=== PATIENT | male | born 1955 | race Caucasian/White ===

== ENCOUNTER 2016-04-28 08:24 | Observation (INO) | payer MEDICARE, OTHER ==
[2016-04-28] VITALS (8 sets, daily range): BP systolic 127–190; BP diastolic 82–108; PULSE 68–128; RESP 17–28; TEMP 96.7–98; O2SAT 91–100
[~2016-04-28] VITALS: Ht 175.3 cm; Wt 75.6 kg
[~2016-04-28 08:24] MED LIST: ALBU1.25 NEB; ALBU8I INH; DILT180C PO; DOXY100T PO; LISI-360 PO; PRED20 PO
[2016-04-28] MEDS ORDERED: SODIUM CHLORIDE 0.9% FLUSH 5 ML FLUSH IVF PRN ×2 (08:45→10:30)
[2016-04-28] MEDS ORDERED: methylPREDNISolone SOD SUCC 125 MG/2 ML VIAL IVP ONE (08:45)
[2016-04-28] MEDS ORDERED: ALBUAER3 INH (08:47)
[2016-04-28] MEDS ORDERED: ALBU1.25 NEB (08:47)
--- NOTE | 2016-04-28 08:57 | RADRPT ---
EXAM DATE/TIME: 04/28/2016 08:48 [facility] COMPARISON: No previous studies available for comparison. INDICATIONS : Very short of breath, smoker MEDICAL HISTORY : Emphysema. Chronic obstructive pulmonary disease. SURGICAL HISTORY : None. ENCOUNTER: Initial ACUITY: 1 day PAIN SCORE: 0/10 LOCATION: Bilateral chest FINDINGS: A single view of the chest demonstrates hyperinflation which can be seen with COPD. No infiltrates a re seen. Heart is normal in size. The mediastinal contours are unremarkable. Osseous structures are intact. CONCLUSION: Hyperinflation which can be seen with COPD. No evidence for an infiltrate. Enoch Edge MD on April 28, 2016 at 8:55 Board Certified Radiologist. This report was verified electronically.
[2016-04-28] MEDS: RESP: ALBUTEROL 2.5 MG/IPRATROPIUM 0.5 MG NEB (SCH) INH ×2 (08:59→09:00)
--- NOTE | 2016-04-28 09:03 | PD ---
HPI Chief Complaint: Respiratory Symptoms Time Seen by Provider: 08:36 Travel History International Travel<30 days: No Contact w/Intl Traveler<30days: No Traveled to known affect area: No History of Present Illness HPI Patient is a pleasant 60-year-old male who presents the emergency department with complaint of shortness of breath. Patient has long-standing history of COPD and ran out of his home albuterol approximately 2-3 days ago. Since, he has had increasing shortness of breath, wheezing. He has a chronic smoker's cough but this is increased in frequency and he is now producing sputum which is atypical for him. Patient denies any fevers, chills, peripheral edema, history of CHF. PFSH Past Medical History Arthritis: No Asthma: Yes Autoimmune Disease: No Blood Disorders: No Anxiety: No Depression: No Heart Rhythm Problems: No Cancer: No Cardiovascular Problems: Yes High Cholesterol: No Chemotherapy: No Chest Pain: No Congestive Heart Failure: No COPD: Yes Cerebrovascular Accident: No Coronary Artery Disease: No Diabetes: No Diminished Hearing: No Endocrine: No Gastrointestinal Disorders: Yes (NUMEROUS GI SERIES, ENDOSCOPY) GERD: Yes Glaucoma: No Genitourinary: No Headaches: No Hepatitis: Yes (HEP A IN HIGH SCHOOL) Hiatal Hernia: No Hypertension: Yes Immune Disorder: No Kidney Stones: No Musculoskeletal: No Neurologic: No Psychiatric: No Reproductive: No Respiratory: Yes Immunizations Current: No Migraines: No Myocardial Infarction: No Pneumonia: Yes Radiation Therapy: No Renal Failure: No Seizures: No Sickle Cell Disease: No Sleep Apnea: No Thyroid Disease: No Ulcer: No Influenza Vaccination: Yes Past Surgical History Abdominal Surgery: Yes ( UPPER GI) AICD: No Appendectomy: No Arteriovenous Shunt: No Cardiac Surgery: No Cholecystectomy: No Ear Surgery: No Endocrine Surgery: No Eye Surgery: No Genitourinary Surgery: No Gynecologic Surgery: No Insulin Pump: No Joint Replacement: No Oral Surgery: No Pacemaker: No Thoracic Surgery: No Social History Alcohol Use: No Tobacco Use: Yes (1PPW) Substance Use: No (DENIES) Allergies-Medications (Allergen,Severity, Reaction): Coded Allergies: Codeine (Verified Adverse Reaction, Mild, HEART SKIPPS BEAT., 07/23/15) Reported Meds & Prescriptions Reported Meds & Active Scripts Active Reported Lisinopril 10 Mg Tab 10 Mg PO DAILY Cartia Xt (Diltiazem ER 24 HR) 180 Mg Caper 180 Mg PO DAILY Albuterol Neb (Albuterol Sulfate) 1.25 Mg/3 Ml Neb 1.25 Mg NEB Q4HR NEB PRN Proair Hfa 8.5 GM Inh (Albuterol Sulfate) 90 Mcg/Act Aer 1 Puff INH Q4H PRN 108 mcg/actuation Review of Systems Except as stated in HPI: all other systems reviewed are Neg Physical Exam Narrative GENERAL: Adult male appearing older than stated age in mild to moderate respiratory distress SKIN: Warm and dry. HEAD: Normocephalic. EYES: No scleral icterus. No injection or drainage. ENT: Mucous membranes pink and moist. NECK: Supple without JVD CARDIOVASCULAR: Tachycardic with heart rate in the 110s, regular rhythm. No murmur appreciated. RESPIRATORY: Mild to moderate respiratory distress with tachypnea, increased work of breathing, prolonged expiratory phase and diffuse wheezing GASTROINTESTINAL: Abdomen soft, non-tender, nondistended. MUSCULOSKELETAL: No edema. NEUROLOGICAL: Awake and alert. Motor grossly within normal limits. Normal speech. PSYCHIATRIC: Appropriate mood and affect; insight and judgment normal. Data Data Last Documented VS Vital Signs Date Time Temp Pulse Resp B/P Pulse Ox O2 Delivery O2 Flow Rate FiO2 04/28/16 09:00 100 21 04/28/16 08:35 122 22 Room Air 04/28/16 08:27 98.0 180/102 Orders Iv Access Insert/Monitor (04/28/16 08:36) Electrocardiogram (04/28/16 08:36) Ecg Monitoring (04/28/16 08:36) Oximetry (04/28/16 08:36) Chest, Single Ap (04/28/16 08:36) Sodium Chloride 0.9% Flush (Ns Flush) (04/28/16 08:45) Methylprednisolone So Succ Inj (Solumedr (04/28/16 08:45) Albuterol-Ipratropium Neb (Duoneb Neb) (04/28/16 08:45) Complete Blood Count With Diff (04/28/16 08:54) Basic Metabolic Panel (Bmp) (04/28/16 08:54) Blood Culture (04/28/16 08:54) Lactic Acid Sepsis Protocol (04/28/16 08:54) Labs Laboratory Tests Test 04/28/16 04/28/16 08:50 08:55 White Blood Count 12.7 TH/MM3 Red Blood Count 4.31 MIL/MM3 Hemoglobin 13.6 GM/DL Hematocrit 40.4 % Mean Corpuscular Volume 93.7 FL Mean Corpuscular Hemoglobin 31.6 PG Mean Corpuscular Hemoglobin 33.7 % Concent Red Cell Distribution Width 14.7 % Platelet Count 262 TH/MM3 Mean Platelet Volume 8.3 FL Neutrophils (%) (Auto) 77.4 % Lymphocytes (%) (Auto) 13.2 % Monocytes (%) (Auto) 8.0 % Eosinophils (%) (Auto) 0.9 % Basophils (%) (Auto) 0.5 % Neutrophils # (Auto) 9.8 TH/MM3 Lymphocytes # (Auto) 1.7 TH/MM3 Monocytes # (Auto) 1.0 TH/MM3 Eosinophils # (Auto) 0.1 TH/MM3 Basophils # (Auto) 0.1 TH/MM3 CBC Comment DIFF FINAL Differential Comment Sodium Level 134 MEQ/L Potassium Level 4.4 MEQ/L Chloride Level 100 MEQ/L Carbon Dioxide Level 22.8 MEQ/L Anion Gap 11 MEQ/L Blood Urea Nitrogen 16 MG/DL Creatinine 1.07 MG/DL Estimat Glomerular Filtration 70 ML/MIN Rate Random Glucose 106 MG/DL Calcium Level 9.2 MG/DL Lactic Acid Level 1.1 mmol/L MDM Medical Decision Making Medical Screen Exam Complete: Yes Emergency Medical Condition: Yes Medical Record Reviewed: Yes Differential Diagnosis 60-year-old male with long-standing history of COPD still smoking here with 2-3 days of increasing shortness of breath, wheezing, cough and sputum production since running out of albuterol. Differential includes COPD exacerbation/ bronchitis, pneumonia, pneumothorax, less likely arrhythmia, ACS, symptomatic anemia or PE. Narrative Course Patient placed on monitor, IV established and blood obtained. A twelve-lead EKG shows sinus tachycardia, rate [address] or T-wave abnormalities and normal intervals. Portable chest x-ray obtained that by my read shows hyperinflation but no evidence of focal pulmonary infiltrate. Patient given DuoNeb 3, 125 mg Solu-Medrol, azithromycin. CBC, BMP, blood cultures, lactic acid obtained and unremarkable. Patient feels improved however remains tachycardic and tachypneic and will be admitted for further optimization of his COPD exacerbation. Sepsis Criteria SIRS Criteria (2 or more): Heart rate over 90, RR > 20 or PaCO2 < 32, WBC > 83510, < 4000 or > 10% bands Criteria Outcome: Meets SIRS criteria Diagnosis Primary Impression: COPD exacerbation Admitting Information Admitting Physician Requests: Observation Lqauita Dumont MD Apr 28, 2016 09:03 Laquita Dumont MD Apr 28, 2016 09:03
[2016-04-28] MEDS ORDERED: LISI10TA3 PO (09:09)
[2016-04-28] MEDS ORDERED: CART180C PO (09:09)
[2016-04-28 09:11] LABS: AUTOMATED NEUTROPHIL # 9.8 TH/MM3 (1.8-7.7); BASOPHIL # 0.1 TH/MM3 (0-0.2); BASOPHIL % 0.5 % (0.0-2.0); EOSINOPHIL # 0.1 TH/MM3 (0-0.4); EOSINOPHIL % 0.9 % (0.0-4.0); HEMATOCRIT 40.4 % (39.0-51.0); HEMO FLAGS DIFF FINAL; LYMPH % 13.2 % (9.0-44.0); LYMPHOCYTE # 1.7 TH/MM3 (1.0-4.8); MEAN CELL VOLUME 93.7 FL (80.0-100.0); MEAN CORPUSCULAR HEMOGLOBIN 31.6 PG (27.0-34.0); MEAN CORPUSCULAR HGB CONC 33.7 % (32.0-36.0); NEUT % 77.4 % (16.0-70.0); PLATELET COUNT 262 TH/MM3 (150-450); RED BLOOD COUNT 4.31 MIL/MM3 (4.50-5.90); RED CELL DISTRIBUTION WIDTH 14.7 % (11.6-17.2); WHITE BLOOD COUNT 12.7 TH/MM3 (4.0-11.0)
[2016-04-28 09:30] LABS: BICARBONATE 22.8 MEQ/L (21.0-32.0); POTASSIUM 4.4 MEQ/L (3.5-5.1)
[2016-04-28] MEDS ORDERED: AZITHROMYCIN 250 MG TAB PO ONE (09:45)
[2016-04-28] MEDS ORDERED: KETOROLAC TROMETHAMINE 30 MG/ML (IVP) VIAL IV PUSH ONE (10:00)
--- NOTE | 2016-04-28 10:27 | HHI.HP ---
[facility] Service [facility] Primary Care Physician No Primary Care Physician Admission Diagnosis COPD exacerbation Diagnoses: (1) COPD exacerbation Chief Complaint: Shortness of breath Travel History International Travel<30 Days: No Contact w/Intl Traveler <30 Da: No Traveled to Known Affected Are: No History of Present Illness 60-year-old male with a history of COPD, nicotine dependence presented to the ED today for evaluation of worsening shortness of breath 3 days duration associated with pleuritic chest pain along with nonproductive cough without any febrile episode. Patient states, he has run out of his albuterol over the past 3-4 days. He denies any hemoptysis or GI bleed. During my exam, patient appears to be stable as he has received breathing treatment along with steroids in the ED. Vitals stable. Chest x-ray with finding of hyperinflated lung. Review of Systems Other 12 systems reviewed and are negative except for the ones mentioned in the history of present illness Past Family Social History Past Medical History COPD CHF Hypertension Past Surgical History No previous surgeries Reported Medications Lisinopril 10 Mg Tab 10 Mg PO DAILY Cartia Xt (Diltiazem ER 24 HR) 180 Mg Caper 180 Mg PO DAILY Albuterol Neb (Albuterol Sulfate) 1.25 Mg/3 Ml Neb 1.25 Mg NEB Q4HR NEB PRN Proair Hfa 8.5 GM Inh (Albuterol Sulfate) 90 Mcg/Act Aer 1 Puff INH Q4H PRN 108 mcg/actuation Allergies: Coded Allergies: Codeine (Verified Adverse Reaction, Mild, HEART SKIPPS BEAT., 07/23/15) Family History Significant for lung disease Social History Patient smokes a pack a surgery date for the last 30 years, he does drink alcohol occasionally. Denies any illicit drugs Physical Exam Vital Signs Vital Signs Date Time Temp Pulse Resp B/P Pulse Ox O2 Delivery O2 Flow Rate FiO2 04/28/16 10:00 99 17 127/82 95 Room Air 04/28/16 09:00 100 21 04/28/16 08:35 122 22 96 Room Air 04/28/16 08:27 98.0 128 28 180/102 91 Room Air Physical Exam GENERAL: This is a well-nourished, well-developed patient, in no apparent distress. SKIN: No rashes, ecchymoses or lesions. Cool and dry. HEAD: Atraumatic. Normocephalic. No temporal or scalp tenderness. EYES: Pupils equal round and reactive. Extraocular motions intact. No scleral icterus. No injection or drainage. ENT: Nose without bleeding, purulent drainage or septal hematoma. Throat without erythema, tonsillar hypertrophy or exudate. Uvula midline. Airway patent. NECK: Trachea midline. No JVD or lymphadenopathy. Supple, nontender, no meningeal signs. CARDIOVASCULAR: Regular rate and rhythm without murmurs, gallops, or rubs. RESPIRATORY: Clear to auscultation. Breath sounds equal bilaterally. Bilateral expiratory wheezes GASTROINTESTINAL: Abdomen soft, non-tender, nondistended. No hepato-splenomegaly , or palpable masses. No guarding. MUSCULOSKELETAL: Extremities without clubbing, cyanosis, or edema. No joint tenderness, effusion, or edema noted. No calf tenderness. Negative Homans sign bilaterally. NEUROLOGICAL: Awake and alert. Cranial nerves II through XII intact. Motor and sensory grossly within normal limits. Five out of 5 muscle strength in all muscle groups. Normal speech. Laboratory Laboratory Tests Test 04/28/16 04/28/16 08:50 08:55 White Blood Count 12.7 Red Blood Count 4.31 Hemoglobin 13.6 Hematocrit 40.4 Mean Corpuscular Volume 93.7 Mean Corpuscular Hemoglobin 31.6 Mean Corpuscular Hemoglobin 33.7 Concent Red Cell Distribution Width 14.7 Platelet Count 262 Mean Platelet Volume 8.3 Neutrophils (%) (Auto) 77.4 Lymphocytes (%) (Auto) 13.2 Monocytes (%) (Auto) 8.0 Eosinophils (%) (Auto) 0.9 Basophils (%) (Auto) 0.5 Neutrophils # (Auto) 9.8 Lymphocytes # (Auto) 1.7 Monocytes # (Auto) 1.0 Eosinophils # (Auto) 0.1 Basophils # (Auto) 0.1 CBC Comment DIFF FINAL Differential Comment Sodium Level 134 Potassium Level 4.4 Chloride Level 100 Carbon Dioxide Level 22.8 Anion Gap 11 Blood Urea Nitrogen 16 Creatinine 1.07 Estimat Glomerular Filtration 70 Rate Random Glucose 106 Calcium Level 9.2 Lactic Acid Level 1.1 Date/Time Procedure Status Source Growth 04/28/16 08:55 Aerobic Blood Culture Received Blood Peripheral Pending 04/28/16 08:55 Anaerobic Blood Culture Received Blood Peripheral Pending Result Diagram: 04/28/16 0850 04/28/16 0850 Imaging Last Impressions Chest X-Ray 04/28/16 0836 Signed Impressions: Service Date/Time: Thursday, April 28, 2016 08:48 - CONCLUSION: Hyperinflation which can be seen with COPD. No evidence for an infiltrate. Enoch Edge MD Assessment and Plan Problem List: (1) COPD exacerbation ICD Code: J44.1 Status: Acute Assessment and Plan 60-year-old man with COPD exacerbation: Chest x-ray noted and reviewed by me with finding of hyperinflation of lungs, status post Solu Medrol 125 mg 1 and azithromycin 500 mg IV 1 in ED; continue Solu-Medrol 40 mg every 8 hour, azithromycin 500 mg by mouth 3 days total, scheduled DuoNeb and when necessary, Symbicort and Spiriva. Check sputum and blood culture. Maintain oxygen saturation above 92% . Advised on tobacco cessation Nicotine dependence: Counseled to quit, starts Nicotine patch History of CHF exacerbation, hypertension. Resume outpatient medications DVT prophylaxis: B-SCDs Code Status Full code Discussed Condition With Patient, ED physician Physician Certification 2 Midnight Certification Type: Admission for Inpatient Services Order for Inpatient Services The services are ordered in accordance with Medicare regulations or non- Medicare payer requirements, as applicable. In the case of services not specified as inpatient-only, they are appropriately provided as inpatient services in accordance with the 2-midnight benchmark. Estimated LOS (days): 2 days is the estimated time the patient will need to remain in the hospital, assuming treatment plan goals are met and no additional complications. Post-Hospital Plan: Not yet determined Enoch Abrams MD Apr 28, 2016 10:27
[2016-04-28] MEDS ORDERED: hydrALAZINE HCL 25 MG TAB PO PRN (10:30)
[2016-04-28] MEDS ORDERED: RESP: ALBUTEROL 2.5 MG/IPRATROPIUM 0.5 MG NEB (PRN) NEB (10:30)
[2016-04-28] MEDS: RESP: ALBUTEROL 2.5 MG/IPRATROPIUM 0.5 MG NEB (SCH) NEB ×2 (13:07→20:53)
[2016-04-28] MEDS ORDERED: ONDANSETRON HCL 4 MG/2 ML VIAL ONE (15:54)
[2016-04-28] MEDS: ONDANSETRON HCL 4 MG/2 ML VIAL IV PUSH PRN ×2 (16:24→20:34)
[2016-04-28] MEDS: methylPREDNISolone SOD SUCC 125 MG/2 ML VIAL IVP SCH (17:48)
[2016-04-28] MEDS: SODIUM CHLORIDE 0.9% FLUSH 5 ML FLUSH IVF SCH (20:34)
[2016-04-28] MEDS: BUDESONIDE-FORMOTEROL 160/4.5 MCG INHALER INH SCH (20:58)
[2016-04-28] MEDS ORDERED: REMOVE OLD NICODERM (NICOTINE) PATCH TD SCH (21:00)
--- NOTE | 2016-04-28 22:40 | EKG ---
Date Performed: 04/28/2016 Time Performed: 08:57:43 PTAGE: 60 years EKG: SINUS TACHYCARDIA ABNORMAL RHYTHM ECG PREVIOUS TRACING : 07/23/2015 06.26 DOCTOR: Alban Peña Interpretating Date/Time 04/28/2016 22:40:05
[2016-04-29 00:23] VITALS: BP 146/95; PULSE 87; RESP 20; TEMP 96.7; O2SAT 93
[2016-04-29] MEDS ORDERED: PROMETHAZINE INJ 25 MG/ML VIAL IM ONE (00:45)
[2016-04-29] MEDS: methylPREDNISolone SOD SUCC 125 MG/2 ML VIAL IVP SCH ×2 (01:20→08:20)
[2016-04-29 05:00] VITALS: BP 120/86; PULSE 88; RESP 20; TEMP 98.6; O2SAT 94
[2016-04-29 07:03] LABS: AUTOMATED NEUTROPHIL # 11.3 TH/MM3 (1.8-7.7); BASOPHIL # 0.1 TH/MM3 (0-0.2); BASOPHIL % 0.7 % (0.0-2.0); EOSINOPHIL % 0.1 % (0.0-4.0); HEMATOCRIT 39.6 % (39.0-51.0); HEMO FLAGS DIFF FINAL; LYMPH % 6.2 % (9.0-44.0); LYMPHOCYTE # 0.8 TH/MM3 (1.0-4.8); MEAN CORPUSCULAR HEMOGLOBIN 31.8 PG (27.0-34.0); MEAN CORPUSCULAR HGB CONC 33.5 % (32.0-36.0); MONO % 1.6 % (0.0-8.0); NEUT % 91.4 % (16.0-70.0); PLATELET COUNT 283 TH/MM3 (150-450); RED BLOOD COUNT 4.17 MIL/MM3 (4.50-5.90); RED CELL DISTRIBUTION WIDTH 14.8 % (11.6-17.2); WHITE BLOOD COUNT 12.4 TH/MM3 (4.0-11.0)
[2016-04-29 07:19] LABS: CHLORIDE 98 MEQ/L (98-107); POTASSIUM 4.3 MEQ/L (3.5-5.1); SODIUM (NA) 136 MEQ/L (136-145)
[2016-04-29 07:23] LABS: ANION GAP 9 MEQ/L (5-15); BICARBONATE 29.2 MEQ/L (21.0-32.0); BLOOD UREA NITROGEN 30 MG/DL (7-18)
[2016-04-29 07:27] LABS: GLOMERULAR FILTRATION RATE 56 ML/MIN (>89)
[2016-04-29 08:00] VITALS: BP 134/82; PULSE 98; RESP 20; TEMP 97; O2SAT 94
[2016-04-29] MEDS: BUDESONIDE-FORMOTEROL 160/4.5 MCG INHALER INH SCH (08:11)
[2016-04-29] MEDS: ONDANSETRON HCL 4 MG/2 ML VIAL IV PUSH PRN (08:13)
[2016-04-29] MEDS: SODIUM CHLORIDE 0.9% FLUSH 5 ML FLUSH IVF SCH (08:16)
[2016-04-29] MEDS: RESP: ALBUTEROL 2.5 MG/IPRATROPIUM 0.5 MG NEB (SCH) NEB (08:32)
[2016-04-29 08:35] VITALS: O2SAT 97
[2016-04-29] MEDS ORDERED: LISINOPRIL 10 MG TAB PO SCH (09:00)
[2016-04-29] MEDS ORDERED: DILTIAZEM-CD 180 MG CAP ER PO SCH (09:00)
[2016-04-29] MEDS ORDERED: AZITHROMYCIN 250 MG TAB PO SCH (09:00)
[2016-04-29] MEDS ORDERED: TIOTROPIUM BROMIDE 18 MCG INH INH SCH (09:00)
[2016-04-29] MEDS ORDERED: NICOTINE 21 MG/24 HR PATCH TD SCH (09:00)
--- NOTE | 2016-04-29 09:28 | HHI.PR ---
Subjective Remarks Patient examined today with Dr. Beckman. Patient states that he is doing much better. He is 100% better than he was yesterday. Patient is very eager to go home. At the present time patient not have a primary medical doctor, however he is in process of obtaining one. She does have welding specialist Dr. Martin which he has not seen in a while. Patient recommended to have close follow-up with Dr. Martin Objective Vitals Vital Signs Date Time Temp Pulse Resp B/P Pulse Ox O2 Delivery O2 Flow Rate FiO2 04/29/16 08:35 97 21 04/29/16 08:00 97.0 98 20 134/82 94 04/29/16 05:00 98.6 88 20 120/86 94 04/29/16 00:23 96.7 87 20 146/95 93 04/28/16 21:23 96.7 90 20 147/94 97 04/28/16 21:00 95 04/28/16 16:50 97.0 93 20 141/108 98 04/28/16 16:15 68 18 190/89 99 Nasal Cannula 2 04/28/16 13:00 86 18 148/87 96 Room Air 04/28/16 11:14 15 04/28/16 10:00 99 17 127/82 95 Room Air I/O 04/28/16 04/28/16 04/28/16 04/29/16 04/29/16 04/29/16 07:00 15:00 23:00 07:00 15:00 23:00 Intake Total 0 ml 0 ml Balance 0 ml 0 ml Intake IV Total 0 ml 0 ml # Voids 3 Result Diagram: 04/29/16 0639 04/29/16 0639 Objective Remarks GENERAL: Well-developed, well-nourished, in no acute distress. alert and orientated HEENT: Head is normocephalic without any lesions or masses noted. Facial features are symmetric. Eyes: Extraocular muscles are intact. Conjunctivae were clear. NECK: Supple without any masses. Trachea midline no deviation. No JVD, CARDIAC: Regular rhythm, regular rate. S1/S2 are heard. No murmurs gallops or rubs. LUNGS: Faint wheeze noted bilaterally. No rhonchi or rales. No use of accessory muscles on inspiration or expiration. ABDOMEN: Soft, nontender. Nondistended. Bowel sounds heard in all 4 quadrants. No organomegaly or masses. Negative rebound, negative guarding EXTREMITIES: No edema, pulses are equal bilaterally. No cyanosis or clubbing NEUROLOGY: Mood and affect appear appropriate. Cranial nerves II through XII grossly intact. Moving all extremities, speech is clear Urinary Catheter: No Vascular Central Line Catheter: No A/P Assessment and Plan Chronic obstructive pulmonary disease with acute exacerbation: Patient continues with chronic tobacco use. Patient counseled on cessation. Continue Solu-Medrol 40 mg every 8 hours, duo nebs, Spiriva, Symbicort, Zithromax. Patient not requiring any oxygen this time. He is 97% on room air. Did walk to patient with respiratory therapy with 93% O2 saturation. Hypertension, congestive heart failure: Home medications have been resumed DVT prophylaxis: Sequential compression devices Written by Ej Gordillo PA-C, acting as scribe for Dr. Beckman on 04/29/16 at 1040. The documentation accurately reflects the work and decisions performed face-to- face by Dr. Beckman on 04/29/16 at 1040. Discharge Planning Discharge home in stable condition Activity: Ad alysha. Diet: Healthy heart diet Medications per medication reconciliation Patient is to obtain primary medical doctor, patient follow-up with his welding specialist Dr. Martin. Ej Gordillo Apr 29, 2016 09:28
[2016-04-29] MEDS ORDERED: ALBUAER3 INH (09:31)
[2016-04-29] MEDS ORDERED: ALBU1.25 NEB (09:31)
[2016-04-29] MEDS ORDERED: PRED5PAK PO (09:31)
[2016-04-29] MEDS ORDERED: SYMB160A INH (09:31)
[2016-04-29] MEDS ORDERED: ZITH250T PO (09:31)
[2016-04-29] MEDS ORDERED: SPIRCAP INH (09:31)
--- NOTE | 2016-04-29 09:31 | HHI.DCPOC ---
Discharge Care Plan Diagnosis: (1) COPD exacerbation Goals to Promote Your Health * To prevent worsening of your condition and complications * To maintain your health at the optimal level Directions to Meet Your Goals Take your medications as prescribed Follow your dietary instruction Follow activity as directed Keep your appointments as scheduled Take your immunizations and boosters as scheduled If your symptoms worsen call your PCP, if no PCP go to Urgent Care Center or Emergency Room Smoking is Dangerous to Your Health. Avoid second hand smoke Call the 24-hour hour crisis hotline for domestic abuse at Ej Gordillo Apr 29, 2016 09:31
[2016-04-29] MEDS ORDERED: NEBUKIT5 (09:33)
[2016-04-29] MEDS ORDERED: NEBULIZER1 MI1 (09:33)
[2016-04-29] MEDS ORDERED: PROMETHAZINE INJ 25 MG/ML VIAL IM PRN (09:45)
[2016-04-29 09:46] LABS: THEOPHYLLINE LESS THAN 2.0 MCG/ML (10.0-20.0)
== END 2016-04-29 10:56 | disposition home or self-care (01) ==
LOC: NEPE 08:24 → NEDA 10:11 → OBSVTOIN 10:24 → INTOOBSV 10:24 → PH3B 16:42 → UNDODISIN 04-29 10:56
PROVIDERS: ADMIT Family Medicine; ATTEND Family Medicine
DX: J44.1 Chronic obstructive pulmonary disease with (acute) exacerbation (principal); R00.0 Tachycardia, unspecified; I11.0 Hypertensive heart disease with heart failure; I50.9 Heart failure, unspecified; F17.210 Nicotine dependence, cigarettes, uncomplicated; K21.9 Gastro-esophageal reflux disease without esophagitis
CPT/HCPCS: 71010; 80048; 80198; 83605; 85025; 87040; 93005; 94620; 94640; 94664; 96374; 99284; G0378; J1885; J2405; J2550; J2930

== ENCOUNTER 2016-06-22 05:16 | Observation (INO) | payer MEDICARE, OTHER ==
[~2016-06-22] VITALS: Ht 172.7 cm; Wt 80.0 kg
[2016-06-22] VITALS (12 sets, daily range): BP systolic 110–148; BP diastolic 65–95; PULSE 85–100; RESP 17–20; TEMP 97.3–98.5; O2SAT 93–100
[~2016-06-22 05:16] MED LIST changes: -ALBU8I INH; +ALBUAER3 INH; +CART180C PO; -DILT180C PO; -DOXY100T PO; -LISI-360 PO; +LISI10TA3 PO; +NEBUKIT5; +NEBULIZER1 MI1; -PRED20 PO; +PRED5PAK PO; +SPIRCAP INH; +SYMB160A INH; +ZITH250T PO
[2016-06-22] MEDS ORDERED: RESP: ALBUTEROL 2.5 MG/IPRATROPIUM 0.5 MG NEB (SCH) ONE (05:29)
[2016-06-22] MEDS ORDERED: SODIUM CHLORIDE 0.9% FLUSH 10 ML FLUSH IVF PRN (05:30)
[2016-06-22] MEDS: RESP: ALBUTEROL 2.5 MG/IPRATROPIUM 0.5 MG NEB (SCH) INH ×2 (05:34→05:35)
--- NOTE | 2016-06-22 06:32 | RADRPT ---
EXAM DATE/TIME: 06/22/2016 05:46 [facility] COMPARISON: CHEST SINGLE AP, April 28, 2016, 8:48. INDICATIONS : Shortness of breath MEDICAL HISTORY : Emphysema. Chronic obstructive pulmonary disease. SURGICAL HISTORY : None. ENCOUNTER: Initial ACUITY: 1 day PAIN SCORE: 0/10 LOCATION: Bilateral chest FINDINGS: A single view of the chest demonstrates the lungs to be symmetrically aerated without evidence of mas s, infiltrate or effusion. The lungs are hyperaerated bilaterally. Stable chronic pleural thickening in both apices. The cardiomediastinal contours are unremarkable. Osseous structures are intact. CONCLUSION: No acute disease. No significant change has occurred. Buck Joyce MD on June 22, 2016 at 6:30 Board Certified Radiologist. This report was verified electronically.
[2016-06-22 06:41] LABS: AUTOMATED NEUTROPHIL # 4.1 TH/MM3 (1.8-7.7); BASOPHIL # 0.1 TH/MM3 (0-0.2); EOSINOPHIL # 0.4 TH/MM3 (0-0.4); EOSINOPHIL % 5.4 % (0.0-4.0); HEMATOCRIT 39.8 % (39.0-51.0); HEMO FLAGS DIFF FINAL; LYMPH % 31.3 % (9.0-44.0); LYMPHOCYTE # 2.5 TH/MM3 (1.0-4.8); MEAN CELL VOLUME 95.9 FL (80.0-100.0); MEAN CORPUSCULAR HEMOGLOBIN 31.9 PG (27.0-34.0); MEAN CORPUSCULAR HGB CONC 33.2 % (32.0-36.0); MONO % 11.1 % (0.0-8.0); NEUT % 51.2 % (16.0-70.0); PLATELET COUNT 287 TH/MM3 (150-450); RED BLOOD COUNT 4.15 MIL/MM3 (4.50-5.90); RED CELL DISTRIBUTION WIDTH 14.6 % (11.6-17.2)
--- NOTE | 2016-06-22 06:44 | PD ---
HPI Chief Complaint: Respiratory Symptoms Time Seen by Provider: 05:28 Travel History International Travel<30 days: No Contact w/Intl Traveler<30days: No Traveled to known affect area: No History of Present Illness HPI 60-year-old male came to the emergency room with history of shortness of breath and COPD exacerbation since yesterday. Patient was brought in by EMS. Patient has history of COPD and still smokes about 2 cigars a day. He says that he ran out of his inhaler and for his friend's inhaler to use but nothing was helping and he called 911. Patient receive 2 albuterol nebs on route and IV Solu- Medrol. He is able to answer questions appropriately and give history. No history of fever or chills. He is coughing a little bit. He says this doesn't hurt but just feels tight. Patient has history of COPD and has been admitted in the hospital in the past. He does not know for sure if he has never been intubated. [facility] Past Medical History Narrative Medical List of his past medical, surgical, social and family history was reviewed from the nursing note. Arthritis: No Asthma: Yes Autoimmune Disease: No Blood Disorders: No Anxiety: No Depression: No Heart Rhythm Problems: Yes (skip beat, pt on Diltiazem) Cancer: No Cardiovascular Problems: Yes High Cholesterol: No Chemotherapy: No Chest Pain: No Congestive Heart Failure: No COPD: Yes Cerebrovascular Accident: No Coronary Artery Disease: Yes Diabetes: No Diminished Hearing: No Endocrine: No Gastrointestinal Disorders: Yes (NUMEROUS GI SERIES, ENDOSCOPY) GERD: Yes Glaucoma: No Genitourinary: No Headaches: No Hepatitis: Yes (HEP A IN HIGH SCHOOL) Hiatal Hernia: No Hypertension: Yes Immune Disorder: No Kidney Stones: No Musculoskeletal: No Neurologic: No Psychiatric: No Reproductive: No Respiratory: Yes Immunizations Current: No Migraines: No Myocardial Infarction: No Pneumonia: Yes Radiation Therapy: No Renal Failure: No Seizures: No Sickle Cell Disease: No Sleep Apnea: No Thyroid Disease: No Ulcer: No Past Surgical History Abdominal Surgery: Yes ( UPPER GI) AICD: No Appendectomy: No Arteriovenous Shunt: No Cardiac Surgery: No Cholecystectomy: No Ear Surgery: No Endocrine Surgery: No Eye Surgery: No Genitourinary Surgery: No Gynecologic Surgery: No Insulin Pump: No Joint Replacement: No Oral Surgery: No Pacemaker: No Thoracic Surgery: No Other Surgery: Yes Social History Alcohol Use: No Tobacco Use: Yes (1PPW) Substance Use: No (DENIES) Allergies-Medications (Allergen,Severity, Reaction): Coded Allergies: Codeine (Verified Adverse Reaction, Mild, HEART SKIPPS BEAT., 06/22/16) Comments List of his allergies reviewed from the nursing note. Reported Meds & Prescriptions Reported Meds & Active Scripts Active Nebulizer Kit/Tubing/Mout (N/A) 1 Kit Kit 1 Kit .ROUTE DIRECTED Nebulizer 1 Mis Mis 1 Ea .ROUTE DIRECTED Spiriva Handihaler (Tiotropium Inh) 18 Mcg Cap 18 Mcg INH DAILY 30 Days Symbicort Inh (Budesonide/Formoterol Fumarate) 160-4.5 Mcg/Act Aero 2 Puff INH Q12HR 30 Days Albuterol Neb (Albuterol Sulfate) 1.25 Mg/3 Ml Neb 1.25 Mg NEB Q4HR NEB PRN Proair Hfa 8.5 GM Inh (Albuterol Sulfate) 90 Mcg/Act Aer 1 Puff INH Q4H PRN 108 mcg/actuation Reported Lisinopril 10 Mg Tab 10 Mg PO DAILY Cartia Xt (Diltiazem ER 24 HR) 180 Mg Caper 180 Mg PO DAILY Narrative Medication List of his home medications reviewed from the nursing note. Review of Systems Except as stated in HPI: all other systems reviewed are Neg Physical Exam Narrative GENERAL: Awake, alert, moderate distress SKIN: Focused skin assessment warm/dry. HEAD: Atraumatic. Normocephalic. EYES: Pupils equal and round. No scleral icterus. No injection or drainage. ENT: No nasal bleeding or discharge. Mucous membranes pink and moist. NECK: Trachea midline. No JVD. CARDIOVASCULAR: Regular rate and rhythm. No murmur appreciated. RESPIRATORY: Decreased air entry bilaterally, end expiratory wheeze GASTROINTESTINAL: Abdomen soft, non-tender, nondistended. Hepatic and splenic margins not palpable. MUSCULOSKELETAL: No obvious deformities. No clubbing. No cyanosis. No edema. NEUROLOGICAL: Awake and alert. No obvious cranial nerve deficits. Motor grossly within normal limits. Normal speech. PSYCHIATRIC: Appropriate mood and affect; insight and judgment normal. Data Data Last Documented VS Vital Signs Date Time Temp Pulse Resp B/P Pulse Ox O2 Delivery O2 Flow Rate FiO2 06/22/16 07:18 87 20 110/72 96 Nasal Cannula 2 06/22/16 05:21 98.5 Orders Complete Blood Count With Diff (06/22/16 05:28) Basic Metabolic Panel (Bmp) (06/22/16 05:28) B-Type Natriuretic Peptide (06/22/16 05:28) Prothrombin Time / Inr (Pt) (06/22/16 05:28) Troponin I (06/22/16 05:28) Iv Access Insert/Monitor (06/22/16 05:28) Ecg Monitoring (06/22/16 05:28) Oximetry (06/22/16 05:28) Oxygen Administration (06/22/16 05:28) Chest, Single Ap (06/22/16 05:28) Sodium Chloride 0.9% Flush (Ns Flush) (06/22/16 05:30) Albuterol-Ipratropium Neb (Duoneb Neb) (06/22/16 05:30) Albuterol-Ipratropium Neb (Duoneb Neb) (06/22/16 05:29) Albuterol Neb (Albuterol Neb) (06/22/16 06:45) Electrocardiogram (06/22/16 06:39) Admit Order (Ed Use Only) (06/22/16 08:12) Labs Laboratory Tests Test 06/22/16 06:15 White Blood Count 8.0 TH/MM3 Red Blood Count 4.15 MIL/MM3 Hemoglobin 13.2 GM/DL Hematocrit 39.8 % Mean Corpuscular Volume 95.9 FL Mean Corpuscular Hemoglobin 31.9 PG Mean Corpuscular Hemoglobin 33.2 % Concent Red Cell Distribution Width 14.6 % Platelet Count 287 TH/MM3 Mean Platelet Volume 8.7 FL Neutrophils (%) (Auto) 51.2 % Lymphocytes (%) (Auto) 31.3 % Monocytes (%) (Auto) 11.1 % Eosinophils (%) (Auto) 5.4 % Basophils (%) (Auto) 1.0 % Neutrophils # (Auto) 4.1 TH/MM3 Lymphocytes # (Auto) 2.5 TH/MM3 Monocytes # (Auto) 0.9 TH/MM3 Eosinophils # (Auto) 0.4 TH/MM3 Basophils # (Auto) 0.1 TH/MM3 CBC Comment DIFF FINAL Differential Comment Prothrombin Time 10.9 SEC Prothromb Time International 1.0 RATIO Ratio Sodium Level 140 MEQ/L Potassium Level 4.4 MEQ/L Chloride Level 106 MEQ/L Carbon Dioxide Level 26.9 MEQ/L Anion Gap 7 MEQ/L Blood Urea Nitrogen 23 MG/DL Creatinine 1.08 MG/DL Estimat Glomerular Filtration 70 ML/MIN Rate Random Glucose 114 MG/DL Calcium Level 8.4 MG/DL Troponin I LESS THAN 0.02 NG/ML B-Type Natriuretic Peptide 14 PG/ML MDM Medical Decision Making Medical Screen Exam Complete: Yes Emergency Medical Condition: Yes Medical Record Reviewed: Yes Interpretation(s) Twelve-lead EKG was reviewed by me. Normal sinus rhythm, normal axis, nonspecific ST-T wave changes. Heart rate of 93 bpm. Differential Diagnosis COPD exacerbation, pneumonia, CHF Narrative Course 6:37 AM patient was given 3 DuoNeb. Awaiting for the blood test results. Chest x-rays within normal limit. Patient continues to be wheezy still. I have ordered 2 more albuterol nebulizers. Patient will have to be signed out to the oncoming ER physician for reassessment and disposition. In my opinion if he continues to wheeze after the 2 nebulizers he will require admission. Procedures EKG Prior to Arrival: No Scripts Albuterol 18 GM Inh (Ventolin Hfa 18 GM Inh)90 Mcg/Act Aer2 Puff INH Q4H PRN ( SHORTNESS OF BREATH) #1 INHALER Ref 1 Prov:Irais Gould MD 06/23/16 Famotidine 20 Mg Tab20 Mg PO BID 4 Days Prov:Irais Gould MD 06/23/16 Prednisone 20 Mg Tab20 Mg PO BID 4 Days Ref 0 Prov:Irais Gould MD 06/23/16 Tiotropium Inh (Spiriva Handihaler)18 Mcg Cap18 Mcg INH DAILY #1 CAP Ref 1 Prov:Irais Gould MD 06/23/16 Budesonide-Formoterol Inh (Symbicort Inh)160-4.5 Mcg/Act Aero2 Puff INH Q12HR # 1 INHALER Ref 1 Prov:Irais Gould MD 06/23/16 Tiffanie Paniagua MD Jun 22, 2016 06:44
[2016-06-22] MEDS: RESP: ALBUTEROL 2.5 MG/3 ML NEB (SCH) INH ×2 (06:48→06:49)
[2016-06-22 06:57] LABS: PROTHROMBIN TIME - PATIENT 10.9 SEC (9.8-11.6)
--- NOTE | 2016-06-22 07:04 | PD ---
Physical Exam Date Seen by Provider: Jun 22, 2016 Time Seen by Provider: 07:01 Narrative The patient is a 60-year-old male who was initially evaluated by the previous physician, Dr. Paniagua. Please refer to the initial history, physical , diagnostic evaluation, treatment modality plan. The patient was signed out at 7 AM with reevaluation of dyspnea after 3 albuterol nebulizers and 2 DuoNeb' s. Data Data Last Documented VS Vital Signs Date Time Temp Pulse Resp B/P Pulse Ox O2 Delivery O2 Flow Rate FiO2 06/22/16 07:18 87 20 110/72 96 Nasal Cannula 2 06/22/16 05:21 98.5 Orders Complete Blood Count With Diff (06/22/16 05:28) Basic Metabolic Panel (Bmp) (06/22/16 05:28) B-Type Natriuretic Peptide (06/22/16 05:28) Prothrombin Time / Inr (Pt) (06/22/16 05:28) Troponin I (06/22/16 05:28) Iv Access Insert/Monitor (06/22/16 05:28) Ecg Monitoring (06/22/16 05:28) Oximetry (06/22/16 05:28) Oxygen Administration (06/22/16 05:28) Chest, Single Ap (06/22/16 05:28) Sodium Chloride 0.9% Flush (Ns Flush) (06/22/16 05:30) Albuterol-Ipratropium Neb (Duoneb Neb) (06/22/16 05:30) Albuterol-Ipratropium Neb (Duoneb Neb) (06/22/16 05:29) Albuterol Neb (Albuterol Neb) (06/22/16 06:45) Electrocardiogram (06/22/16 06:39) Admit Order (Ed Use Only) (06/22/16 08:12) Labs Laboratory Tests Test 06/22/16 06:15 White Blood Count 8.0 TH/MM3 Red Blood Count 4.15 MIL/MM3 Hemoglobin 13.2 GM/DL Hematocrit 39.8 % Mean Corpuscular Volume 95.9 FL Mean Corpuscular Hemoglobin 31.9 PG Mean Corpuscular Hemoglobin 33.2 % Concent Red Cell Distribution Width 14.6 % Platelet Count 287 TH/MM3 Mean Platelet Volume 8.7 FL Neutrophils (%) (Auto) 51.2 % Lymphocytes (%) (Auto) 31.3 % Monocytes (%) (Auto) 11.1 % Eosinophils (%) (Auto) 5.4 % Basophils (%) (Auto) 1.0 % Neutrophils # (Auto) 4.1 TH/MM3 Lymphocytes # (Auto) 2.5 TH/MM3 Monocytes # (Auto) 0.9 TH/MM3 Eosinophils # (Auto) 0.4 TH/MM3 Basophils # (Auto) 0.1 TH/MM3 CBC Comment DIFF FINAL Differential Comment Prothrombin Time 10.9 SEC Prothromb Time International 1.0 RATIO Ratio Sodium Level 140 MEQ/L Potassium Level 4.4 MEQ/L Chloride Level 106 MEQ/L Carbon Dioxide Level 26.9 MEQ/L Anion Gap 7 MEQ/L Blood Urea Nitrogen 23 MG/DL Creatinine 1.08 MG/DL Estimat Glomerular Filtration 70 ML/MIN Rate Random Glucose 114 MG/DL Calcium Level 8.4 MG/DL Troponin I LESS THAN 0.02 NG/ML B-Type Natriuretic Peptide 14 PG/ML [facility] Medical Record Reviewed: Yes Supervised Visit with ROSENDO: No Interpretation(s) Last Impressions Chest X-Ray 06/22/16527 Signed Impressions: Service Date/Time: , June 22, 2016 05:46 - CONCLUSION: No acute disease. No significant change has occurred. Buck Joyce MD Laboratory Tests Test 06/22/16 06:15 White Blood Count 8.0 TH/MM3 Red Blood Count 4.15 MIL/MM3 Hemoglobin 13.2 GM/DL Hematocrit 39.8 % Mean Corpuscular Volume 95.9 FL Mean Corpuscular Hemoglobin 31.9 PG Mean Corpuscular Hemoglobin 33.2 % Concent Red Cell Distribution Width 14.6 % Platelet Count 287 TH/MM3 Mean Platelet Volume 8.7 FL Neutrophils (%) (Auto) 51.2 % Lymphocytes (%) (Auto) 31.3 % Monocytes (%) (Auto) 11.1 % Eosinophils (%) (Auto) 5.4 % Basophils (%) (Auto) 1.0 % Neutrophils # (Auto) 4.1 TH/MM3 Lymphocytes # (Auto) 2.5 TH/MM3 Monocytes # (Auto) 0.9 TH/MM3 Eosinophils # (Auto) 0.4 TH/MM3 Basophils # (Auto) 0.1 TH/MM3 CBC Comment DIFF FINAL Differential Comment Prothrombin Time 10.9 SEC Prothromb Time International 1.0 RATIO Ratio Sodium Level 140 MEQ/L Potassium Level 4.4 MEQ/L Chloride Level 106 MEQ/L Carbon Dioxide Level 26.9 MEQ/L Anion Gap 7 MEQ/L Blood Urea Nitrogen 23 MG/DL Creatinine 1.08 MG/DL Estimat Glomerular Filtration 70 ML/MIN Rate Random Glucose 114 MG/DL Calcium Level 8.4 MG/DL Troponin I LESS THAN 0.02 NG/ML B-Type Natriuretic Peptide 14 PG/ML EKG reveals normal sinus rhythm with a rate in 93. No ischemic changes noted. Differential Diagnosis Differential diagnosis includes COPD exacerbation, pneumonia, bronchitis, pulmonary embolism, acute coronary syndrome, congestive heart failure, pleural effusion. Narrative Course The patient was initially evaluated by the previous physician, Dr. Paniagua. Please refer to the initial history, physical, diagnostic evaluation, treatment modality plan. The patient was signed out at 7 AM with reevaluation of dyspnea and work of breathing after administered Solu-Medrol, DuoNeb's, and albuterol nebulizers. Chest x-ray was negative. Laboratory evaluation is unremarkable. The patient was reevaluated at 7:46 AM, patient continues to have mild dyspnea and diffuse wheezing. The patient states he currently does not have a primary physician, states he lost his physician when he changed from [facility] to Medicare. The patient does not have a nebulizer at home, continues to be symptomatic. After discussion with the patient was agreed he would be a 23 hour observation. Physician Communication Physician Communication The on-call medical service was paged for 23 hour observation. I discussed the patient with Dr. Gould who agrees with 23 hour observation. Diagnosis Primary Impression: COPD exacerbation Admitting Information Admitting Physician Requests: Observation Condition: Stable Grayson Short MD Jun 22, 2016 07:04
[2016-06-22 07:18] LABS: ANION GAP 7 MEQ/L (5-15); BICARBONATE 26.9 MEQ/L (21.0-32.0); BLOOD UREA NITROGEN 23 MG/DL (7-18); CHLORIDE 106 MEQ/L (98-107); GLOMERULAR FILTRATION RATE 70 ML/MIN (>89); POTASSIUM 4.4 MEQ/L (3.5-5.1); SODIUM (NA) 140 MEQ/L (136-145)
[2016-06-22] MEDS: methylPREDNISolone SOD SUCC 125 MG/2 ML VIAL IV PUSH SCH ×3 (10:15→20:46)
[2016-06-22] MEDS: RESP: ALBUTEROL 2.5 MG/IPRATROPIUM 0.5 MG NEB (SCH) NEB ×4 (11:02→23:13)
[2016-06-22] MEDS: NICOTINE 7 MG/24 HR PATCH T-DERMAL SCH (13:36)
--- NOTE | 2016-06-22 14:11 | EKG ---
Date Performed: 06/22/2016 Time Performed: 06:39:41 PTAGE: 60 years EKG: Sinus rhythm NORMAL ECG Compared to prior tracing no significant change PREVIOUS TRACING : 04/28/2016 08.57 DOCTOR: Gui Lauren Interpretating Date/Time 06/22/2016 14:07:10
[2016-06-22] MEDS ORDERED: ONDANSETRON HCL 4 MG/2 ML VIAL IV PUSH PRN ×2 (18:15→18:45)
[2016-06-22] MEDS ORDERED: RESP: ALBUTEROL 1.25 MG/3 ML NEB (PRN) NEB (18:15)
--- NOTE | 2016-06-22 18:24 | HHI.HP ---
[facility] No Primary Care Physician Admission Diagnosis COPD exacerbation Diagnoses: Chief Complaint: Shortness of breath Travel History International Travel<30 Days: No Contact w/Intl Traveler <30 Da: No Traveled to Known Affected Are: No History of Present Illness Patient is a very pleasant 60-year-old male with history of COPD who ran out of her nebulizers yesterday. Came to the ER complaining of shortness of breath. While at the ER received 3 treatments of nebulization with minimal relief with persistent wheezing-. Patient admitted patient for overnight observation and management. Patient states that he is trying to quit smoking. He denies any fever or chest pain denies any recent cough or any recent febrile illness. The patient states also history of hypertension but stopped taking blood pressure pills for the past 4-6 weeks now. Patient denies any recent flulike symptoms however complains of nausea. Patient states his strength to quit in his down to 4 cigarettes per day. Denies fever or sputum production. . Patient now states feeling slightly better but still tachypneic when talking. Patient also complains of nausea Review of Systems Constitutional: DENIES: Diaphoretic episodes, Fatigue, Fever, Weight gain, Weight loss, Chills, Dizziness, Change in appetite, Night Sweats Endocrine: DENIES: Heat/cold intolerance, Polydipsia, Polyuria, Polyphagia Eyes: DENIES: Blurred vision, Diplopia, Eye inflammation, Eye pain, Vision loss , Photosensitivity, Double Vision Ears, nose, mouth, throat: DENIES: Tinnitus, Hearing loss, Vertigo, Nasal discharge, Oral lesions, Throat pain, Hoarseness, Ear Pain, Running Nose, Epistaxis, Sinus Pain, Toothache, Odynophagia Respiratory: COMPLAINS OF: Shortness of breath Cardiovascular: DENIES: Chest pain, Palpitations, Syncope, Dyspnea on Exertion , PND, Lower Extremity Edema, Orthopnea, Claudication Gastrointestinal: DENIES: Abdominal pain, Black stools, Bloody stools, Constipation, Diarrhea, Nausea, Vomiting, Difficulty Swallowing, Anorexia Genitourinary: DENIES: Sexual dysfunction, Urinary frequency, Urinary incontinence, Urgency, Hematuria, Dysuria, Nocturia, Penile Discharge, Testicular Pain, Testicular Swelling Musculoskeletal: DENIES: Joint pain, Muscle aches, Stiffness, Joint Swelling, Back pain, Neck pain Integumentary: DENIES: Abnormal pigmentation, Nail changes, Pruritus, Rash Hematologic/lymphatic: DENIES: Bruising, Lymphadenopathy Immunologic/allergic: DENIES: Eczema, Urticaria Neurologic: DENIES: Abnormal gait, Headache, Localized weakness, Paresthesias, Seizures, Speech Problems, Tremor, Poor Balance Psychiatric: DENIES: Anxiety, Confusion, Mood changes, Depression, Hallucinations, Agitation, Suicidal Ideation, Homicidal Ideation, Delusions Past Family Social History Past Medical History COPD Hypertension Past Surgical History History of right pneumothorax long time ago Reported Medications Symbicort 160/4.5 one puff twice a day Lisinopril 10 mg daily Spiriva one puff twice daily Pro-air and metered-dose inhalers Cartia XT 180 mg daily DuoNeb nebs when necessary Allergies: Coded Allergies: Codeine (Verified Adverse Reaction, Mild, HEART SKIPPS BEAT., 06/22/16) Family History Noncontributory Social History Smoker no trying to quit down to 4 cigarettes a Very occasional alcohol use Denies any substance abuse Physical Exam Vital Signs Vital Signs Date Time Temp Pulse Resp B/P Pulse Ox O2 Delivery O2 Flow Rate FiO2 06/22/16 16:20 97.9 97 18 120/70 95 06/22/16 14:15 97.3 85 18 128/65 95 06/22/16 12:16 90 17 121/79 100 Nasal Cannula 2 06/22/16 10:17 87 17 122/71 100 Nasal Cannula 2 06/22/16 08:21 94 17 128/77 98 Nasal Cannula 2 06/22/16 07:18 87 20 110/72 96 Nasal Cannula 2 06/22/16 05:37 100 Nasal Cannula 06/22/16 05:37 99 Nasal Cannula 2 06/22/16 05:31 100 25 98 Nasal Cannula 2 06/22/16 05:31 100 20 148/95 99 06/22/16 05:28 98 Nasal Cannula 2.00 06/22/16 05:21 98.5 95 20 148/95 99 Physical Exam GENERAL: This is a well-nourished, well-developed patient, SKIN: No rashes, ecchymoses or lesions. Cool and dry. HEAD: Atraumatic. Normocephalic. No temporal or scalp tenderness. EYES: Pupils equal round and reactive. Extraocular motions intact. No scleral icterus. No injection or drainage. ENT: Nose without bleeding, purulent drainage or septal hematoma. Throat without erythema, tonsillar hypertrophy or exudate. Uvula midline. Airway patent. NECK: Trachea midline. No JVD or lymphadenopathy. Supple, nontender, no meningeal signs. CARDIOVASCULAR: Regular rate and rhythm without murmurs, gallops, or rubs. RESPIRATORY: Positive few expiratory wheezes occasional rhonchi GASTROINTESTINAL: Abdomen soft, non-tender, nondistended. No hepato-splenomegaly , or palpable masses. No guarding. MUSCULOSKELETAL: Extremities without clubbing, cyanosis, or edema. No joint tenderness, effusion, or edema noted. No calf tenderness. Negative Homans sign bilaterally. NEUROLOGICAL: Awake and alert. Cranial nerves II through XII intact. Motor and sensory grossly within normal limits. Five out of 5 muscle strength in all muscle groups. Normal speech. Laboratory Laboratory Tests Test 06/22/16 06:15 White Blood Count 8.0 Red Blood Count 4.15 Hemoglobin 13.2 Hematocrit 39.8 Mean Corpuscular Volume 95.9 Mean Corpuscular Hemoglobin 31.9 Mean Corpuscular Hemoglobin 33.2 Concent Red Cell Distribution Width 14.6 Platelet Count 287 Mean Platelet Volume 8.7 Neutrophils (%) (Auto) 51.2 Lymphocytes (%) (Auto) 31.3 Monocytes (%) (Auto) 11.1 Eosinophils (%) (Auto) 5.4 Basophils (%) (Auto) 1.0 Neutrophils # (Auto) 4.1 Lymphocytes # (Auto) 2.5 Monocytes # (Auto) 0.9 Eosinophils # (Auto) 0.4 Basophils # (Auto) 0.1 CBC Comment DIFF FINAL Differential Comment Prothrombin Time 10.9 Prothromb Time International 1.0 Ratio Sodium Level 140 Potassium Level 4.4 Chloride Level 106 Carbon Dioxide Level 26.9 Anion Gap 7 Blood Urea Nitrogen 23 Creatinine 1.08 Estimat Glomerular Filtration 70 Rate Random Glucose 114 Calcium Level 8.4 Troponin I LESS THAN 0.02 B-Type Natriuretic Peptide 14 Result Diagram: 06/22/1615 06/22/1615 Imaging Last Impressions Chest X-Ray 06/22/16 0528 Signed Impressions: Service Date/Time: May 05:46 - CONCLUSION: No acute disease. No significant change has occurred. Buck Joyce MD Assessment and Plan Assessment and Plan 60-year-old male presenting with COPD exacerbation ran out of medications Patient received IV Solu-Medrol. Will give every every 8 Restart him on his nebulizers from here with when necessary nebulization History of hypertension patient now states that he has taken himself off lisinopril and Cartia. Will monitor vital signs Complains of nausea will start patient on Zofran 4 mg IV every 6 when necessary Start Zantac 150 twice a day Patient encouraged up and ambulate around the room as tolerated. We'll evaluate patient for need for home oxygen with a walk test in a.m. prior to discharge Discussed Condition With Patient Irais Gould MD Jun 22, 2016 18:24
[2016-06-22] MEDS ORDERED: methylPREDNISolone SOD SUCC 125 MG/2 ML VIAL IV PUSH SCH (18:45)
[2016-06-22] MEDS: TIOTROPIUM BROMIDE 18 MCG INH INH SCH (20:45)
[2016-06-22] MEDS: BUDESONIDE-FORMOTEROL 160/4.5 MCG INHALER INH SCH (20:46)
[2016-06-22] MEDS: FAMOTIDINE 20 MG TAB PO SCH (20:46)
[2016-06-22] MEDS ORDERED: REMOVE OLD NICODERM (NICOTINE) PATCH T-DERMAL SCH (21:00)
[2016-06-23 00:59] VITALS: BP 121/73; PULSE 88; RESP 18; TEMP 98.2; O2SAT 97
[2016-06-23] MEDS: RESP: ALBUTEROL 2.5 MG/IPRATROPIUM 0.5 MG NEB (SCH) NEB ×4 (02:56→15:45)
[2016-06-23] MEDS: methylPREDNISolone SOD SUCC 125 MG/2 ML VIAL IV PUSH SCH ×2 (05:45→14:12)
[2016-06-23 08:12] VITALS: BP 135/77; PULSE 88; RESP 18; TEMP 97.7; O2SAT 96
[2016-06-23] MEDS ORDERED: LISINOPRIL 10 MG TAB PO SCH (09:00)
[2016-06-23] MEDS: FAMOTIDINE 20 MG TAB PO SCH (09:13)
[2016-06-23] MEDS: NICOTINE 7 MG/24 HR PATCH T-DERMAL SCH (09:17)
[2016-06-23] MEDS: BUDESONIDE-FORMOTEROL 160/4.5 MCG INHALER INH SCH (09:18)
[2016-06-23] MEDS: TIOTROPIUM BROMIDE 18 MCG INH INH SCH (09:18)
[2016-06-23 11:17] VITALS: O2SAT 97
[2016-06-23 12:06] VITALS: BP 125/80; PULSE 99; RESP 18; TEMP 97.9; O2SAT 97
--- NOTE | 2016-06-23 15:37 | HHI.PR ---
Subjective Remarks observed patient ambulating around the floor comfortably no chest pains, denies any shortness of breath with Objective Vitals Vital Signs Date Time Temp Pulse Resp B/P Pulse Ox O2 Delivery O2 Flow Rate FiO2 06/23/16 12:06 97.9 99 18 125/80 97 06/23/16 11:17 97 Nasal Cannula 2.00 06/23/16 08:12 97.7 88 18 135/77 96 06/23/16 00:59 98.2 88 18 121/73 97 06/22/16 21:02 97.8 85 18 122/74 97 06/22/16 19:47 93 Nasal Cannula 2.00 06/22/16 16:20 97.9 97 18 120/70 95 I/O 06/22/16 06/22/16 06/22/16 06/23/16 06/23/16 06/23/16 07:00 15:00 23:00 07:00 15:00 23:00 Intake Total 480 ml 1140 ml Output Total 600 ml Balance -120 ml 1140 ml Intake Oral 480 ml 1140 ml Output Urine Total 600 ml # Voids 2 5 # Bowel Movements 0 Result Diagram: 06/22/1615 06/22/16614 Imaging Last Impressions Chest X-Ray 06/22/16527 Signed Impressions: Service Date/Time: May 05:46 - CONCLUSION: No acute disease. No significant change has occurred. Buck Joyce MD Objective Remarks awake and alert, oriented x 3 anicteric sclerae lungs decreased breath sounds, occasional rhonchi regular rhythm abdomen soft, nontender extremities no edema neuro exam non focal A/P Assessment and Plan 60-year-old male ran out of medications/inhalers COPD exacerbation - improved- 02 sats good at room air -home with MDis - short course po Prednisone History of hypertension patient now states that he has taken himself off lisinopril and Cartia. Will monitor vital signs Complains of nausea on admission- resolved, po 100% Start Zantac 150 twice a day Patient encouraged up and ambulate around the room as tolerated. good sats DC home today ff up with PCP activity as tolerated. no heavy exertion- instruct him to pace himself Meds- Prednisone 20 mg bid x 3 days Spriiva 1 puff daily Symbicort MDI 2puffs bid Proventil MDI 2 puffs q 4-6 prn for shortness of breath FF up with PCP on Sunday Irais Gould MD Jun 23, 2016 15:37
[2016-06-23] MEDS ORDERED: ALBUTEROL SULFATE 90 MCG/ACT HFA 8 GM INHALER INH PRN (15:45)
[2016-06-23] MEDS ORDERED: ALBUTEROL SULFATE 90 MCG/ACT HFA 18 GM INHALER INH PRN ×2 (15:48→19:48)
[2016-06-23] MEDS ORDERED: SYMB160A INH (15:56)
[2016-06-23] MEDS ORDERED: VENTAER INH ×2 (15:56→16:21)
[2016-06-23] MEDS ORDERED: SPIRCAP INH (15:56)
[2016-06-23] MEDS ORDERED: PRED20 PO (15:58)
[2016-06-23] MEDS ORDERED: FAMO20TA2 PO (16:13)
== END 2016-06-23 17:09 | disposition home or self-care (01) ==
LOC: NEPE 05:16 → NEDA 08:14 → NEDH 12:20 → NEPGCP 13:29
PROVIDERS: ADMIT Internal Medicine; ATTEND Internal Medicine
DX: J44.1 Chronic obstructive pulmonary disease with (acute) exacerbation (principal); I10 Essential (primary) hypertension; R11.0 Nausea; F17.210 Nicotine dependence, cigarettes, uncomplicated; I25.10 Atherosclerotic heart disease of native coronary artery without angina pectoris; K75.9 Inflammatory liver disease, unspecified; Z87.01 Personal history of pneumonia (recurrent); Z88.5 Allergy status to narcotic agent; Z79.51 Long term (current) use of inhaled steroids
CPT/HCPCS: 71010; 80048; 83880; 84484; 85025; 85610; 93005; 94640; 94664; 99285; G0378; J2405; J2930; J7613

== ENCOUNTER 2016-07-27 18:06 | Inpatient (IN) | payer MEDICARE, OTHER ==
[2016-07-27] VITALS (8 sets, daily range): BP systolic 126–146; BP diastolic 70–89; PULSE 84–115; RESP 21–22; TEMP 97–98.1; O2SAT 92–96
[~2016-07-27] VITALS: Ht 170.2 cm; Wt 78.9 kg
[~2016-07-27 18:06] MED LIST changes: +FAMO20TA2 PO; +PRED20 PO; -PRED5PAK PO; +VENTAER INH; -ZITH250T PO
[2016-07-27] MEDS ORDERED: SODIUM CHLOR 0.9% 1000 ML INJ 1,000 ML IV SCH (18:17)
--- NOTE | 2016-07-27 18:20 | PD ---
HPI Chief Complaint: Respiratory Symptoms Time Seen by Provider: 18:19 Travel History International Travel<30 days: No Contact w/Intl Traveler<30days: No Traveled to known affect area: No History of Present Illness HPI 60-year-old male with a history of hypertension and COPD is brought to the emergency department by EMS for evaluation of shortness of breath for 1 day. Per EMS report when they arrived on scene the patient was noted to have work of breathing, wheezes and oxygen saturation of 87% on room air. He was administered 2 albuterol nebulizers and Solu-Medrol 125 mg IV. He reports improvement of symptoms however is still experiencing shortness of breath and wheezing. The patient states that this is a typical COPD exacerbation for him. He does have a remote history of pneumothorax on one side with reduced lung volume since then. States that this morning he felt slightly short of breath and it is progressively worsened throughout the day. States that he has financial difficulties and is out of his [employer], has been buying his Ventolin inhalers on the street. He states that he was here about a month ago at our hospital for similar symptoms and was discharged with prescriptions for steroids but was unable to get these filled. He states that he has decreased his tobacco use, still smokes 2 cigarettes per day. He states he has had a dry nonproductive cough, slightly worse over the last several days. Denies any fever, chills, nausea, vomiting, chest pain, lightheadedness, dizziness, abdominal pain, swelling of the extremities. Denies any history of heart disease or PR. Does not have a PCP at this time. No other complaints. PFSH Past Medical History Arthritis: No Asthma: Yes Autoimmune Disease: No Blood Disorders: No Anxiety: No Depression: No Heart Rhythm Problems: Yes (skip beat, pt on Diltiazem) Cancer: No Cardiovascular Problems: Yes High Cholesterol: No Chemotherapy: No Chest Pain: No Congestive Heart Failure: No COPD: Yes Cerebrovascular Accident: No Coronary Artery Disease: Yes Diabetes: No Diminished Hearing: No Endocrine: No Gastrointestinal Disorders: Yes (NUMEROUS GI SERIES, ENDOSCOPY) GERD: Yes Glaucoma: No Genitourinary: No Headaches: No Hepatitis: Yes (HEP A IN HIGH SCHOOL) Hiatal Hernia: No Hypertension: Yes Immune Disorder: No Kidney Stones: No Musculoskeletal: No Neurologic: No Psychiatric: No Reproductive: No Respiratory: Yes Immunizations Current: No Migraines: No Myocardial Infarction: No Pneumonia: Yes Radiation Therapy: No Renal Failure: No Seizures: No Sickle Cell Disease: No Sleep Apnea: No Thyroid Disease: No Ulcer: No Past Surgical History Abdominal Surgery: Yes ( UPPER GI) AICD: No Appendectomy: No Arteriovenous Shunt: No Cardiac Surgery: No Cholecystectomy: No Ear Surgery: No Endocrine Surgery: No Eye Surgery: No Genitourinary Surgery: No Gynecologic Surgery: No Insulin Pump: No Joint Replacement: No Oral Surgery: No Pacemaker: No Thoracic Surgery: No Other Surgery: Yes Social History Alcohol Use: No Tobacco Use: Yes (1PPW) Substance Use: No (DENIES) Allergies-Medications (Allergen,Severity, Reaction): Coded Allergies: Codeine (Verified Adverse Reaction, Mild, HEART SKIPPS BEAT., 06/22/16) Reported Meds & Prescriptions Reported Meds & Active Scripts Active Ventolin Hfa 18 GM Inh (Albuterol Sulfate) 90 Mcg/Act Aer 2 Puff INH Q4H PRN Symbicort Inh (Budesonide/Formoterol Fumarate) 160-4.5 Mcg/Act Aero 2 Puff INH Q12HR 30 Days Review of Systems Except as stated in HPI: all other systems reviewed are Neg Physical Exam Narrative GENERAL: Well-nourished and well-developed pleasant male patient in no acute distress. SKIN: Warm and dry. HEAD: Normocephalic and atraumatic. EYES: No injection, drainage, or hyphema noted. PERRLA. EOMI. ENT: No nasal drainage noted. Oropharynx is clear. NECK: Supple and the trachea is midline. CARDIOVASCULAR: Regular rate and rhythm. RESPIRATORY: Mild work of breathing. Wheezing bilaterally and throughout all lung thomas. No accessory muscle use, rhonchi, or crackles. GASTROINTESTINAL: Abdomen is soft, non-tender, and nondistended. MUSCULOSKELETAL: No obvious deformities, swelling, cyanosis, or ecchymosis is present throughout the upper and lower extremities. Patient has full range of motion without any signs of neurovascular compromise. NEUROLOGICAL: Awake, alert, and oriented. Normal speech and gait. Cranial nerves are grossly intact. Data Data Last Documented VS Vital Signs Date Time Temp Pulse Resp B/P Pulse Ox O2 Delivery O2 Flow Rate FiO2 07/27/16 18:59 115 22 126/70 92 Room Air 07/27/16 18:13 98.1 Orders Complete Blood Count With Diff (07/27/16 18:17) Basic Metabolic Panel (Bmp) (07/27/16 18:17) Influenzae A/B Antigen (07/27/16 18:17) Iv Access Insert/Monitor (07/27/16 18:17) Electrocardiogram (07/27/16 18:17) Ecg Monitoring (07/27/16 18:17) Oximetry (07/27/16 18:17) Oxygen Administration (07/27/16 18:17) Chest, Single Ap (07/27/16 18:17) Sodium Chloride 0.9% Flush (Ns Flush) (07/27/16 18:30) Albuterol-Ipratropium Neb (Duoneb Neb) (07/27/16 18:30) Sodium Chlor 0.9% 1000 Ml Inj (Ns 1000 M (07/27/16 18:17) Ceftriaxone Inj (Rocephin Inj) (07/27/16 19:30) Azithromycin Inj (Zithromax Inj) (07/27/16 19:30) Admit Order (Ed Use Only) (07/27/16 19:19) Labs Laboratory Tests Test 07/27/16 18:25 White Blood Count 7.6 TH/MM3 Red Blood Count 4.03 MIL/MM3 Hemoglobin 12.8 GM/DL Hematocrit 38.9 % Mean Corpuscular Volume 96.4 FL Mean Corpuscular Hemoglobin 31.8 PG Mean Corpuscular Hemoglobin 32.9 % Concent Red Cell Distribution Width 14.3 % Platelet Count 377 TH/MM3 Mean Platelet Volume 7.8 FL Neutrophils (%) (Auto) 51.6 % Lymphocytes (%) (Auto) 32.9 % Monocytes (%) (Auto) 9.5 % Eosinophils (%) (Auto) 5.1 % Basophils (%) (Auto) 0.9 % Neutrophils # (Auto) 3.9 TH/MM3 Lymphocytes # (Auto) 2.5 TH/MM3 Monocytes # (Auto) 0.7 TH/MM3 Eosinophils # (Auto) 0.4 TH/MM3 Basophils # (Auto) 0.1 TH/MM3 CBC Comment DIFF FINAL Differential Comment Sodium Level 136 MEQ/L Potassium Level 4.1 MEQ/L Chloride Level 99 MEQ/L Carbon Dioxide Level 30.7 MEQ/L Anion Gap 6 MEQ/L Blood Urea Nitrogen 10 MG/DL Creatinine 0.97 MG/DL Estimat Glomerular Filtration 79 ML/MIN Rate Random Glucose 114 MG/DL Calcium Level 9.5 MG/DL [facility] Medical Decision Making Medical Screen Exam Complete: Yes Emergency Medical Condition: Yes Differential Diagnosis COPD exacerbation versus bronchitis versus pneumonia versus pleurisy versus pleural effusion Narrative Course 60-year-old male is brought to the emergency department by EMS for evaluation of shortness of breath and wheezing for one day. Patient is afebrile, vital signs are stable. Patient has wheezing throughout on exam, he is not in any acute distress but does have some mild work of breathing. IV access is obtained , labs were drawn and sent. Patient is placed on cardiac telemetry and pulse oximetry monitoring. Chest x-rays and orders pending. EKG shows sinus tachycardia with ventricular rate of 103 bpm, no acute ST elevations or depressions. Patient was given 2 albuterol treatments and Solu-Medrol 125 mg IV by EMS. We'll give the patient 2 more DuoNeb treatments here in the ED with IV fluids. CBC shows mild anemia with hemoglobin of 12.8, hematocrit 38.9, otherwise unremarkable. BMP is unremarkable. Influenza swab is negative. Chest x-ray shows left apical infiltrate with hyperinflation suggesting COPD. Patient is reassessed after receiving more nebulizer treatments and reports he has had some improvement but he is still short of breath. On auscultation his wheezing has improved however he still has wheezes throughout. Patient is administered IV Zithromax and Rocephin and will be admitted to medicine service for COPD exacerbation with pneumonia. Physician Communication Physician Communication I spoke with Dr. Gunter [facility] who agrees to admit the patient to her service. Diagnosis Primary Impression: COPD exacerbation Additional Impression: Pneumonia Qualified Code: J18.1 - Pneumonia of left upper lobe due to infectious organism Admitting Information Admitting Physician Requests: Admit Diya Silvestre Jul 27, 2016 18:19
[2016-07-27] MEDS: RESP: ALBUTEROL 2.5 MG/IPRATROPIUM 0.5 MG NEB (SCH) INH (18:27)
[2016-07-27] MEDS ORDERED: SODIUM CHLORIDE 0.9% FLUSH 10 ML FLUSH IVF PRN (18:30)
[2016-07-27 18:34] LABS: AUTOMATED NEUTROPHIL # 3.9 TH/MM3 (1.8-7.7); BASOPHIL # 0.1 TH/MM3 (0-0.2); BASOPHIL % 0.9 % (0.0-2.0); EOSINOPHIL # 0.4 TH/MM3 (0-0.4); EOSINOPHIL % 5.1 % (0.0-4.0); HEMATOCRIT 38.9 % (39.0-51.0); HEMO FLAGS DIFF FINAL; LYMPH % 32.9 % (9.0-44.0); LYMPHOCYTE # 2.5 TH/MM3 (1.0-4.8); MEAN CELL VOLUME 96.4 FL (80.0-100.0); MEAN CORPUSCULAR HEMOGLOBIN 31.8 PG (27.0-34.0); MEAN CORPUSCULAR HGB CONC 32.9 % (32.0-36.0); MONO % 9.5 % (0.0-8.0); NEUT % 51.6 % (16.0-70.0); PLATELET COUNT 377 TH/MM3 (150-450); RED BLOOD COUNT 4.03 MIL/MM3 (4.50-5.90); RED CELL DISTRIBUTION WIDTH 14.3 % (11.6-17.2); WHITE BLOOD COUNT 7.6 TH/MM3 (4.0-11.0)
--- NOTE | 2016-07-27 18:57 | RADRPT ---
EXAM DATE/TIME: 07/27/2016 18:41 [place] COMPARISON: CHEST SINGLE AP, June 22, 2016, 5:46. INDICATIONS : Shortness of breath. MEDICAL HISTORY : Chronic obstructive pulmonary disease. Hypertension Diabetes mellitus type II. Smoker. Asthma. SURGICAL HISTORY : None. ENCOUNTER: Initial ACUITY: 1 day PAIN SCORE: 3/10 LOCATION: Bilateral chest FINDINGS: A single frontal view the chest shows a patchy parenchymal opacity within the left lung apex. The sunita gs are hyperinflated. No effusions. Heart is normal in size. Bony structures are unremarkable. CONCLUSION: Left apical infiltrate. Hyperinflation suggesting COPD. Matthew Lawler Jr., MD on July 27, 2016 at 18:54 Board Certified Radiologist. This report was verified electronically.
[2016-07-27 19:13] LABS: BICARBONATE 30.7 MEQ/L (21.0-32.0); POTASSIUM 4.1 MEQ/L (3.5-5.1)
[2016-07-27] MEDS ORDERED: cefTRIAXone INJ 1,000 MG in SODIUM CHLORIDE 0.9% INJ 100 ML IV ONE (19:30)
[2016-07-27] MEDS ORDERED: AZITHROMYCIN INJ 500 MG in SODIUM CHLOR 0.9% 250 ML INJ 250 ML IV ONE (19:30)
[2016-07-27] MEDS ORDERED: SODIUM CHLORIDE 0.9% FLUSH 10 ML FLUSH IV FLUSH PRN (19:30)
[2016-07-27] MEDS ORDERED: NALOXONE HCL 0.4 MG/ML AMP IV PRN (19:30)
[2016-07-27] MEDS: SODIUM CHLORIDE 0.9% FLUSH 10 ML FLUSH IV FLUSH SCH (21:00)
[2016-07-27] MEDS: RESP: ALBUTEROL 2.5 MG/IPRATROPIUM 0.5 MG NEB (SCH) NEB (22:28)
--- NOTE | 2016-07-27 23:23 | HHI.HP ---
[facility] Primary Care Physician No Primary Care Physician Admission Diagnosis COPD Exacerbation, Pneumonia Diagnoses: Travel History International Travel<30 Days: No Contact w/Intl Traveler <30 Da: No Traveled to Known Affected Are: No History of Present Illness dry cough sob run out of albuterol worsened today no ansue nomiting headaches no blood no buring Past Family Social History Past Medical History used to be on meds for htn- now no longer copd hepatitis as a kid but went away esophageal strictures and needed dilation Past Surgical History collapsed lung esophageal strictures dilation Allergies: Coded Allergies: Codeine (Verified Adverse Reaction, Mild, HEART SKIPPS BEAT., 06/22/16) Family History dad worked in [employer] plant mom had lung cancer- was never a smoker dad had colon cancer Social History used to smoke very heavily, now 2 cigarrettes a day social drinker no drugs has a roommate no longer driving Physical Exam Vital Signs Vital Signs Date Time Temp Pulse Resp B/P Pulse Ox O2 Delivery O2 Flow Rate FiO2 07/27/16 22:29 94 21 07/27/16 21:30 97.0 91 21 145/89 95 07/27/16 21:15 89 20 146/80 92 07/27/16 20:12 84 22 137/87 92 Room Air 07/27/16 19:48 93 07/27/16 18:59 115 22 126/70 92 Room Air 07/27/16 18:23 94 Room Air 07/27/16 18:23 94 Room Air 07/27/16 18:18 24 94 Room Air 07/27/16 18:13 98.1 91 22 96 Physical Exam GENERAL: This is a well-nourished, well-developed patient, in no apparent distress. SKIN: No rashes, ecchymoses or lesions. Cool and dry. HEAD: Atraumatic. Normocephalic. No temporal or scalp tenderness. EYES: Pupils equal round and reactive. Extraocular motions intact. No scleral icterus. No injection or drainage. ENT: Nose without bleeding, purulent drainage or septal hematoma. Throat without erythema, tonsillar hypertrophy or exudate. Uvula midline. Airway patent. NECK: Trachea midline. No JVD or lymphadenopathy. Supple, nontender, no meningeal signs. CARDIOVASCULAR: Regular rate and rhythm without murmurs, gallops, or rubs. RESPIRATORY: Clear to auscultation. Breath sounds equal bilaterally. No wheezes , rales, or rhonchi. GASTROINTESTINAL: Abdomen soft, non-tender, nondistended. No hepato-splenomegaly , or palpable masses. No guarding. MUSCULOSKELETAL: Extremities without clubbing, cyanosis, or edema. No joint tenderness, effusion, or edema noted. No calf tenderness. Negative Homans sign bilaterally. NEUROLOGICAL: Awake and alert. Cranial nerves II through XII intact. Motor and sensory grossly within normal limits. Five out of 5 muscle strength in all muscle groups. Normal speech. Laboratory Laboratory Tests Test 07/27/16 18:25 White Blood Count 7.6 Red Blood Count 4.03 Hemoglobin 12.8 Hematocrit 38.9 Mean Corpuscular Volume 96.4 Mean Corpuscular Hemoglobin 31.8 Mean Corpuscular Hemoglobin 32.9 Concent Red Cell Distribution Width 14.3 Platelet Count 377 Mean Platelet Volume 7.8 Neutrophils (%) (Auto) 51.6 Lymphocytes (%) (Auto) 32.9 Monocytes (%) (Auto) 9.5 Eosinophils (%) (Auto) 5.1 Basophils (%) (Auto) 0.9 Neutrophils # (Auto) 3.9 Lymphocytes # (Auto) 2.5 Monocytes # (Auto) 0.7 Eosinophils # (Auto) 0.4 Basophils # (Auto) 0.1 CBC Comment DIFF FINAL Differential Comment Sodium Level 136 Potassium Level 4.1 Chloride Level 99 Carbon Dioxide Level 30.7 Anion Gap 6 Blood Urea Nitrogen 10 Creatinine 0.97 Estimat Glomerular Filtration 79 Rate Random Glucose 114 Calcium Level 9.5 Date/Time Procedure Status Source Growth 07/27/16 18:48 Influenza Types A,B Antigen (MATT) - Final Complete Nasal Washing NEGATIVE FOR FLU A AND B ANTIGEN.... Result Diagram: 07/27/16182407/27/161824 Physician Certification Order for Inpatient Services The services are ordered in accordance with Medicare regulations or non- Medicare payer requirements, as applicable. In the case of services not specified as inpatient-only, they are appropriately provided as inpatient services in accordance with the 2-midnight benchmark. days is the estimated time the patient will need to remain in the hospital, assuming treatment plan goals are met and no additional complications. Sha Gunter MD Jul 27, 2016 23:23
[2016-07-27] MEDS: ACETAMINOPHEN 325 MG TAB PO PRN (23:49)
[2016-07-27] MEDS: methylPREDNISolone SOD SUCC 40 MG/1 ML VIAL IV PUSH SCH (23:50)
[2016-07-28] VITALS (13 sets, daily range): BP systolic 126–161; BP diastolic 80–90; PULSE 20–100; RESP 17–24; TEMP 96.1–98.7; O2SAT 93–98
[2016-07-28] MEDS: RESP: ALBUTEROL 2.5 MG/IPRATROPIUM 0.5 MG NEB (PRN) NEB ×2 (00:36→11:49)
[2016-07-28] MEDS: RESP: ALBUTEROL 2.5 MG/IPRATROPIUM 0.5 MG NEB (SCH) NEB ×4 (04:23→22:10)
[2016-07-28] MEDS: methylPREDNISolone SOD SUCC 40 MG/1 ML VIAL IV PUSH SCH ×4 (05:41→23:05)
[2016-07-28] MEDS: PANTOPRAZOLE SOD 40 MG DELAYED RELEASE TAB PO SCH (08:13)
[2016-07-28] MEDS: AZITHROMYCIN 250 MG TAB PO SCH (08:13)
[2016-07-28] MEDS: SODIUM CHLORIDE 0.9% FLUSH 10 ML FLUSH IV FLUSH SCH ×2 (09:00→20:29)
[2016-07-28 09:10] LABS: AUTOMATED NEUTROPHIL # 5.4 TH/MM3 (1.8-7.7); BASOPHIL % 0.2 % (0.0-2.0); HEMATOCRIT 36.6 % (39.0-51.0); HEMO FLAGS DIFF FINAL; LYMPH % 7.3 % (9.0-44.0); LYMPHOCYTE # 0.4 TH/MM3 (1.0-4.8); MEAN CELL VOLUME 95.1 FL (80.0-100.0); MEAN CORPUSCULAR HEMOGLOBIN 32.1 PG (27.0-34.0); MEAN CORPUSCULAR HGB CONC 33.7 % (32.0-36.0); NEUT % 91.5 % (16.0-70.0); PLATELET COUNT 369 TH/MM3 (150-450); RED BLOOD COUNT 3.85 MIL/MM3 (4.50-5.90); RED CELL DISTRIBUTION WIDTH 14.1 % (11.6-17.2); WHITE BLOOD COUNT 5.9 TH/MM3 (4.0-11.0)
[2016-07-28] MEDS: cefTRIAXone INJ 1,000 MG in SODIUM CHLORIDE 0.9% INJ 100 ML IV SCH ×2 (09:25→20:29)
[2016-07-28 09:32] LABS: BICARBONATE 26.8 MEQ/L (21.0-32.0)
[2016-07-28] MEDS: ACETAMINOPHEN 325 MG TAB PO PRN (11:33)
--- NOTE | 2016-07-28 12:18 | EKG ---
Date Performed: 07/27/2016 Time Performed: 18:29:29 PTAGE: 60 years EKG: SINUS TACHYCARDIA ABNORMAL RHYTHM ECG Compared to prior tracing no significant change PREVIOUS TRACING : 06/22/2016 06.39 DOCTOR: Aron Wen Interpretating Date/Time 07/28/2016 12:17:14
--- NOTE | 2016-07-28 14:29 | HHI.PR ---
Subjective Remarks Pt being followed for community acquired pneumonia and COPD exacerbation. No acute issues reported over night. Pt requested sleeping agent. Discussed at length why such medication might not be prudent given oxygenation issues. Pt agreed with assessment. Pt endorsed shortness of breath when returning from bathroom. Pt also endorsed cough (non-productive). He denied fever, nausea, vomiting, diarrhea, chest pain, bloody urine or stool. RN at bedside reported no new issues. Objective Vitals Vital Signs Date Time Temp Pulse Resp B/P Pulse Ox O2 Delivery O2 Flow Rate FiO2 07/28/16 12:00 97.0 100 20 156/90 97 07/28/16 08:25 98 21 07/28/16 08:00 96.7 83 20 126/84 98 07/28/16 04:25 93 21 07/28/16 04:00 97.9 20 18 156/80 07/28/16 02:55 69 07/28/16 00:37 94 21 07/28/16 00:00 98.7 85 24 161/80 95 07/27/16 22:29 94 21 07/27/16 21:30 97.0 91 21 145/89 95 07/27/16 21:15 89 20 146/80 92 07/27/16 20:12 84 22 137/87 92 Room Air 07/27/16 19:48 93 07/27/16 18:59 115 22 126/70 92 Room Air 07/27/16 18:23 94 Room Air 07/27/16 18:23 94 Room Air 07/27/16 18:18 24 94 Room Air 07/27/16 18:13 98.1 91 22 96 Result Diagram: 07/28/16 0750 07/28/16 0750 Imaging Last Impressions Chest X-Ray 07/27/161816 Signed Impressions: Service Date/Time: July 18:41 - CONCLUSION: Left apical infiltrate. Hyperinflation suggesting COPD. Matthew aLwler Jr., MD Objective Remarks GENERAL: Pt encountered sitting upright on his bed, in NAD. No nasal cannula worn. SKIN: Warm and dry. HEAD: Normocephalic. EYES: No scleral icterus. No injection or drainage. NECK: Supple, trachea midline. No lymphadenopathy. CARDIOVASCULAR: Regular rate and rhythm without murmurs, gallops, or rubs. RESPIRATORY: Bilaterally, expiratory wheezing noted, left greater than right. No accessory muscle use. GASTROINTESTINAL: Abdomen soft, non-tender, nondistended. MUSCULOSKELETAL: No cyanosis, or edema. PSYCHIATRIC: Pt A&Ox3, pleasant and cooperative. No overt signs of anxiety and/ or depression. Medications and IVs Current Medications Medications (Trade) Dose Ordered Sig/Adam Route Start Time Stop Time Status Last Admin (NS Flush) 2 ml UNSCH PRN IV FLUSH 07/27/16 19:30 (NS Flush) 2 ml BID IV FLUSH 07/27/16 21:00 07/28/16 09:00 (Narcan Inj) 0.4 mg UNSCH PRN IV 07/27/16 19:30 (SoluMEDROL INJ) 40 mg Q6HR IV PUSH 07/28/16 00:00 07/28/16 11:32 Pantoprazole Sodium 40 mg 40 mg DAILY PO 07/28/16 09:00 07/28/16 08:13 (Rocephin Inj/NS Inj) 100 ml @ 200 mls/hr Q12H IV 07/28/16 08:00 07/28/16 09:25 (Zithromax) 500 mg DAILY PO 07/28/16 09:00 07/28/16 08:13 (Tylenol) 650 mg Q4H PRN PO 07/27/16 23:15 07/28/16 11:33 Urinary Catheter: No Vascular Central Line Catheter: No A/P Problem List: (1) Pneumonia ICD Code: J18.9 Status: Acute (2) COPD exacerbation ICD Code: J44.1 Status: Acute (3) Hyperglycemia ICD Code: R73.9 Status: Acute Assessment and Plan Mr. Flood is 60 yo, with history of COPD, currently smoking two cigars a day. Community acquired Pneumonia COPD exacerbation -Ceftriaxone 2 G IV daily and Azithromycin 500 mg PO daily. -Duonebs scheduled q 4H and available PRN for wheezing q 2 H. -Continue Solumedrol 40 mg q 6H -Telemetry -Incentive spirometry -Physical therapy consult prevent deconditioning. -Wean from supplemental oxygen. Hyperglycemia -Pt does not have history of diabetes. Suspect elevations are due to steroids. If elevation continues may consider insulin. -Monitor labs Diet Healthy heart Discussed case with Pt, RN, and Dr. Carrion. Discharge Planning Ongoing. Problem Qualifiers (1) Pneumonia: Qualified Code: J18.1 - Pneumonia of left upper lobe due to infectious organism Diony Echevarria Jr. Jul 28, 2016 14:29
[2016-07-28] MEDS ORDERED: REMOVE OLD PATCH T-DERMAL SCH ×2 (15:30→21:00)
[2016-07-28] MEDS: NICOTINE 7 MG/24 HR PATCH T-DERMAL SCH (15:59)
[2016-07-29 00:39] VITALS: BP 130/76; PULSE 92; RESP 17; TEMP 97.2; O2SAT 96
[2016-07-29] MEDS: RESP: ALBUTEROL 2.5 MG/IPRATROPIUM 0.5 MG NEB (SCH) NEB ×2 (04:09→09:29)
[2016-07-29 04:11] VITALS: O2SAT 95
[2016-07-29 05:19] VITALS: BP 138/82; PULSE 90; RESP 17; TEMP 97.4; O2SAT 97
[2016-07-29] MEDS: methylPREDNISolone SOD SUCC 40 MG/1 ML VIAL IV PUSH SCH ×2 (05:19→12:04)
[2016-07-29 08:00] VITALS: BP 134/91; PULSE 86; RESP 20; TEMP 96; O2SAT 95
[2016-07-29 08:50] LABS: AUTOMATED NEUTROPHIL # 16.4 TH/MM3 (1.8-7.7); BASOPHIL # 0.1 TH/MM3 (0-0.2); BASOPHIL % 0.4 % (0.0-2.0); HEMO FLAGS DIFF FINAL; LYMPH % 4.5 % (9.0-44.0); LYMPHOCYTE # 0.8 TH/MM3 (1.0-4.8); MEAN CELL VOLUME 96.9 FL (80.0-100.0); MEAN CORPUSCULAR HEMOGLOBIN 31.3 PG (27.0-34.0); MEAN CORPUSCULAR HGB CONC 32.3 % (32.0-36.0); MONO % 2.2 % (0.0-8.0); NEUT % 92.9 % (16.0-70.0); PLATELET COUNT 371 TH/MM3 (150-450); RED BLOOD COUNT 4.03 MIL/MM3 (4.50-5.90); RED CELL DISTRIBUTION WIDTH 14.4 % (11.6-17.2); WHITE BLOOD COUNT 17.7 TH/MM3 (4.0-11.0)
[2016-07-29] MEDS: cefTRIAXone INJ 1,000 MG in SODIUM CHLORIDE 0.9% INJ 100 ML IV SCH (08:59)
[2016-07-29] MEDS: AZITHROMYCIN 250 MG TAB PO SCH (09:00)
[2016-07-29] MEDS: SODIUM CHLORIDE 0.9% FLUSH 10 ML FLUSH IV FLUSH SCH (09:00)
[2016-07-29] MEDS: PANTOPRAZOLE SOD 40 MG DELAYED RELEASE TAB PO SCH (09:00)
[2016-07-29] MEDS: NICOTINE 7 MG/24 HR PATCH T-DERMAL SCH (09:00)
[2016-07-29 09:07] LABS: POTASSIUM 4.1 MEQ/L (3.5-5.1)
[2016-07-29 09:40] VITALS: PULSE 80
[2016-07-29] MEDS ORDERED: VENTAER INH (11:34)
[2016-07-29] MEDS ORDERED: SYMB160A INH (11:34)
[2016-07-29] MEDS ORDERED: CEPH500C PO (11:34)
[2016-07-29] MEDS ORDERED: AZIT250T3 PO (11:34)
[2016-07-29] MEDS ORDERED: levaquin PO (11:35)
[2016-07-29 12:00] VITALS: BP 151/86; PULSE 82; RESP 20; TEMP 97; O2SAT 96
--- NOTE | 2016-07-29 13:11 | HHI.PR ---
Subjective Remarks Follow-up for shortness of breath Shortness of breath a lot better, on room air, still with mild wheezing Objective Vitals Vital Signs Date Time Temp Pulse Resp B/P Pulse Ox O2 Delivery O2 Flow Rate FiO2 07/29/16 12:00 97.0 82 20 151/86 96 07/29/16 08:00 96.0 86 20 134/91 95 07/29/16 05:19 97.4 90 17 138/82 97 07/29/16 04:11 95 21 07/29/16 00:39 97.2 92 17 130/76 96 07/28/16 22:10 95 21 07/28/16 21:15 96.9 80 17 151/81 96 07/28/16 20:00 96 07/28/16 17:59 73 07/28/16 16:15 96.1 84 20 161/82 97 I/O 07/28/16 07/28/16 07/28/16 07/29/16 07/29/16 07/29/16 07:00 15:00 23:00 07:00 15:00 23:00 Intake Total 240 ml 120 ml Balance 240 ml 120 ml Intake Oral 240 ml 120 ml # Voids 3 2 2 # Bowel Movements 1 Result Diagram: 07/29/16 0750 07/29/16 0750 Procedures GENERAL: Pt encountered sitting upright on his bed, in NAD. No nasal cannula worn. SKIN: Warm and dry. HEAD: Normocephalic. EYES: No scleral icterus. No injection or drainage. NECK: Supple, trachea midline. No lymphadenopathy. CARDIOVASCULAR: Regular rate and rhythm without murmurs, gallops, or rubs. RESPIRATORY: Occasional wheezing, no crackles. GASTROINTESTINAL: Abdomen soft, non-tender, nondistended. MUSCULOSKELETAL: No cyanosis, or edema. PSYCHIATRIC: Pt A&Ox3, pleasant and cooperative. No overt signs of anxiety and/ or depression. A/P Problem List: (1) Pneumonia ICD Code: J18.9 Status: Acute (2) COPD exacerbation ICD Code: J44.1 Status: Acute (3) Hyperglycemia ICD Code: R73.9 Status: Acute Assessment and Plan Mr. Flood is 60 yo, with history of COPD, currently smoking two cigars a day. Community acquired Pneumonia COPD exacerbation - Improved, on room air, continue bronchodilators, discharge on prednisone quick taper and Levaquin to finish 1 week of treatment. Continue Symbicort as outpatient. Hyperglycemia -Pt does not have history of diabetes. Diet Healthy heart Problem Qualifiers (1) Pneumonia: Qualified Code: J18.1 - Pneumonia of left upper lobe due to infectious organism Felisha Carrion MD Jul 29, 2016 13:11
[2016-07-29] MEDS ORDERED: PRED20 PO (13:13)
--- NOTE | 2016-07-29 13:17 | HHI.DS ---
Discharge Summary Admission Date Jul 27, 2016 at 19:21 Discharge Date: Jul 29, 2016 Admitting Diagnosis COPD Exacerbation, Pneumonia (1) Pneumonia ICD Code: J18.9 Diagnosis: Principal (2) COPD exacerbation ICD Code: J44.1 Diagnosis: Principal (3) Hyperglycemia ICD Code: R73.9 Procedures none Brief History - From Admission dry cough sob run out of albuterol worsened today no ansue nomiting headaches no blood no buring CBC/BMP: 07/29/16 0750 07/29/16 0750 Significant Findings Laboratory Tests Test 07/27/16 07/28/16 07/29/16 18:25 07:50 07:50 Red Blood Count 4.03 MIL/MM3 3.85 MIL/MM3 4.03 MIL/MM3 (4.50-5.90) (4.50-5.90) (4.50-5.90) Hemoglobin 12.8 GM/DL 12.3 GM/DL 12.6 GM/DL (13.0-17.0) (13.0-17.0) (13.0-17.0) Hematocrit 38.9 % 36.6 % (39.0-51.0) (39.0-51.0) Monocytes (%) (Auto) 9.5 % (0.0-8.0) Eosinophils (%) (Auto) 5.1 % (0.0-4.0) Estimat Glomerular Filtration 79 ML/MIN (>89) 65 ML/MIN (>89) 77 ML/MIN (>89) Rate Random Glucose 114 MG/DL 178 MG/DL 149 MG/DL (74-106) (74-106) (74-106) Neutrophils (%) (Auto) 91.5 % 92.9 % (16.0-70.0) (16.0-70.0) Lymphocytes (%) (Auto) 7.3 % 4.5 % (9.0-44.0) (9.0-44.0) Lymphocytes # (Auto) 0.4 TH/MM3 0.8 TH/MM3 (1.0-4.8) (1.0-4.8) White Blood Count 17.7 TH/MM3 (4.0-11.0) Neutrophils # (Auto) 16.4 TH/MM3 (1.8-7.7) Imaging Last Impressions Chest X-Ray 07/27/16 1266 Signed Impressions: Service Date/Time: , July 27, 2016 18:41 - CONCLUSION: Left apical infiltrate. Hyperinflation suggesting COPD. Matthew Lawler Jr., MD PE at Discharge Not in distress, well-nourished, looks stated age PERRL, pink conjunctiva without injection, anicteric Nose without bleeding, airway patent, oropharynx clear Supple neck, no masses or thyromegaly, trachea midline Normal rate and regular rhythm, no murmurs gallops or rubs appreciated. Occasional wheezing, no use of accessory muscles Normal bowel sounds, soft, non-tender, nondistended, no guarding. Extremities without clubbing, cyanosis, or edema. No rash of generalized distribution. Skin is warm and dry. AAO x3, no cranial nerve deficits, moves all 4 extremities, no focal neurologic deficits Normal mood, appropriate affect Hospital Course Mr. Flood is 60 yo, with history of COPD, currently smoking two cigars a day presented with shortness of breath. Upon admission, chest x-ray showed left upper lobe infiltrate, patient was started azithromycin and ceftriaxone. Patient also was found to have COPD exacerbation, started on bronchodilators, oxygen support and steroids. After 2 days, patient improved significantly. Patient will be discharged with Levaquin, quick taper of prednisone, Symbicort and bronchodilators. Pt Condition on Discharge: Good Discharge Disposition: Discharge Home Discharge Time: > 30 minutes Discharge Instructions DIET: Follow Instructions for: Heart Healthy Diet Activities you can perform: Regular-No Restrictions Follow up Referrals: PCP Follow-up - 1 Week New Medications: Prednisone (Prednisone) 20 Mg Tab 20 MG PO BID Take 3 tablets daily x 3 days, then 2 tablets x 3 days then 1 tab x 3 days then stop. COPD #20 Ref 0 TAB ([levaquin]) 750 MG PO DAILY pna #6 Continued Medications: Albuterol 18 GM Inh (Ventolin Hfa 18 GM Inh) 90 Mcg/Act Aer 2 PUFF INH Q4H PRN SHORTNESS OF BREATH #1 Ref 1 INHALER (This prescription has been renewed) Budesonide-Formoterol Inh (Symbicort Inh) 160-4.5 Mcg/Act Aero 2 PUFF INH Q12HR COPD Days 30 INHALER (This prescription has been renewed) Felisha Carrion MD Jul 29, 2016 13:17
== END 2016-07-29 13:08 | disposition home or self-care (01) | DRG 190 ==
LOC: NEPE 18:06 → NEDA 19:21 → N05B 21:26
PROVIDERS: ADMIT Hospitalist; ATTEND Hospitalist
DX: J44.0 Chronic obstructive pulmonary disease with (acute) lower respiratory infection (principal); J18.9 Pneumonia, unspecified organism; J44.1 Chronic obstructive pulmonary disease with (acute) exacerbation; D64.9 Anemia, unspecified; I10 Essential (primary) hypertension; I25.10 Atherosclerotic heart disease of native coronary artery without angina pectoris; J45.909 Unspecified asthma, uncomplicated; K21.9 Gastro-esophageal reflux disease without esophagitis; F17.210 Nicotine dependence, cigarettes, uncomplicated; R73.9 Hyperglycemia, unspecified
CPT/HCPCS: 71010; 80048; 85025; 87804; 93005; 94150; 94640; 94664; 99285; J0456; J0696; J2920; J7030; J7050

== ENCOUNTER 2016-08-28 08:17 | Inpatient (IN) | payer MEDICARE ==
[~2016-08-28] VITALS: Ht 170.2 cm; Wt 77.7 kg
[2016-08-28] VITALS (13 sets, daily range): BP systolic 120–200; BP diastolic 67–122; PULSE 82–124; RESP 18–29; TEMP 97.5–98.3; O2SAT 91–99
[~2016-08-28 08:17] MED LIST changes: -ALBU1.25 NEB; -ALBUAER3 INH; -CART180C PO; -FAMO20TA2 PO; -LISI10TA3 PO; -NEBUKIT5; -NEBULIZER1 MI1; -SPIRCAP INH; +levaquin PO
[2016-08-28] MEDS ORDERED: RESP: ALBUTEROL 2.5 MG/IPRATROPIUM 0.5 MG NEB (SCH) ONE (08:24)
--- NOTE | 2016-08-28 08:25 | PD ---
HPI Chief Complaint: Respiratory Symptoms Time Seen by Provider: 08:25 Travel History International Travel<30 days: No Contact w/Intl Traveler<30days: No Traveled to known affect area: No History of Present Illness HPI 60-year-old male came to the emergency room with history of dyspnea. He was brought in emergently. Oxygen saturation was 91%. Patient seemed to be in moderate to significant distress. He says he has history of COPD and feels chest tightness but no pain per se. His symptoms started 2 days ago and has progressively been worsening. Patient is a smoker. He has history of hypertension but has stopped taking his blood pressure medications. His blood pressure was 189 systolic upon arrival. No history of fever or chills. He does not require oxygen at home. [facility] Past Medical History Narrative Medical List of his past medical, surgical, social and family history is reviewed from the nursing note. Arthritis: No Asthma: Yes Autoimmune Disease: No Blood Disorders: No Anxiety: No Depression: No Heart Rhythm Problems: Yes (skip beat, pt on Diltiazem) Cancer: No Cardiovascular Problems: Yes High Cholesterol: No Chemotherapy: No Chest Pain: No Congestive Heart Failure: No COPD: Yes Cerebrovascular Accident: No Coronary Artery Disease: Yes Diabetes: No Diminished Hearing: No Endocrine: No Gastrointestinal Disorders: Yes (NUMEROUS GI SERIES, ENDOSCOPY) GERD: Yes Glaucoma: No Genitourinary: No Headaches: No Hepatitis: Yes (HEP A IN HIGH SCHOOL) Hiatal Hernia: No Hypertension: Yes Immune Disorder: No Kidney Stones: No Musculoskeletal: No Neurologic: No Psychiatric: No Reproductive: No Respiratory: Yes Immunizations Current: No Migraines: No Myocardial Infarction: No Pneumonia: Yes Radiation Therapy: No Renal Failure: No Seizures: No Sickle Cell Disease: No Sleep Apnea: No Thyroid Disease: No Ulcer: No Past Surgical History Abdominal Surgery: Yes ( UPPER GI) AICD: No Appendectomy: No Arteriovenous Shunt: No Cardiac Surgery: No Cholecystectomy: No Ear Surgery: No Endocrine Surgery: No Eye Surgery: No Genitourinary Surgery: No Gynecologic Surgery: No Insulin Pump: No Joint Replacement: No Oral Surgery: No Pacemaker: No Thoracic Surgery: No (CHEST TUBE RIGHT SIDE/ COLLAPSED LUNG 2012) Other Surgery: Yes Social History Alcohol Use: No Tobacco Use: Yes (2 CIGS/DAY) Substance Use: No (DENIES) Allergies-Medications (Allergen,Severity, Reaction): Coded Allergies: Codeine (Verified Adverse Reaction, Mild, HEART SKIPPS BEAT., 08/28/16) Comments List of his allergies reviewed from the nursing note. Reported Meds & Prescriptions Reported Meds & Active Scripts Active Narrative Medication List of his home medications reviewed from the nursing note. Review of Systems Except as stated in HPI: all other systems reviewed are Neg Physical Exam Narrative GENERAL: Awake, alert, anxious, moderate to significant distress SKIN: Ashen and diaphoretic HEAD: Atraumatic. Normocephalic. EYES: Pupils equal and round. No scleral icterus. No injection or drainage. ENT: No nasal bleeding or discharge. Mucous membranes pink and moist. NECK: Trachea midline. No JVD. CARDIOVASCULAR: Regular rate and rhythm. No murmur appreciated. RESPIRATORY: Decreased breath sounds bilaterally with end expiratory wheeze, accessory muscles use for respiration. GASTROINTESTINAL: Abdomen soft, non-tender, nondistended. Hepatic and splenic margins not palpable. MUSCULOSKELETAL: No obvious deformities. No clubbing. No cyanosis. No edema. NEUROLOGICAL: Awake and alert. No obvious cranial nerve deficits. Motor grossly within normal limits. Normal speech. PSYCHIATRIC: Appropriate mood and affect; insight and judgment normal. Data Data Last Documented VS Vital Signs Date Time Temp Pulse Resp B/P Pulse Ox O2 Delivery O2 Flow Rate FiO2 08/28/16 09:21 50 08/28/16 09:20 85 24 152/71 99 BiPAP 08/28/16 08:39 3 08/28/16 08:25 98.3 Orders Albuterol-Ipratropium Neb (Duoneb Neb) (08/28/16 08:24) Complete Blood Count With Diff (08/28/16 08:25) Basic Metabolic Panel (Bmp) (08/28/16 08:25) B-Type Natriuretic Peptide (08/28/16 08:25) Prothrombin Time / Inr (Pt) (08/28/16 08:25) Magnesium (Mg) (08/28/16 08:25) Troponin I (08/28/16 08:25) Iv Access Insert/Monitor (08/28/16 08:25) Electrocardiogram (08/28/16 08:25) Ecg Monitoring (08/28/16 08:25) Oximetry (08/28/16 08:25) Oxygen Administration (08/28/16 08:25) Chest, Single Ap (08/28/16 08:25) Sodium Chloride 0.9% Flush (Ns Flush) (08/28/16 08:30) Methylprednisolone So Succ Inj (Solumedr (08/28/16 08:30) Albuterol-Ipratropium Neb (Duoneb Neb) (08/28/16 08:30) Labetalol Inj (Trandate Inj) (08/28/16 08:30) Succinylcholine Inj (Quelicin Inj) (08/28/16 08:42) Arterial Blood Gas (Abg) (08/28/16 08:45) Furosemide Inj (Lasix Inj) (08/28/16 08:45) Resp Bipap / Cpap Non Invas Vt (08/28/16 08:45) Ondansetron Inj (Zofran Inj) (08/28/16 09:30) Admit Order (Ed Use Only) (08/28/16 09:58) Labs Laboratory Tests Test 08/28/16 08/28/16 08:35 09:16 White Blood Count 8.5 TH/MM3 Red Blood Count 4.75 MIL/MM3 Hemoglobin 15.2 GM/DL Hematocrit 45.0 % Mean Corpuscular Volume 94.8 FL Mean Corpuscular Hemoglobin 32.0 PG Mean Corpuscular Hemoglobin 33.8 % Concent Red Cell Distribution Width 15.0 % Platelet Count 331 TH/MM3 Mean Platelet Volume 8.8 FL Neutrophils (%) (Auto) 57.5 % Lymphocytes (%) (Auto) 19.9 % Monocytes (%) (Auto) 11.1 % Eosinophils (%) (Auto) 10.7 % Basophils (%) (Auto) 0.8 % Neutrophils # (Auto) 4.9 TH/MM3 Lymphocytes # (Auto) 1.7 TH/MM3 Monocytes # (Auto) 0.9 TH/MM3 Eosinophils # (Auto) 0.9 TH/MM3 Basophils # (Auto) 0.1 TH/MM3 CBC Comment DIFF FINAL Differential Comment Prothrombin Time 10.4 SEC Prothromb Time International 0.9 RATIO Ratio Sodium Level 133 MEQ/L Potassium Level 5.4 MEQ/L Chloride Level 101 MEQ/L Carbon Dioxide Level 24.4 MEQ/L Anion Gap 8 MEQ/L Blood Urea Nitrogen 15 MG/DL Creatinine 0.97 MG/DL Estimat Glomerular Filtration 79 ML/MIN Rate Random Glucose 91 MG/DL Calcium Level 9.5 MG/DL Magnesium Level 1.8 MG/DL Troponin I LESS THAN 0.02 NG/ML B-Type Natriuretic Peptide 6 PG/ML Blood Gas Puncture Site RT RADIAL Blood Gas Patient Temperature 98.6 Blood Gas HCO3 24 mmol/L Blood Gas Base Excess -0.4 mmol/L Blood Gas Oxygen Saturation 98 % Arterial Blood pH 7.36 Arterial Blood Partial 45 mmHg Pressure CO2 Arterial Blood Partial 234 mmHG Pressure O2 Arterial Blood Oxygen Content 21.1 Vol % Arterial Blood 1.1 % Carboxyhemoglobin Arterial Blood Methemoglobin 0.7 % Blood Gas Hemoglobin 15.0 G/DL Oxygen Delivery Device BIPAP Blood Gas Ventilator Setting 16/+8 Blood Gas Inspired Oxygen 50 % [facility] Medical Decision Making Medical Screen Exam Complete: Yes Emergency Medical Condition: Yes Medical Record Reviewed: Yes Interpretation(s) Twelve-lead EKG was reviewed by me. Normal sinus rhythm, normal axis, peaked T waves. Heart rate of 83 bpm. Differential Diagnosis Acute COPD exacerbation, flash pulmonary edema, pneumonia, pleural effusion Narrative Course 9:33 AM patient was started on DuoNeb's 3 and IV Solu-Medrol soon after the assessment. I had also ordered 20 mg of IV labetalol for his hypertension. However after the DuoNeb finished patient condition worsened and he was tripoding and almost air hunger. He was put on BiPAP and IV Lasix was given. I was waiting for the chest x-ray to be loaded up to review the films. The BiPAP currently seems to have helped tremendously. Blood pressure has come down and his blood gas looks very good. Awaiting for the residents to call back for admission. Critical Care Narrative Aggregate critical care time was 45 minutes. Time to perform other separately billable procedures was not included in the critical care time. My time did not include minutes spent treating any other patients simultaneously or on activities that did not directly contribute to the patient's treatment. The services I provided to this patient were to treat and/or prevent clinically significant deterioration that could result in: Respiratory distress, acute COPD exacerbation, malignant hypertension, BiPAP management I provided critical care services requiring my management, as noted below: Chart data review, documentation time, medication orders and management, vital sign assessments/reviewing monitor data, ordering and reviewing lab tests, ordering and interpreting/reviewing x-rays and diagnostic studies, care of the patient and discussion of the patient with the admitting physicians. Procedures EKG Prior to Arrival: No Diagnosis Primary Impression: Respiratory distress Additional Impressions: Acute exacerbation of chronic obstructive pulmonary disease (COPD) Malignant hypertension Poor compliance with medication Admitting Information Admitting Physician Requests: Admit Scripts Doxycycline Hyclate 100 Mg [id number] Mg PO BID #10 CAP Ref 0 Prov:Nurys Lauren MD R1 08/30/16 Pantoprazole 40 Mg Tab40 Mg PO DAILY #30 TAB Prov:Nurys Lauren MD R1 08/30/16 Albuterol 18 GM Inh (Ventolin Hfa 18 GM Inh)90 Mcg/Act Aer2 Puff INH Q4-6H PRN ( SHORTNESS OF BREATH) #1 INHALER Ref 1 Two puffs every 4-6 hrs as needed for shortness of breath or wheezing. If you need to use more often, call your doctor. Prov:Nurys Lauren MD R1 08/30/16 Prednisone (21) 10 mg tab Dose Pack 10 Mg Pack10 Mg PO DIRECTED #1 DSPK Ref 0 Take 2 pills twice daily for 3 days, then 1 pill twice daily for 3 days, then 1 pill once daily for 3 days, then stop. Prov:Nurys Lauren MD R1 08/30/16 Budesonide-Formoterol Inh (Symbicort Inh)160-4.5 Mcg/Act Aero2 Puff INH Q12HR # 1 INHALER Prov:Nurys Lauren MD R1 08/30/16 Tiffanie Paniagua MD Aug 28, 2016 08:25
[2016-08-28] MEDS ORDERED: SODIUM CHLORIDE 0.9% FLUSH 10 ML FLUSH IVF PRN (08:30)
[2016-08-28] MEDS ORDERED: methylPREDNISolone SOD SUCC 125 MG/2 ML VIAL IVP ONE (08:30)
[2016-08-28] MEDS ORDERED: LABETALOL HCL 100 MG/20 ML VIAL IV PUSH ONE (08:30)
[2016-08-28] MEDS: RESP: ALBUTEROL 2.5 MG/IPRATROPIUM 0.5 MG NEB (SCH) INH ×6 (08:30→23:47)
[2016-08-28] MEDS ORDERED: SUCCINYLCHOLINE CHLORIDE 200 MG/10 ML VIAL ONE (08:42)
[2016-08-28] MEDS ORDERED: FUROSEMIDE 40 MG/4 ML VIAL IVP ONE (08:45)
--- NOTE | 2016-08-28 08:54 | RADRPT ---
EXAM DATE/TIME: 08/28/2016 08:25 [facility] COMPARISON: CHEST SINGLE AP, June 22, 2016, 5:46. CHEST SINGLE AP, July 27, 2016, 18:41. INDICATIONS : Short of breath. MEDICAL HISTORY : Chronic obstructive pulmonary disease. Hypertension Diabetes mellitus type II. Asthma SURGICAL HISTORY : None. ENCOUNTER: Initial ACUITY: 1 day PAIN SCORE: 3/10 LOCATION: Bilateral chest FINDINGS: Lungs are well-expanded with diffuse interstitial prominence. There are biapical parenchymal scarring , more prominently on the left. Appearance is unchanged from prior exams. The cardiomediastinal conto urs are within normal limits. Bony thorax is intact. CONCLUSION: 1. Changes suggestive of obstructive pulmonary disease. 2. No acute abnormality or significant interval change. Tom White MD on August 28, 2016 at 8:49 Board Certified Radiologist. This report was verified electronically.
[2016-08-28 08:55] LABS: AUTOMATED NEUTROPHIL # 4.9 TH/MM3 (1.8-7.7); BASOPHIL # 0.1 TH/MM3 (0-0.2); BASOPHIL % 0.8 % (0.0-2.0); EOSINOPHIL # 0.9 TH/MM3 (0-0.4); EOSINOPHIL % 10.7 % (0.0-4.0); HEMO FLAGS DIFF FINAL; LYMPH % 19.9 % (9.0-44.0); LYMPHOCYTE # 1.7 TH/MM3 (1.0-4.8); MEAN CELL VOLUME 94.8 FL (80.0-100.0); MEAN CORPUSCULAR HGB CONC 33.8 % (32.0-36.0); MONO % 11.1 % (0.0-8.0); NEUT % 57.5 % (16.0-70.0); PLATELET COUNT 331 TH/MM3 (150-450); RED BLOOD COUNT 4.75 MIL/MM3 (4.50-5.90); WHITE BLOOD COUNT 8.5 TH/MM3 (4.0-11.0)
[2016-08-28 09:05] LABS: INTERNATIONAL NORMALIZED RATIO 0.9 RATIO; PROTHROMBIN TIME - PATIENT 10.4 SEC (9.8-11.6)
[2016-08-28 09:21] LABS: ANION GAP 8 MEQ/L (5-15); BICARBONATE 24.4 MEQ/L (21.0-32.0); BLOOD UREA NITROGEN 15 MG/DL (7-18); CHLORIDE 101 MEQ/L (98-107); GLOMERULAR FILTRATION RATE 79 ML/MIN (>89); MAGNESIUM 1.8 MG/DL (1.5-2.5); POTASSIUM 5.4 MEQ/L (3.5-5.1); SODIUM (NA) 133 MEQ/L (136-145)
[2016-08-28 09:29] LABS: BLOOD GAS BASE EXCESS -0.4 mmol/L (-2-2); BLOOD GAS CARBOXYHEMOGLOBIN 1.1 % (0-4); BLOOD GAS HCO3 24 mmol/L (22-26); BLOOD GAS METHEMOGLOBIN 0.7 % (0-2); BLOOD GAS O2 HGB SATURATION 98 % (90-100); BLOOD GAS OXYGEN CONTENT 21.1 Vol % (12.0-20.0); BLOOD GAS PCO2 45 mmHg (38-42); BLOOD GAS PO2 234 mmHG (61-120); CRITICAL VALUE NO; OXYGEN DEVICE BIPAP; TEMP CORR TO 98.6
[2016-08-28 09:30] LABS: DRAW SITE RT RADIAL; FIO2 50 %; VENT SETTINGS 16/+8
[2016-08-28] MEDS ORDERED: ONDANSETRON HCL 4 MG/2 ML VIAL IV PUSH ONE (09:30)
[2016-08-28 09:31] LABS: NUMBER OF ARTERIAL PUNCTURES 1; STAT YES; ULNAR PULSE PRESENT
--- NOTE | 2016-08-28 10:09 | HHI.HP ---
[facility] Service Family Medicine Primary Care Physician No Primary Care Physician Admission Diagnosis Respiratory distress Acute COPD exacerbation Malignant hypertension Diagnoses: (1) Acute exacerbation of chronic obstructive pulmonary disease (COPD) Diagnosis: Principal (2) Poor compliance with medication Diagnosis: Secondary (3) Acute hyperkalemia Diagnosis: Secondary (4) Malignant hypertension Diagnosis: Secondary International Travel<30 Days: No Contact w/Intl Traveler<30days: No Known Affected Area: No History of Present Illness Patient is a 60 y/o male smoker with a hx of COPD who presents to the ED complaining of shortness of breath since yesterday afternoon. He states that he could hardly move and experienced shortness of breath with little walking around the house. He did not sleep. Patient admits to urinating on himself this morning; he attributes the event to anxiety. He admits to a dry, non-mucous, non -bloody cough. He admits to fatigue but denies fever or chills. He denies recent sick contacts. Patient was recently (07/27) admitted for an acute exacerbation of chronic COPD. Patient was discharged on Levaquin, Symbicort and Albuterol, which were filled, as well as a quick taper of prednisone, which was not filled by the patient. He did not follow-up with a PCP as he "is in-between doctors." He ran out of Albuterol yesterday; patient was using Albuterol x6/day for the past month. At baseline, patient is able to walk approximately 2 blocks. He does not require oxygen at home. He has never been intubated. At time of ED arrival, patient's systolic BP was 189, which was treated and, consequently, normalized. On admission, CXR shows no acute abnormality or significant interval change. EKG shows peaked t waves; potassium is elevated at 5.4 with repeat at 5.9. (Dayana Land MD R1) Review of Systems ROS Limitations: Clinical Condition (Patient on Bi-PAP, difficult to understand ) Constitutional: COMPLAINS OF: Fatigue, Dizziness, DENIES: Fever, Weight loss, Chills, Night Sweats Endocrine: DENIES: Heat/cold intolerance Eyes: COMPLAINS OF: Blurred vision, DENIES: Diplopia Ears, nose, mouth, throat: DENIES: Nasal discharge, Throat pain, Running Nose Respiratory: COMPLAINS OF: Cough (chronic, dry, non-mucous, non-bloody), Wheezing, Shortness of breath Cardiovascular: DENIES: Chest pain, Palpitations Gastrointestinal: COMPLAINS OF: Diarrhea (loose stool since yesterday), Nausea , DENIES: Abdominal pain, Black stools, Bloody stools, Constipation, Vomiting Genitourinary: COMPLAINS OF: Urinary frequency, Nocturia, DENIES: Hematuria, Dysuria Musculoskeletal: COMPLAINS OF: Back pain (chronic), DENIES: Joint pain, Muscle aches Integumentary: DENIES: Abnormal pigmentation, Nail changes Hematologic/lymphatic: COMPLAINS OF: Bruising Immunologic/allergic: DENIES: Eczema, Urticaria Neurologic: COMPLAINS OF: Headache Psychiatric: COMPLAINS OF: Anxiety (Dayana Land MD R1) Past Family Social History Past Medical History Hepatitis: * "As a kid," "went away" HTN: * Used to be on medication but has not been for the past 10 years Asthma Bronchitis COPD - emphysema Esophageal strictures * Needed dilation about 15 years ago Past Surgical History * Esophageal strictures dilation 15 years ago * Collapsed lung 10 years ago Reported Medications Reported Meds & Active Scripts Active Prednisone 20 Mg Tab 20 Mg PO BID Take 3 tablets daily x 3 days, then 2 tablets x 3 days then 1 tab x 3 days then stop. Symbicort Inh (Budesonide/Formoterol Fumarate) 160-4.5 Mcg/Act Aero 2 Puff INH Q12HR 30 Days (Dayana Land MD R1) Allergies: Coded Allergies: Codeine (Verified Adverse Reaction, Mild, HEART SKIPPS BEAT., 08/28/16) Active Ordered Medications Current Medications Medications (Trade) Dose Ordered Sig/Adam Route Start Time Stop Time Status Last Admin (NS Flush) 2 ml BID IV FLUSH 08/28/16 21:00 (NS Flush) 2 ml UNSCH PRN IV FLUSH 08/28/16 10:45 (Levaquin) 750 mg Q24H PO 08/28/16 12:00 08/28/16 11:35 (Habitrol 21 Mg Patch.24 Hr) 1 patch DAILY TD 08/29/16 09:00 (Lovenox Inj) 40 mg Q24H SQ 08/28/16 12:00 08/28/16 11:35 (Zofran Inj) 4 mg Q6H PRN IVP 08/28/16 11:15 (Tylenol) 650 mg Q6H PRN PO 08/28/16 11:15 08/28/16 11:35 (Alyson-Colace) 1 tab BID PO 08/28/16 21:00 (Milk Of Magnesia Liq) 30 ml Q12H PRN PO 08/28/16 11:15 (Senokot) 17.2 mg Q12H PRN PO 08/28/16 11:15 (Dulcolax Supp) 10 mg DAILY PRN RECTAL 08/28/16 11:15 (Lactulose Liq) 30 ml DAILY PRN PO 08/28/16 11:15 Miscellaneous Information 1 HS T-DERMAL 08/28/16 21:00 (Deltasone) 40 mg DAILY PO 08/29/16 09:00 (Protonix) 40 mg DAILY PO 08/29/16 09:00 Budesonide/ Formoterol Fumarate 2 puff 2 puff Q12HR INH 08/28/16 21:00 Sodium Chloride 1,000 ml @ 75 mls/hr [id number] IV 08/28/16 17:00 (Calcium Gluconate Inj/NS Inj) 110 ml @ 110 mls/hr ONCE ONCE IV 08/28/16 17:00 08/28/16 17:59 Family History Dad: * Worked in nuclear plant * Colon cancer Mom * Had lung cancer- was never a smoker Social History Alcohol: social drinker; 3-4 beers/week Tobacco: used to smoke very heavily (3 packs/day), now 1/2 pack of cigarettes a day; smoker for 40 years Recreation drugs: none Lives with roommate No longer drives, gets around by train (Dayana Land MD R1) Physical Exam Vital Signs Vital Signs Date Time Temp Pulse Resp B/P Pulse Ox O2 Delivery O2 Flow Rate FiO2 08/28/16 09:21 50 08/28/16 09:20 85 24 152/71 99 BiPAP 50 08/28/16 08:45 99 50 08/28/16 08:39 97 Nasal Cannula 3 08/28/16 08:25 98.3 117 29 184/108 91 08/28/16 08:20 99 Non-Rebreather 15.00 100 08/28/16 08:18 97.7 124 28 200/122 91 Physical Exam GENERAL: This is a well-nourished, well-developed patient, in respiratory distress. SKIN: Small diffuse papular lesions with evidence of excoriation on upper extremity and left dorsal foot. No rashes, ecchymoses. Cool and dry. HEAD: Atraumatic. Normocephalic. No temporal or scalp tenderness. EYES: Pupils equal round and reactive. Extraocular motions intact. No scleral icterus. No injection or drainage. ENT: Nose without bleeding, purulent drainage or septal hematoma. Throat not assessed - patient on Bi-PAP during exam. Airway patent. NECK: Trachea midline. No JVD or lymphadenopathy. Supple, nontender, no meningeal signs. CARDIOVASCULAR: Heart sounds could not be assessed due to loud lung sounds. RESPIRATORY: Diffuse wheezing throughout all lung thomas. GASTROINTESTINAL: Abdomen soft, non-tender, nondistended. No hepato-splenomegaly , or palpable masses. No guarding. Bowel sounds minimal. MUSCULOSKELETAL: Extremities without clubbing, cyanosis, or edema. No joint tenderness, effusion, or edema noted. No calf tenderness. Negative Homans sign bilaterally. NEUROLOGICAL: Awake and alert. Cranial nerves II through XII intact. Motor and sensory grossly within normal limits. Normal speech. Laboratory Laboratory Tests Test 08/28/16 08/28/16 08:35 09:16 White Blood Count 8.5 Red Blood Count 4.75 Hemoglobin 15.2 Hematocrit 45.0 Mean Corpuscular Volume 94.8 Mean Corpuscular Hemoglobin 32.0 Mean Corpuscular Hemoglobin 33.8 Concent Red Cell Distribution Width 15.0 Platelet Count 331 Mean Platelet Volume 8.8 Neutrophils (%) (Auto) 57.5 Lymphocytes (%) (Auto) 19.9 Monocytes (%) (Auto) 11.1 Eosinophils (%) (Auto) 10.7 Basophils (%) (Auto) 0.8 Neutrophils # (Auto) 4.9 Lymphocytes # (Auto) 1.7 Monocytes # (Auto) 0.9 Eosinophils # (Auto) 0.9 Basophils # (Auto) 0.1 CBC Comment DIFF FINAL Differential Comment Prothrombin Time 10.4 Prothromb Time International 0.9 Ratio Sodium Level 133 Potassium Level 5.4 Chloride Level 101 Carbon Dioxide Level 24.4 Anion Gap 8 Blood Urea Nitrogen 15 Creatinine 0.97 Estimat Glomerular Filtration 79 Rate Random Glucose 91 Calcium Level 9.5 Magnesium Level 1.8 Troponin I LESS THAN 0.02 B-Type Natriuretic Peptide 6 Blood Gas Puncture Site RT RADIAL Blood Gas Patient Temperature 98.6 Blood Gas HCO3 24 Blood Gas Base Excess -0.4 Blood Gas Oxygen Saturation 98 Arterial Blood pH 7.36 Arterial Blood Partial 45 Pressure CO2 Arterial Blood Partial 234 Pressure O2 Arterial Blood Oxygen Content 21.1 Arterial Blood 1.1 Carboxyhemoglobin Arterial Blood Methemoglobin 0.7 Blood Gas Hemoglobin 15.0 Oxygen Delivery Device BIPAP Blood Gas Ventilator Setting 16/+8 Blood Gas Inspired Oxygen 50 (Dayana Land MD R1) Result Diagram: 08/28/1683408/28/16834 Imaging Last Impressions Chest X-Ray 08/28/16824 Signed Impressions: Service Date/Time: Sunday, August 28, 2016 08:25 - CONCLUSION: 1. Changes suggestive of obstructive pulmonary disease. 2. No acute abnormality or significant interval change. Tom White MD (Dayana Land MD R1) Septic Shock Reassessment Heart: Regular rate and rhythm Lungs: Other (Wheezing ) Skin: Cold, Dry (Dayana Land MD R1) Assessment and Plan Assessment and Plan Patient is a 60 y/o male smoker with a hx of COPD who presents to the ED complaining of shortness of breath since yesterday afternoon. He was recently (07/27) admitted for an acute exacerbation of chronic COPD. He did not follow-up with a PCP upon discharge and ran out of albuterol, which he was using x6/day for the past month, yesterday. Patient's condition improved in the ED with breathing treatment. CXR showed no evidence of infection. At time of ED arrival, systolic BP was 189, which was treated and has since stabilized. EKG showed peaked t waves and potassium was recorded at 5.4. Treatment ongoing. Code Status Full Code Discussed Condition With Dr. Leonidas Maguire (Dayana Land MD R1) Attending Attestation The patient has been seen and examined. The chart and all resident notes have been reviewed. I agree that inpatient care is appropriate and that a two midnight stay is expected for the reasons documented in the resident history and physical. I have discussed this with the resident and certify the resident s order for inpatient admission. Patient seen and examined. Case reviewed and discussed Please refer to resident H&P for further details regarding HPI, ROS, PMH, SurgHx , FH and SocHx In summary, patient is a 60yoM with a history of COPD, continued tobacco dependence, presenting for worsening shortness of breath He was seen in the ED with these complaints, but failed outpatient attempts to treat this and came back today with complaints of severe ROLDAN He was hypoxic on arrival to ED, requiring bipap. He denies chest pain to me. GENERAL: wdwn male, appears older than stated age. short of breath with sentences. Smells of smoke SKIN: Warm and dry. Scattered scabbing over feet and hands and upper extremities HEAD: Normocephalic. AT EYES: No scleral icterus. No injection or drainage. ENT: On ventimask NECK: Supple, trachea midline. No JVD or lymphadenopathy. CARDIOVASCULAR: Tachycardic rate and reg rhythm without murmurs, gallops, or rubs. RESPIRATORY: Breath sounds with extensive exp wheezing across all lung thomas, prolonged expiratory phase, no crackles. GASTROINTESTINAL: Abdomen soft, non-tender, nondistended. Normal active BS MUSCULOSKELETAL: No cyanosis, or edema. Skin as above. Feet are very dirty and hygiene is poor. BACK: Nontender without obvious deformity. No CVA tenderness. NEURO: Awake and alert. Broken speech due to ventimask and dyspnea. MAEW A/P: 60yoM admitted with: Acute exacerbation of COPD Hypoxia Failed outpatient therapy Hyperkalemia Tobacco dependence Uncontrolled HTN Supplemental oxygen Rocephin, Ronaldoithro Fabiánoneangle BP control Check UA Serial BMP Sputum culture Counseled on smoking cessation Lovenox Patient seen and examined. Case reviewed and discussed Agree with plan of care as discussed with me and documented in the resident note. (Liliya Maguire MD) Problem List: (1) Acute exacerbation of chronic obstructive pulmonary disease (COPD) Status: Acute Plan: 08/28: * Patient was started on Duoneb Neb q4hr, Symbicort 2 puffs q12hr, Prednisone 40 mg PO daily and Levaquin 750 mg PO q24hr. * Patient transitioned from Bi-PAP to venti-mask. Plan to wean off oxygen. * Strict I + Os ordered. * Incentive Spirometer ordered. * Beside PFTs ordered. (2) Acute hyperkalemia Status: Acute Plan: 08/28: * Asymptomatic. * At admission, EKG showed peaked t waves and potassium at 5.4. * Repeat potassium at 5.9. * Treated with Kayexalate 15 mg PO once, calcium gluconate 110ml at 110mls/hr IV once and NS 1,000ml at 75 mls/hr IV. * Repeat EKG. * Repeat BMP ordered for 20:00. (3) Poor compliance with medication Status: Acute Plan: Patient has not followed-up with PCP following last hospital admission. Case management consulted. (4) Malignant hypertension Status: Resolved Plan: At admission, systolic BP was recorded at 189. Patient was treated with labetalol 20 mg IV Push once. BP normalized. (5) Fluid, Electrolyte, Nutrition, Prophylaxis Status: Acute Plan: Fluids: * Tolerating PO * NS 1000 ml at 75 mls/hr Electrolytes * see Hyperkalemia * Monitor and replete as needed Nutrition: * Heart-healthy diet DVT Prophylaxis: * Early ambulation. * Bilateral SCDs * Lovenox 40mg subQ q24hr GI Prophylaxis: * Protonix 40mg daily PO (6) Smoking Status: Acute Plan: 40 year hx. Used to be heavy smoker, now 1/2 pack/day. * Nicotine patch * Smoking cessation counseling (Dayana Land MD R1) Physician Certification 2 Midnight Certification Type: Admission for Inpatient Services Order for Inpatient Services The services are ordered in accordance with Medicare regulations or non- Medicare payer requirements, as applicable. In the case of services not specified as inpatient-only, they are appropriately provided as inpatient services in accordance with the 2-midnight benchmark. Estimated LOS (days): 3 days is the estimated time the patient will need to remain in the hospital, assuming treatment plan goals are met and no additional complications. Post-Hospital Plan: Home (Dayana Land MD R1) Dayana Land MD R1 Aug 28, 2016 10:09 Liliya Maguire MD Aug 28, 2016 21:56
[2016-08-28] MEDS ORDERED: SODIUM CHLORIDE 0.9% FLUSH 10 ML FLUSH IV FLUSH PRN (10:45)
[2016-08-28] MEDS ORDERED: RESP: ALBUTEROL 2.5 MG/3 ML NEB (PRN) INH (10:45)
[2016-08-28] MEDS ORDERED: ONDANSETRON HCL 4 MG/2 ML VIAL IVP PRN (11:15)
[2016-08-28] MEDS ORDERED: MAGNESIUM HYDROXIDE SUSP 30 ML CUP PO PRN (11:15)
[2016-08-28] MEDS ORDERED: BISACODYL 10 MG SUPP RECTAL PRN (11:15)
[2016-08-28] MEDS ORDERED: LACTULOSE SYRUP 20 GM/30 ML CUP PO PRN (11:15)
[2016-08-28] MEDS ORDERED: SENNOSIDES 8.6 MG TAB PO PRN (11:15)
[2016-08-28] MEDS ORDERED: ACETAMINOPHEN 325 MG TAB PO PRN (11:15)
[2016-08-28] MEDS: ENOXAPARIN SODIUM 40 MG/0.4 ML SYRINGE SQ SCH (11:35)
[2016-08-28] MEDS ORDERED: LEVOFLOXACIN 750 MG TAB PO SCH (12:00)
--- NOTE | 2016-08-28 14:29 | EKG ---
Date Performed: 08/28/2016 Time Performed: 09:12:55 PTAGE: 60 years EKG: Sinus rhythm POSSIBLE RIGHT ATRIAL ENLARGEMENT Since previous tracing, no significant change noted BORDERLINE ECG PREVIOUS TRACING : 07/27/2016 18.29.29 DOCTOR: Cash Olguin Interpretating Date/Time 08/28/2016 14:28:06
[2016-08-28 15:39] LABS: ANION GAP 10 MEQ/L (5-15); BICARBONATE 26.4 MEQ/L (21.0-32.0); BLOOD UREA NITROGEN 24 MG/DL (7-18); CHLORIDE 98 MEQ/L (98-107); GLOMERULAR FILTRATION RATE 58 ML/MIN (>89); POTASSIUM 5.9 MEQ/L (3.5-5.1); SODIUM (NA) 134 MEQ/L (136-145)
[2016-08-28 15:43] LABS: CREATINE KINASE 227 U/L (39-308)
[2016-08-28 15:55] LABS: CKMB 5.7 NG/ML (0.5-3.6)
[2016-08-28] MEDS ORDERED: CALCIUM GLUCONATE 10% 1 GM/10 ML VIAL IV ONE (16:45)
[2016-08-28] MEDS ORDERED: SODIUM POLYSTYRENE SULFONATE SUSP 15 GM/60 ML CUP PO ONE (16:45)
[2016-08-28] MEDS ORDERED: CALCIUM GLUCONATE INJ 1 GM in SODIUM CHLORIDE 0.9% INJ 100 ML IV ONE (17:00)
[2016-08-28] MEDS: SODIUM CHLOR 0.9% 1000 ML INJ 1,000 ML IV SCH (17:50)
[2016-08-28] MEDS: REMOVE OLD NICODERM (NICOTINE) PATCH T-DERMAL SCH (21:00)
[2016-08-28] MEDS: DOCUSATE SODIUM 50 MG/SENNA 8.6 MG TAB PO SCH (21:00)
[2016-08-28] MEDS: SODIUM CHLORIDE 0.9% FLUSH 10 ML FLUSH IV FLUSH SCH (21:00)
[2016-08-28] MEDS: BUDESONIDE-FORMOTEROL 160/4.5 MCG INHALER INH SCH (21:44)
[2016-08-28] MEDS ORDERED: AZITHROMYCIN 250 MG TAB PO ONE (22:00)
[2016-08-28] MEDS: cefTRIAXone INJ 1,000 MG in SODIUM CHLORIDE 0.9% INJ 100 ML IV SCH (22:20)
[2016-08-29] VITALS (13 sets, daily range): BP systolic 120–144; BP diastolic 62–88; PULSE 72–104; RESP 18–20; TEMP 97.2–98.1; O2SAT 88–99
[2016-08-29 01:41] LABS: BICARBONATE 24.5 MEQ/L (21.0-32.0); POTASSIUM 4.7 MEQ/L (3.5-5.1)
[2016-08-29 02:48] LABS: BLOOD, URINE NEG (NEG); COMMENT (UR) CULT NOT INDICATED; CULTURE IF INDICATED CULT NOT INDICATED; GLUCOSE,URINE 300 mg/dL (NEG); HYALINE CAST, URINE 1 /lpf (RARE); KETONE, URINE NEG (NEG); MUCUS URINE FEW /lpf (OCC); NITRITE,URINE NEG (NEG); PH, URINE 5.5 (5.0-8.5); URINE COLOR YELLOW (YELLW/STRAW)
[2016-08-29] MEDS: RESP: ALBUTEROL 2.5 MG/IPRATROPIUM 0.5 MG NEB (SCH) INH ×6 (03:25→23:26)
[2016-08-29] MEDS: SODIUM CHLOR 0.9% 1000 ML INJ 1,000 ML IV SCH (06:15)
[2016-08-29 06:59] LABS: AUTOMATED NEUTROPHIL # 8.1 TH/MM3 (1.8-7.7); BASOPHIL % 0.1 % (0.0-2.0); HEMATOCRIT 39.1 % (39.0-51.0); HEMO FLAGS DIFF FINAL; LYMPH % 7.2 % (9.0-44.0); LYMPHOCYTE # 0.7 TH/MM3 (1.0-4.8); MEAN CELL VOLUME 95.4 FL (80.0-100.0); MEAN CORPUSCULAR HGB CONC 33.6 % (32.0-36.0); MONO % 9.4 % (0.0-8.0); NEUT % 83.3 % (16.0-70.0); PLATELET COUNT 293 TH/MM3 (150-450); WHITE BLOOD COUNT 9.7 TH/MM3 (4.0-11.0)
[2016-08-29 07:31] LABS: ALKALINE PHOSPHATASE 88 U/L (45-117); ALT (GPT) 32 U/L (12-78); ANION GAP 9 MEQ/L (5-15); AST (GOT) 23 U/L (15-37); BICARBONATE 26.7 MEQ/L (21.0-32.0); BLOOD UREA NITROGEN 29 MG/DL (7-18); CHLORIDE 100 MEQ/L (98-107); GLOMERULAR FILTRATION RATE 64 ML/MIN (>89); POTASSIUM 4.4 MEQ/L (3.5-5.1); SODIUM (NA) 136 MEQ/L (136-145); TOTAL BILIRUBIN ADULT 0.4 MG/DL (0.2-1.0)
[2016-08-29] MEDS: NICOTINE 21 MG/24 HR PATCH TD SCH (08:46)
[2016-08-29] MEDS: PANTOPRAZOLE SOD 40 MG DELAYED RELEASE TAB PO SCH (08:47)
[2016-08-29] MEDS: BUDESONIDE-FORMOTEROL 160/4.5 MCG INHALER INH SCH ×2 (08:50→20:51)
[2016-08-29] MEDS: DOCUSATE SODIUM 50 MG/SENNA 8.6 MG TAB PO SCH (08:50)
[2016-08-29] MEDS: SODIUM CHLORIDE 0.9% FLUSH 10 ML FLUSH IV FLUSH SCH ×2 (08:50→20:52)
[2016-08-29] MEDS ORDERED: predniSONE 20 MG TAB PO SCH (09:00)
--- NOTE | 2016-08-29 10:14 | HHI.FPPN ---
Subjective Remarks No acute events overnight. VS unremarkable. Has continues to decrease O2 requirements. This morning he reports that he is better but continues to have wheezing. Has improved by 70%. Still gets SOB when ambulating to and from the bathroom. Improves with rest. Continues to have soft stools but this has not worsened. (Patti Hernandez MD R2) Objective Vitals Vital Signs Date Time Temp Pulse Resp B/P Pulse Ox O2 Delivery O2 Flow Rate FiO2 08/29/16 09:29 99 Nasal Cannula 2.00 08/29/16 09:00 Nasal Cannula 2.00 08/29/16 08:00 97.4 83 20 123/75 98 08/29/16 08:00 Nasal Cannula 3.00 08/29/16 04:00 97.2 84 18 120/62 99 08/29/16 04:00 Nasal Cannula 2.00 08/29/16 03:31 99 Nasal Cannula 2.00 08/29/16 00:00 Nasal Cannula 2.00 08/29/16 00:00 98.1 90 18 130/72 98 08/28/16 23:49 98 Nasal Cannula 2.00 08/28/16 20:18 98 3.00 08/28/16 20:00 98 08/28/16 20:00 Room Air 3.00 08/28/16 20:00 97.7 102 18 134/76 96 08/28/16 16:00 97.9 97 22 120/67 98 08/28/16 14:27 98 Nasal Cannula 3.00 08/28/16 12:40 97.5 86 20 121/77 97 08/28/16 11:36 82 20 149/90 97 Nasal Cannula 3 08/28/16 11:08 83 24 131/101 95 Nasal Cannula 3 I/O 08/28/16 08/28/16 08/28/16 08/29/16 08/29/16 08/29/16 07:00 15:00 23:00 07:00 15:00 23:00 Intake Total 1043 ml 828 ml Output Total 150 ml Balance 1043 ml 678 ml Intake Oral 360 ml 120 ml IV Total 683 ml 708 ml Output Urine Total 150 ml # Bowel Movements 1 1 (Patti Hernandez MD R2) Result Diagram: 08/29/16 0549 08/29/16 0549 Objective Remarks Vitals: O2: 98% on room air GENERAL: This is a well-nourished, well-developed patient, in no respiratory distress. Speaking in full sentences CARDIOVASCULAR: Very distant heart sounds without obvious murmur gallops or rubs. RESPIRATORY: Diffuse wheezing throughout all lung thomas. GASTROINTESTINAL: Abdomen nondistended. MUSCULOSKELETAL: Extremities without clubbing, cyanosis, or edema. No calf tenderness. NEUROLOGICAL: Awake and alert. Motor and sensory grossly within normal limits. Normal speech. (Patti Hernandez MD R2) A/P Assessment and Plan Patient is a 60 y/o male smoker with a hx of COPD who was admitted for COPD exacerbation. Discharge Planning Tomorrow pending improvement in respiratory status * DC on steroid taper and doxy x5days due to prior Levaquin use sdw Dr. Maguire, Dr. Jose Lauren, and Dr. Richard (Patti Hernandez MD R2) Attending Attestation Patient seen and examined with the resident team this am Case reviewed and discussed. Agree with plan of care as discussed with me and documented in the resident note. (Liliya Maguire MD) Problem List: (1) Acute exacerbation of chronic obstructive pulmonary disease (COPD) Status: Acute Plan: Extensive smoking history and multiple prior admissions for similar symptoms. No history of intubation. Episode likely due to poor PCP follow up and medication compliance. Initially required Bipap in the ED but has been weaned to room air. CXR suggestive of obstructive pulmonary disease. -goal O2 >88%, wean off of oxygen -Bedside PFTs ordered -Incentive spirometry and acapella -ACS evaluation negative -PT recommended cardiopulmonary rehab as outpatient * was able to participate in PT without oxygen and maintain sats at 90 or above -Provided smoking cessation counseling Medications: * albuterol and duonebs * Symbicort * discontinued Prednisone * Solumedrol 40mg IV q8hr * Rocephin (08/28- * Azithromycin 500mg x1 then 250mg (08/28- * Levaquin discontinued (08/28) (2) Acute hyperkalemia Status: Resolved Plan: Incidentally found to have hyperkalemia to a high of 5.9. Treated with IV fluids and Kayexalate. Etiology unclear. EKG began to have elevated T waves but unremarkable otherwise. -Continue cardiac telemetry, discontinue 08/30/16 if hyperkalemia remains WNL (3) TRINITY (acute kidney injury) Status: Resolved Plan: Developed an TRINITY that had a creatinine bump from a low of 0.97 to high of 1.78. This has now resolved with IV fluids. May have been related to Lasix dose in the ED. (4) Hypertensive urgency Status: Resolved Plan: Had hypertensive urgency on admission which was treated with labetalol 20mg IV x1. BP has since normalized. Pt remains asymptomatic. (5) Poor compliance with medication Status: Acute Plan: Patient has not followed-up with PCP following last hospital admission. Case management consulted. (6) Smoking Status: Acute Plan: 40 year hx. Used to be heavy smoker, now 1/2 pack/day. * Nicotine patch * Smoking cessation counseling (7) Fluid, Electrolyte, Nutrition, Prophylaxis Status: Acute Plan: Fluids: none Electrolytes: see Hyperkalemia, see above Nutrition: Heart-healthy diet DVT Prophylaxis: Lovenox 40mg subQ q24hr GI Prophylaxis: Protonix 40mg daily PO (Patti Hernandez MD R2) Patti Hernandez MD R2 Aug 29, 2016 10:13 Liliya Maguire MD Aug 31, 2016 15:39
[2016-08-29] MEDS: methylPREDNISolone SOD SUCC 40 MG/1 ML VIAL IV PUSH SCH ×2 (12:08→18:33)
[2016-08-29] MEDS: ENOXAPARIN SODIUM 40 MG/0.4 ML SYRINGE SQ SCH (12:09)
[2016-08-29] MEDS ORDERED: AZITHROMYCIN 250 MG TAB PO SCH (20:00)
[2016-08-29] MEDS: cefTRIAXone INJ 1,000 MG in SODIUM CHLORIDE 0.9% INJ 100 ML IV SCH (20:52)
[2016-08-29] MEDS: REMOVE OLD NICODERM (NICOTINE) PATCH T-DERMAL SCH (20:54)
[2016-08-30] VITALS: BP_SYST 140; BP_DIAS 93; BP_DIAS 95; PULSE 92; RESP 17; TEMP 97.1; O2SAT 95
[2016-08-30 04:00] VITALS: BP 136/88; PULSE 89; RESP 17; TEMP 97; O2SAT 94
[2016-08-30] MEDS: RESP: ALBUTEROL 2.5 MG/IPRATROPIUM 0.5 MG NEB (SCH) INH ×3 (04:01→12:00)
[2016-08-30 04:04] VITALS: O2SAT 94
[2016-08-30] MEDS: methylPREDNISolone SOD SUCC 40 MG/1 ML VIAL IV PUSH SCH (05:33)
[2016-08-30 07:47] VITALS: PULSE 87
[2016-08-30 08:00] VITALS: BP 155/97; PULSE 86; RESP 20; TEMP 97.3; O2SAT 95
[2016-08-30] MEDS: SODIUM CHLORIDE 0.9% FLUSH 10 ML FLUSH IV FLUSH SCH (08:45)
[2016-08-30] MEDS: NICOTINE 21 MG/24 HR PATCH TD SCH (08:46)
[2016-08-30] MEDS: PANTOPRAZOLE SOD 40 MG DELAYED RELEASE TAB PO SCH (08:46)
[2016-08-30] MEDS: BUDESONIDE-FORMOTEROL 160/4.5 MCG INHALER INH SCH (08:56)
[2016-08-30 09:35] LABS: BICARBONATE 27.6 MEQ/L (21.0-32.0); POTASSIUM 3.8 MEQ/L (3.5-5.1)
[2016-08-30] MEDS ORDERED: PANT40TA3 PO (10:31)
[2016-08-30] MEDS ORDERED: VENTAER INH (10:31)
[2016-08-30] MEDS ORDERED: PRED10PA PO (10:31)
[2016-08-30] MEDS ORDERED: SYMB160A INH (10:31)
[2016-08-30] MEDS ORDERED: DOXY100C PO (10:34)
--- NOTE | 2016-08-30 10:34 | HHI.FPPN ---
Subjective Remarks Patient was seen and examined this morning. He is feeling much better in regard to his breathing. He has been on room air since yesterday evening. He has been walking to the bathroom without shortness of breath. He states he is no longer wheezing. He is eating and drinking without difficulty. He has had a bowel movement in last 48 hours. His urine output per his report is normal. (Nurys Lauren MD R1) Objective Vitals Vital Signs Date Time Temp Pulse Resp B/P Pulse Ox O2 Delivery O2 Flow Rate FiO2 08/30/16 08:52 Room Air 08/30/16 08:00 97.3 86 20 155/97 95 08/30/16 04:04 94 21 08/30/16 04:00 97.0 89 17 136/88 94 08/30/16 00:00 97.1 92 17 140/95 95 08/29/16 23:28 95 21 08/29/16 23:03 72 08/29/16 23:01 Nasal Cannula 2.00 08/29/16 20:00 97.8 98 18 144/88 92 08/29/16 19:47 97 21 08/29/16 16:00 97.5 88 20 144/83 88 08/29/16 12:00 97.4 83 18 123/75 98 08/29/16 12:00 97.5 104 20 136/82 94 08/29/16 11:20 96 08/29/16 10:31 96 Room Air I/O 08/29/16 08/29/16 08/29/16 08/30/16 08/30/16 08/30/16 07:00 15:00 23:00 07:00 15:00 23:00 Intake Total 828 ml 1112 ml 200 ml 200 ml Output Total 150 ml 6 ml Balance 678 ml 1106 ml 200 ml 200 ml Intake Oral 120 ml 600 ml 200 ml 200 ml IV Total 708 ml 512 ml Output Urine Total 150 ml 6 ml # Voids 2 # Bowel Movements 1 1 (Nurys Lauren MD R1) Result Diagram: 08/29/16 0549 08/30/16 0645 Imaging Last Impressions Chest X-Ray 08/28/16 0825 Signed Impressions: Service Date/Time: Sunday, August 28, 2016 08:25 - CONCLUSION: 1. Changes suggestive of obstructive pulmonary disease. 2. No acute abnormality or significant interval change. Tom White MD Objective Remarks Vitals: O2: 94-95% on room air, afebrile the last 24 hours. BP [id number]/80s to 90s over last 24 hours GENERAL: This is a well-nourished, well-developed patient, in no respiratory distress. Speaking in full and sentences. On room air. CARDIOVASCULAR: Regular rate and rhythm without murmurs, gallops, or rubs. RESPIRATORY: Diffuse wheezing throughout all lung thomas, improved from yesterday. There are no crackles. GASTROINTESTINAL: Abdomen nondistended. Bowel sounds are normal. No tenderness to palpation. MUSCULOSKELETAL: Extremities without clubbing, cyanosis, or edema. No calf tenderness. INTEGUMENTARY: Scattered excoriations and papules again noted on the upper and lower extremities. NEUROLOGICAL: Awake and alert. Motor and sensory grossly within normal limits. Normal speech. Medications and IVs Inpatient Medications Acetaminophen (Tylenol) 650 mg Q6H PRN PO PAIN 1-10 AND/OR FEVER >101F Last administered on 08/28/16 11:35; Start 08/28/16 at 11:15 Albuterol Sulfate (Albuterol Neb) 2.5 mg Q2HR NEB PRN INH SHORTNESS OF BREATH; Start 08/28/16 at 10:45 Albuterol/ Ipratropium (Duoneb Neb) 1 ampule Q4HR NEB INH Last administered on 08/30/16 08:08; Start 08/28/16 at 12:00 Azithromycin (Zithromax) 250 mg DAILY@20 PO Last administered on 08/29/16 20:52 ; Start 08/29/16 at 20:00 Bisacodyl (Dulcolax Supp) 10 mg DAILY PRN RECTAL SEVERE CONSITIPATION; Start at 11:15 Budesonide/ Formoterol Fumarate (Symbicort 160-4.5 Inh) 2 puff Q12HR INH Last administered on 08/30/16 08:56; Start 08/28/16 at 21:00 Calcium Gluconate 1 gm/Sodium Chloride 110 ml @ 110 mls/hr ONCE ONCE IV Last administered on 08/28/16 17:46; Start 08/28/16 at 17:00; Stop 08/28/16 at 17:59; Status DC Ceftriaxone Sodium/Sodium Chloride (Rocephin Inj/NS Inj) 100 ml @ 200 mls/hr Q24H IV Last administered on 08/29/16 20:52; Start 08/28/16 at 22:00 Enoxaparin Sodium (Lovenox Inj) 40 mg Q24H SQ Last administered on 08/29/16 12: 09; Start 08/28/16 at 12:00 Furosemide (Lasix Inj) 40 mg ONCE ONCE IVP Last administered on 08/28/16 08:54 ; Start 08/28/16 at 08:45; Stop 08/28/16 at 08:47; Status DC Labetalol HCl (Trandate Inj) 20 mg ONCE ONCE IV PUSH Last administered on 08:34; Start 08/28/16 at 08:30; Stop 08/28/16 at 08:31; Status DC Lactulose (Lactulose Liq) 30 ml DAILY PRN PO SEVERE CONSITIPATION; Start at 11:15 Levofloxacin (Levaquin) 750 mg Q24H PO Last administered on 08/28/16 11:35; Start 08/28/16 at 12:00; Stop 08/29/16 at 06:21; Status DC Magnesium Hydroxide (Milk Of Magnesia Liq) 30 ml Q12H PRN PO MILD - MODERATE CONSTIPATION; Start 08/28/16 at 11:15 Methylprednisolone Sodium Succinate (SoluMEDROL INJ) 40 mg Q8H IV PUSH Last administered on 08/30/16 05:33; Start 08/29/16 at 11:00 Miscellaneous Information 1 HS T-DERMAL ; Start 08/28/16 at 21:00 Nicotine (Habitrol 21 Mg Patch.24 Hr) 1 patch DAILY TD Last administered on 08/30 08:46; Start 08/29/16 at 09:00 Ondansetron HCl (Zofran Inj) 4 mg Q6H PRN IVP NAUSEA OR VOMITING Last administered on 08/30/16 08:46; Start 08/28/16 at 11:15 Pantoprazole Sodium (Protonix) 40 mg DAILY PO Last administered on 08/30/16 08: 46; Start 08/29/16 at 09:00 Prednisone (Deltasone) 40 mg DAILY PO Last administered on 08/29/16 08:47; Start 08/29/16 at 09:00; Status Hold Senna/Docusate Sodium (Alyson-Colace) 1 tab BID PO ; Start 08/28/16 at 21:00; Status Hold Sennosides (Senokot) 17.2 mg Q12H PRN PO MODERATE - SEVERE CONSTIPATION; Start 08/28/16 at 11:15 Sodium Polystyrene Sulfonate 15 gm 15 gm ONCE ONCE PO Last administered on 08/28 17:50; Start 08/28/16 at 16:45; Stop 08/28/16 at 16:54; Status DC Sodium Chloride 1,000 ml @ 110 mls/hr Q9H6M IV Last administered on 08/29/16 06:15; Start 08/28/16 at 17:00; Stop 08/29/16 at 10:21; Status DC Sodium Chloride (NS Flush) 2 ml UNSCH PRN IV FLUSH FLUSH AFTER USING IV ACCESS ; Start 08/28/16 at 10:45 (Nurys Lauren MD R1) Urinary Catheter: No (Nurys Lauren MD R1) Vascular Central Line Catheter: No (Nurys Lauren MD R1) A/P Assessment and Plan Patient is a 60 y/o male smoker with a hx of COPD who was admitted for COPD exacerbation. Discharge Planning Patient to be discharged today to home. He will follow up closely with Dr. Garner (his target aircraft technician) as well as the PCP within one week. * DC on steroid taper and doxy x5days due to prior Levaquin use sdw Dr. Maguire and Dr. Richard (Nurys Lauren MD R1) Attending Attestation Patient seen and examined with the resident team this am Case reviewed and discussed. Agree with plan of care as discussed with me and documented in the resident note. (Liliya Maguire MD) Problem List: (1) Acute exacerbation of chronic obstructive pulmonary disease (COPD) Status: Acute Plan: Symptoms have significantly improved since admission. On room air at discharge, without shortness of breath with ambulation. Discharge home as above Hospital course: Extensive smoking history and multiple prior admissions for similar symptoms. No history of intubation. Episode likely due to poor PCP follow up and medication compliance. Initially required Bipap in the ED but has been weaned to room air. CXR suggestive of obstructive pulmonary disease. -goal O2 >88%, weaned off of oxygen -Bedside PFTs ordered, not completed. He may complete these as outpatient -Incentive spirometry and acapella -ACS evaluation negative -PT recommended cardiopulmonary rehab as outpatient * was able to participate in PT without oxygen and maintain sats above 90% -Provided smoking cessation counseling resources including number for smoking cessation hotline Medications: * albuterol and duonebs every 4 hours * Symbicort q12hr inhaler * Solu-Medrol 125 mg IV 1 in ED on 08/28 * Started on prednisone 40 mg by mouth daily on 08/29, increased to Solumedrol 40mg IV q8hr on 08/29 due to continued shortness of breath * Will be discharged with prednisone taper 7 days as well as prophylactic PPI * Rocephin (08/28-08/29) * Azithromycin 500mg x1 then 250mg (08/28-08/29) * Levaquin discontinued (08/28) (2) Acute hyperkalemia Status: Resolved Plan: Incidentally found to have hyperkalemia to a high of 5.9. Treated with IV fluids and Kayexalate. Etiology unclear. EKG began to have elevated T waves but unremarkable otherwise. -Continue cardiac telemetry, discontinued 08/30/16 since hyperkalemia resolved (3) TRINITY (acute kidney injury) Status: Resolved Plan: Developed an TRINITY with a creatinine bump from a low of 0.97 to high of 1.78. Resolved next day after IV fluids. May have been related to Lasix dose in the ED. (4) Hypertensive urgency Status: Resolved Plan: Had hypertensive urgency on admission which was treated with labetalol 20mg IV x1. BP has since normalized. Pt remains asymptomatic. Patient was anxious at admission which may have been contributing to blood pressure. (5) Poor compliance with medication Status: Acute Plan: Patient has not followed-up with PCP following last hospital admission. Case management consulted, appreciate recommendations -He is to have close outpatient follow-up with pulmonology and PCP -His home medications were refilled (albuterol and Symbicort) -He is discharged on prednisone taper as well as antibiotics as above (6) Smoking Status: Acute Plan: 40+ pack year hx. Used to be heavy smoker, now 1/2 pack/day. * Nicotine patch, counseled to try to obtain free patches through Quit [place] program, given information directly while inpatient * Smoking cessation counseling (7) Fluid, Electrolyte, Nutrition, Prophylaxis Status: Acute Plan: Fluids: none Electrolytes: see Hyperkalemia, see above Nutrition: Heart-healthy diet DVT Prophylaxis: Lovenox 40mg subQ q24hr as inpatient. Ambulated throughout hospital stay GI Prophylaxis: Protonix 40mg daily PO (Nurys Lauren MD R1) Nurys Lauren MD R1 Aug 30, 2016 10:34 Liliya Maguire MD Aug 31, 2016 15:39
--- NOTE | 2016-08-30 10:36 | HHI.DCPOC ---
Discharge Care Plan Diagnosis: (1) HTN (hypertension) (2) COPD exacerbation (3) Hypertensive urgency (4) Smoking Goals to Promote Your Health * To prevent worsening of your condition and complications * To maintain your health at the optimal level Directions to Meet Your Goals Take your medications as prescribed. This includes doxycycline taken twice daily for 5 days, steroid taper (read directions carefully), as well as your Symbicort inhaler. Continue to use your albuterol inhaler as needed. If you need to use this more often than every 4 hours, call your tyre retreader or primary care physician. Follow your dietary instruction - we recommend a heart healthy diet. Follow activity as directed - continue to walk and exercise regularly. Keep your appointments as scheduled Take your immunizations and boosters as scheduled If your symptoms worsen call your PCP, if no PCP go to Urgent Care Center or Emergency Room Smoking is Dangerous to Your Health. Avoid second hand smoke Call the 24-hour hour crisis hotline for domestic abuse at Nurys Lauren MD R1 Aug 30, 2016 10:36 Liliya Maguire MD Aug 31, 2016 15:38
--- NOTE | 2016-08-30 11:27 | HHI.DS ---
Nurys Lauren MD R1 08/30/16 1127: Discharge Summary Admission Date Aug 28, 2016 at 09:59 Discharge Date: Aug 30, 2016 Admitting Diagnosis Respiratory distress Acute COPD exacerbation Malignant hypertension (1) Acute exacerbation of chronic obstructive pulmonary disease (COPD) Diagnosis: Principal Plan: Symptoms have significantly improved since admission. On room air at discharge, without shortness of breath with ambulation. Discharge home as above Hospital course: Extensive smoking history and multiple prior admissions for similar symptoms. No history of intubation. Episode likely due to poor PCP follow up and medication compliance. Initially required Bipap in the ED but has been weaned to room air. CXR suggestive of obstructive pulmonary disease. -goal O2 >88%, weaned off of oxygen -Bedside PFTs ordered, not completed. He may complete these as outpatient -Incentive spirometry and acapella -ACS evaluation negative -PT recommended cardiopulmonary rehab as outpatient * was able to participate in PT without oxygen and maintain sats above 90% -Provided smoking cessation counseling resources including number for smoking cessation hotline Medications: * albuterol and duonebs every 4 hours * Symbicort q12hr inhaler * Solu-Medrol 125 mg IV 1 in ED on 08/28 * Started on prednisone 40 mg by mouth daily on 08/29, increased to Solumedrol 40mg IV q8hr on 08/29 due to continued shortness of breath * Will be discharged with prednisone taper 7 days as well as prophylactic PPI * Rocephin (08/28-08/29) * Azithromycin 500mg x1 then 250mg (08/28-08/29) * Levaquin discontinued (08/28) (2) Acute hyperkalemia Diagnosis: Secondary Plan: Incidentally found to have hyperkalemia to a high of 5.9. Treated with IV fluids and Kayexalate. Etiology unclear. EKG began to have elevated T waves but unremarkable otherwise. -Continue cardiac telemetry, discontinued 08/30/16 since hyperkalemia resolved (3) TRINITY (acute kidney injury) Diagnosis: Secondary Plan: Developed an TRINITY with a creatinine bump from a low of 0.97 to high of 1.78. Resolved next day after IV fluids. May have been related to Lasix dose in the ED. (4) Hypertensive urgency Diagnosis: Secondary Plan: Had hypertensive urgency on admission which was treated with labetalol 20mg IV x1. BP has since normalized. Pt remains asymptomatic. Patient was anxious at admission which may have been contributing to blood pressure. (5) Poor compliance with medication Diagnosis: Principal Plan: Patient has not followed-up with PCP following last hospital admission. Case management consulted, appreciate recommendations -He is to have close outpatient follow-up with pulmonology and PCP -His home medications were refilled (albuterol and Symbicort) -He is discharged on prednisone taper as well as antibiotics as above (6) Smoking Diagnosis: Secondary Plan: 40+ pack year hx. Used to be heavy smoker, now 1/2 pack/day. * Nicotine patch, counseled to try to obtain free patches through [employer] retargeting program, given information directly while inpatient * Smoking cessation counseling (7) Fluid, Electrolyte, Nutrition, Prophylaxis Diagnosis: Principal Plan: Fluids: none Electrolytes: see Hyperkalemia, see above Nutrition: Heart-healthy diet DVT Prophylaxis: Lovenox 40mg subQ q24hr as inpatient. Ambulated throughout hospital stay GI Prophylaxis: Protonix 40mg daily PO Consultants None Brief History Patient is a 60 y/o male smoker with a hx of COPD who presents to the ED complaining of shortness of breath since yesterday afternoon. He states that he could hardly move and experienced shortness of breath with little walking around the house. He did not sleep. Patient admits to urinating on himself this morning; he attributes the event to anxiety. He admits to a dry, non-mucous, non -bloody cough. He admits to fatigue but denies fever or chills. He denies recent sick contacts. Patient was recently (07/27) admitted for an acute exacerbation of chronic COPD. Patient was discharged on Levaquin, Symbicort and Albuterol, which were filled, as well as a quick taper of prednisone, which was not filled by the patient. He did not follow-up with a PCP as he "is in-between doctors." He ran out of Albuterol yesterday; patient was using Albuterol x6/day for the past month. At baseline, patient is able to walk approximately 2 blocks. He does not require oxygen at home. He has never been intubated. At time of ED arrival, patient's systolic BP was 189, which was treated and, consequently, normalized. On admission, CXR shows no acute abnormality or significant interval change. EKG shows peaked t waves; potassium is elevated at 5.4 with repeat at 5.9. CBC/BMP: 08/29/16 0549 08/30/16 0645 Significant Findings Laboratory Tests Test 08/28/16 08/28/16 08/28/16 08/28/16 08:35 09:16 14:14 22:42 Monocytes (%) (Auto) 11.1 % (0.0-8.0) Eosinophils (%) (Auto) 10.7 % (0.0-4.0) Eosinophils # (Auto) 0.9 TH/MM3 (0-0.4) Sodium Level 133 MEQ/L 134 MEQ/L 132 MEQ/L (136-145) (136-145) (136-145) Potassium Level 5.4 MEQ/L 5.9 MEQ/L (3.5-5.1) (3.5-5.1) Estimat Glomerular Filtration 79 ML/MIN (>89) 58 ML/MIN (>89) 39 ML/MIN (>89) Rate Troponin I LESS THAN 0.02 LESS THAN 0.02 NG/ML NG/ML (0.02-0.05) (0.02-0.05) Arterial Blood pH 7.36 (7.380-7.420) Arterial Blood Partial 45 mmHg (38-42) Pressure CO2 Arterial Blood Partial 234 mmHG Pressure O2 (61-120) Arterial Blood Oxygen Content 21.1 Vol % (12.0-20.0) Blood Urea Nitrogen 24 MG/DL (7-18) 34 MG/DL (7-18) Random Glucose 128 MG/DL 334 MG/DL (74-106) (74-106) Creatine Kinase MB 5.7 NG/ML (0.5-3.6) Chloride Level 97 MEQ/L (98-107) Creatinine 1.78 MG/DL (0.60-1.30) Test 08/29/16 08/29/16 08/30/16 02:27 05:49 06:45 Urine Glucose (UA) 300 mg/dL (NEG) Urine Mucus FEW /lpf (OCC) Red Blood Count 4.10 MIL/MM3 (4.50-5.90) Neutrophils (%) (Auto) 83.3 % (16.0-70.0) Lymphocytes (%) (Auto) 7.2 % (9.0-44.0) Monocytes (%) (Auto) 9.4 % (0.0-8.0) Neutrophils # (Auto) 8.1 TH/MM3 (1.8-7.7) Lymphocytes # (Auto) 0.7 TH/MM3 (1.0-4.8) Blood Urea Nitrogen 29 MG/DL (7-18) 21 MG/DL (7-18) Estimat Glomerular Filtration 64 ML/MIN (>89) Rate Random Glucose 138 MG/DL 108 MG/DL (74-106) (74-106) Imaging Last Impressions Chest X-Ray 08/28/16 0815 Signed Impressions: Service Date/Time: Sunday, August 28, 2016 08:25 - CONCLUSION: 1. Changes suggestive of obstructive pulmonary disease. 2. No acute abnormality or significant interval change. Tom White MD PE at Discharge Vitals: O2: 94-95% on room air, afebrile the last 24 hours. BP [id number]/80s to 90s over last 24 hours GENERAL: This is a well-nourished, well-developed patient, in no respiratory distress. Speaking in full and sentences. On room air. CARDIOVASCULAR: Regular rate and rhythm without murmurs, gallops, or rubs. RESPIRATORY: Diffuse wheezing throughout all lung thomas, improved from yesterday. There are no crackles. GASTROINTESTINAL: Abdomen nondistended. Bowel sounds are normal. No tenderness to palpation. MUSCULOSKELETAL: Extremities without clubbing, cyanosis, or edema. No calf tenderness. INTEGUMENTARY: Scattered excoriations and papules again noted on the upper and lower extremities. NEUROLOGICAL: Awake and alert. Motor and sensory grossly within normal limits. Normal speech. Hospital Course Patient is a 60-year-old male with a history significant for COPD who presented an acute COPD exacerbation, characterized by shortness of breath, cough, and anxiety. He is noted to be poorly adherent to medical management and was last seen as an inpatient within the last month. There was a low suspicion for other diagnoses including PE and ACS given clinical exam and history. Initial interventions included oxygen by nasal cannula, escalated to BiPAP for short period of time. He was placed on Ventimask prior to being transferred to a [facility] floor for inpatient management of his COPD exacerbation. In the ED he also received routine lab workup including BNP which was unremarkable, chest x- ray which was notable for significant air trapping but no infection, and EKG which was unremarkable. He did not have a leukocytosis. He received Solu-Medrol 125 mg 1 in the ED. Antibiotics, specifically Levaquin was initiated in the ED and patient was eventually transitioned to Rocephin and azithromycin for CAP coverage given he was recently started on Levaquin as outpatient with no significant clinical improvement. He was continued on IV steroids for 24 hours significant clinical improvement including weaning off of nasal cannula to room air on 08/29/16. He noted symptomatic improvement and was able to walk without shortness of breath for at least 12 hours prior to discharge. ACS rule out with EKGs and cardiac enzymes 2 were negative. BNP was 6. Of note, patient had notable hyperkalemia on admission which increased on a timed repeat. EKG was noted to have peaked T waves and patient was thus placed on telemetry for close monitoring. He was given Kayexalate and calcium gluconate 1 on 08/28 with repeat BMPs showing resolution of hyperkalemia over the subsequent 48 hours. He was counseled extensively on smoking cessation given the number to the tobacco quit hotline for [place]. He was given instruction to follow up closely with his electronic heat seal operator as well as PCP within the next 1-2 weeks. He was given scripts for his home medications (Symbicort, albuterol) as well as doxycycline to continue a 5 day course. He was also given a steroid taper by mouth. He was discharged in stable condition. Pt Condition on Discharge: Stable Discharge Disposition: Discharge Home Discharge Instructions DIET: Follow Instructions for: Heart Healthy Diet Activities you can perform: Regular-No Restrictions Follow up Referrals: PCP Follow-up - 2 Weeks Pulmonology - 1 Week with Chalino Martin MD New Orders: Pulmonary Rehab - 1 Month New Medications: Albuterol 18 GM Inh (Ventolin Hfa 18 GM Inh) 90 Mcg/Act Aer 2 PUFF INH Q4-6H Two puffs every 4-6 hrs as needed for shortness of breath or wheezing. If you need to use more often, call your doctor. PRN SHORTNESS OF BREATH #1 Ref 1 INHALER Doxycycline Hyclate (Doxycycline Hyclate) 100 Mg Cap 100 MG PO BID Infection #10 Ref 0 CAP Prednisone (21) 10 mg tab Dose Pack (Prednisone (21) 10 mg tab Dose Pack) 10 Mg Pack 10 MG PO DIRECTED Take 2 pills twice daily for 3 days, then 1 pill twice daily for 3 days, then 1 pill once daily for 3 days, then stop. Inflammation #1 Ref 0 DSPK Pantoprazole (Pantoprazole) 40 Mg Tab 40 MG PO DAILY #30 TAB Continued Medications: Budesonide-Formoterol Inh (Symbicort Inh) 160-4.5 Mcg/Act Aero 2 PUFF INH Q12HR COPD #1 INHALER (This prescription has been renewed) Discontinued Medications: Prednisone (Prednisone) 20 Mg Tab 20 MG PO BID Take 3 tablets daily x 3 days, then 2 tablets x 3 days then 1 tab x 3 days then stop. COPD #20 Ref 0 TAB Liliya Maguire MD 08/31/16 1538: Discharge Summary CBC/BMP: 08/29/16 0549 08/30/16 0645 Discharge Instructions Follow up Referrals: PCP Follow-up - 2 Weeks Pulmonology - 1 Week with Chalino Martin MD New Orders: Pulmonary Rehab - 1 Month New Medications: Albuterol 18 GM Inh (Ventolin Hfa 18 GM Inh) 90 Mcg/Act Aer 2 PUFF INH Q4-6H Two puffs every 4-6 hrs as needed for shortness of breath or wheezing. If you need to use more often, call your doctor. PRN SHORTNESS OF BREATH #1 Ref 1 INHALER Doxycycline Hyclate (Doxycycline Hyclate) 100 Mg Cap 100 MG PO BID Infection #10 Ref 0 CAP Prednisone (21) 10 mg tab Dose Pack (Prednisone (21) 10 mg tab Dose Pack) 10 Mg Pack 10 MG PO DIRECTED Take 2 pills twice daily for 3 days, then 1 pill twice daily for 3 days, then 1 pill once daily for 3 days, then stop. Inflammation #1 Ref 0 DSPK Pantoprazole (Pantoprazole) 40 Mg Tab 40 MG PO DAILY #30 TAB Continued Medications: Budesonide-Formoterol Inh (Symbicort Inh) 160-4.5 Mcg/Act Aero 2 PUFF INH Q12HR COPD #1 INHALER (This prescription has been renewed) Discontinued Medications: Prednisone (Prednisone) 20 Mg Tab 20 MG PO BID Take 3 tablets daily x 3 days, then 2 tablets x 3 days then 1 tab x 3 days then stop. COPD #20 Ref 0 TAB Nurys Lauren MD R1 Aug 30, 2016 11:27 Liliya Maguire MD Aug 31, 2016 15:38
[2016-08-30] MEDS: ENOXAPARIN SODIUM 40 MG/0.4 ML SYRINGE SQ SCH (11:43)
[2016-08-30 12:00] VITALS: BP 172/94; PULSE 91; RESP 20; TEMP 97.4; O2SAT 92
== END 2016-08-30 13:50 | disposition home or self-care (01) | DRG 191 ==
LOC: NEPC 08:17 → NEDH 09:59 → N04B 12:31
PROVIDERS: ADMIT Family Medicine; ATTEND Family Medicine
PROC: 5A09357 Assistance with Respiratory Ventilation, Less than 24 Consecutive Hours, Continuous Positive Airway Pressure (ICD-10-PCS; principal; 2016-08-28)
DX: J44.1 Chronic obstructive pulmonary disease with (acute) exacerbation (principal); N17.9 Acute kidney failure, unspecified; E87.5 Hyperkalemia; I16.0 Hypertensive urgency; I10 Essential (primary) hypertension; Z91.14 Patient's other noncompliance with medication regimen; F17.210 Nicotine dependence, cigarettes, uncomplicated
CPT/HCPCS: 36600; 71010; 80048; 80053; 81001; 82550; 82552; 82805; 83735; 83880; 84484; 85025; 85610; 87449; 93005; 94002; 94060; 94150; 94640; 94664; 94667; 94668; 96374; 96375; J0330; J0610; J0696; J1650; J1940; J2405; J2920; J2930; J7030; J7512

== ENCOUNTER 2016-10-23 06:32 | Emergency (ER) | payer MEDICARE ==
[~2016-10-23 06:32] MED LIST changes: +DOXY100C PO; +PANT40TA3 PO; +PRED10PA PO; -PRED20 PO; -levaquin PO
[2016-10-23 06:36] VITALS: BP 135/87; PULSE 116; RESP 36; TEMP 98.3; O2SAT 96
[2016-10-23] MEDS ORDERED: RESP: ALBUTEROL 2.5 MG/IPRATROPIUM 0.5 MG NEB (SCH) INH ONE (07:00)
[2016-10-23] MEDS ORDERED: methylPREDNISolone SOD SUCC 125 MG/2 ML VIAL IVP ONE (07:00)
[2016-10-23] MEDS ORDERED: SODIUM CHLORIDE 0.9% FLUSH 10 ML FLUSH IVF PRN (07:00)
--- NOTE | 2016-10-23 07:02 | PD ---
HPI Chief Complaint: Respiratory Distress Time Seen by Provider: 06:58 Travel History International Travel<30 days: No Contact w/Intl Traveler<30days: No Traveled to known affect area: No History of Present Illness HPI This is a 60-year-old male with a history of COPD, who presents today with complaint of cough with yellow-green phlegm and shortness of breath. The patient states that it started yesterday. He states the day before he felt great. He reports yesterday he started having this cough with productive yellow -green phlegm. He denies any fevers, chills. He does report dyspnea on exertion. He denies any chest pain, chest pressure. There are no other complaints time my examination. The patient does report that he ran out of his Ventolin metered-dose inhaler. PFSH Past Medical History Arthritis: No Asthma: Yes Autoimmune Disease: No Blood Disorders: No Anxiety: Yes Depression: No Heart Rhythm Problems: Yes (skip beat, pt on Diltiazem) Cancer: No Cardiovascular Problems: Yes High Cholesterol: No Chemotherapy: No Chest Pain: No Congestive Heart Failure: No COPD: Yes Cerebrovascular Accident: No Coronary Artery Disease: Yes Diabetes: No Diminished Hearing: No Endocrine: No Gastrointestinal Disorders: Yes (NUMEROUS GI SERIES, ENDOSCOPY) GERD: Yes Glaucoma: No Genitourinary: No Headaches: No Hepatitis: Yes (HEP A IN HIGH SCHOOL) Hiatal Hernia: No Hypertension: Yes Immune Disorder: No Kidney Stones: No Musculoskeletal: No Neurologic: No Psychiatric: No Reproductive: No Respiratory: Yes Immunizations Current: No Migraines: No Myocardial Infarction: No Pneumonia: Yes Radiation Therapy: No Renal Failure: No Seizures: No Sickle Cell Disease: No Sleep Apnea: No Thyroid Disease: No Ulcer: No Past Surgical History Abdominal Surgery: Yes ( UPPER GI) AICD: No Appendectomy: No Arteriovenous Shunt: No Cardiac Surgery: No Cholecystectomy: No Ear Surgery: No Endocrine Surgery: No Eye Surgery: No Genitourinary Surgery: No Gynecologic Surgery: No Insulin Pump: No Joint Replacement: No Oral Surgery: No Pacemaker: No Thoracic Surgery: Yes (CHEST TUBE RIGHT SIDE/ COLLAPSED LUNG 2012) Other Surgery: Yes Social History Alcohol Use: Yes (RARELY) Tobacco Use: Yes (1/2 PPD) Substance Use: No Allergies-Medications (Allergen,Severity, Reaction): Coded Allergies: codeine (Unverified Adverse Reaction, Mild, HEART SKIPPS BEAT., 10/23/16) Reported Meds & Prescriptions Reported Meds & Active Scripts Active Ventolin Hfa 18 GM Inh (Albuterol Sulfate) 90 Mcg/Act Aer 2 Puff INH Q4-6H PRN Two puffs every 4-6 hrs as needed for shortness of breath or wheezing. If you need to use more often, call your doctor. Symbicort Inh (Budesonide/Formoterol Fumarate) 160-4.5 Mcg/Act Aero 2 Puff INH Q12HR Review of Systems Except as stated in HPI: all other systems reviewed are Neg General / Constitutional: No: Fever, Chills HENT: No: Headaches, Neck Pain Cardiovascular: No: Chest Pain or Discomfort, Palpitations Respiratory: Positive: Cough, Shortness of Breath, Wheezing Gastrointestinal: No: Nausea, Vomiting, Abdominal Pain Musculoskeletal: No: Myalgias, Weakness Neurologic: No: Weakness, Headache Physical Exam Narrative GENERAL: Well-developed well-nourished gentleman in mild respiratory discomfort. SKIN: Focused skin assessment warm/dry. HEAD: Atraumatic. Normocephalic. EYES: No scleral icterus. No injection or drainage. ENT: No nasal bleeding or discharge. Mucous membranes pink and moist. NECK: Trachea midline. Supple. CARDIOVASCULAR: Tachycardic with a rate of 110. Normal rhythm. No murmur appreciated. RESPIRATORY: No accessory muscle use. Bilateral axillary wheezes in all 4 lung thomas. No Rales appreciated. GASTROINTESTINAL: Abdomen soft, non-tender, nondistended. Hepatic and splenic margins not palpable. MUSCULOSKELETAL: No obvious deformities. No clubbing. No cyanosis. No edema. NEUROLOGICAL: Awake and alert. No obvious cranial nerve deficits. Motor grossly within normal limits. Normal speech. PSYCHIATRIC: Appropriate mood and affect; insight and judgment normal. Data Data Last Documented VS Vital Signs Date Time Temp Pulse Resp B/P (MAP) Pulse Ox O2 Delivery O2 Flow Rate FiO2 10/23/16 09:31 102 16 129/85 (100) 95 Nasal Cannula 2.00 10/23/16 06:36 98.3 Orders Orders Complete Blood Count With Diff (10/23/16 06:58) Comprehensive Metabolic Panel (10/23/16 06:58) Arterial Blood Gas (Abg) (10/23/16 06:58) Iv Access Insert/Monitor (10/23/16 06:58) Ecg Monitoring (10/23/16 06:58) Oximetry (10/23/16 06:58) Oxygen Administration (10/23/16 06:58) Chest, Pa & Lat (10/23/16 06:58) Sodium Chloride 0.9% Flush (Ns Flush) (10/23/16 07:00) Methylprednisolone So Succ Inj (Solumedr (10/23/16 07:00) Albuterol-Ipratropium Neb (Duoneb Neb) (10/23/16 07:00) Albuterol Neb (Albuterol Neb) (10/23/16 07:00) Doxycycline (Vibramycin) (10/23/16 09:30) Labs Laboratory Tests Test 10/23/16 07:05 10/23/16 07:15 White Blood Count 9.4 TH/MM3 Red Blood Count 4.18 MIL/MM3 Hemoglobin 13.7 GM/DL Hematocrit 40.8 % Mean Corpuscular Volume 97.6 FL Mean Corpuscular Hemoglobin 32.8 PG Mean Corpuscular Hemoglobin Concent 33.6 % Red Cell Distribution Width 15.7 % Platelet Count 296 TH/MM3 Mean Platelet Volume 8.3 FL Neutrophils (%) (Auto) 59.9 % Lymphocytes (%) (Auto) 19.4 % Monocytes (%) (Auto) 15.8 % Eosinophils (%) (Auto) 4.0 % Basophils (%) (Auto) 0.9 % Neutrophils # (Auto) 5.6 TH/MM3 Lymphocytes # (Auto) 1.8 TH/MM3 Monocytes # (Auto) 1.5 TH/MM3 Eosinophils # (Auto) 0.4 TH/MM3 Basophils # (Auto) 0.1 TH/MM3 CBC Comment DIFF FINAL Differential Comment Blood Urea Nitrogen 9 MG/DL Creatinine 1.01 MG/DL Random Glucose 131 MG/DL Total Protein 7.9 GM/DL Albumin 3.7 GM/DL Calcium Level 8.9 MG/DL Alkaline Phosphatase 90 U/L Aspartate Amino Transf (AST/SGOT) 47 U/L Alanine Aminotransferase (ALT/SGPT) 55 U/L Total Bilirubin 0.2 MG/DL Sodium Level 139 MEQ/L Potassium Level 3.8 MEQ/L Chloride Level 106 MEQ/L Carbon Dioxide Level 26.6 MEQ/L Anion Gap 6 MEQ/L Estimat Glomerular Filtration Rate 75 ML/MIN Blood Gas Puncture Site RT RADIAL Blood Gas Patient Temperature 21 Blood Gas HCO3 26 mmol/L Blood Gas Base Excess 1.7 mmol/L Blood Gas Oxygen Saturation 92 % Arterial Blood pH 7.41 Arterial Blood Partial Pressure CO2 42 mmHg Arterial Blood Partial Pressure O2 69 mmHG Arterial Blood Oxygen Content 17.5 Vol % Arterial Blood Carboxyhemoglobin 1.5 % Arterial Blood Methemoglobin 0.6 % Blood Gas Hemoglobin 13.5 G/DL MDM Medical Decision Making Medical Screen Exam Complete: Yes Emergency Medical Condition: Yes Differential Diagnosis COPD exacerbation versus bronchitis versus pneumonia versus Narrative Course 60-year-old male with history of COPD, tobacco use, presents today with complaints of shortness of breath, wheezing and productive cough. The patient is satting above 94%. He is in no acute distress. Chest x-ray shows no acute infiltrate. White count is normal. He'll be discharged with a prescription for doxycycline twice a day 10 days. He'll also be given refills for His Symbicourt, Ventolin. He'll be started on a Medrol Dosepak. He is instructed to follow up with his tourist camp attendant and primary care physician. He is also instructed to stop smoking. Diagnosis Primary Impression: Bronchitis Additional Impression: Tobacco abuse Additional Instructions: Stop smoking cigarettes. Follow up with her tourist camp attendant and primary care physician. Return if feeling worse. Med/Other Pt SpecificInfo: Prescription(s) given Scripts Methylprednisolone Dosepak (Medrol Dosepak) 4 Mg Dspk 4 MG PO DIRECTED, #1 DSPK 0 Refills Per Pharmacist direction Prov: Ki Morales MD 10/23/16 Doxycycline Hyclate (Doxycycline Hyclate) 100 Mg Cap 100 MG PO BID for Infection, #20 CAP 0 Refills Prov: Ki Morales MD 10/23/16 Albuterol 18 GM Inh (Ventolin Hfa 18 GM Inh) 90 Mcg/Act Aer 2 PUFF INH Q4-6H Y for SHORTNESS OF BREATH, #1 INHALER 1 Refill Two puffs every 4-6 hrs as needed for shortness of breath or wheezing. If you need to use more often, call your doctor. Prov: Ki Morales MD 10/23/16 Budesonide-Formoterol Inh (Symbicort Inh) 160-4.5 Mcg/Act Aero 2 PUFF INH Q12HR for COPD, #1 INHALER Prov: Ki Morales MD 10/23/16 Disposition: 01 DISCHARGE HOME Condition: Stable Ki Morales MD Oct 23, 2016 07:02
[2016-10-23 07:04] VITALS: BP 105/78; PULSE 109; RESP 24; O2SAT 96
[2016-10-23] MEDS: RESP: ALBUTEROL 2.5 MG/3 ML NEB (SCH) INH (07:12)
[2016-10-23 07:15] VITALS: O2SAT 94
[2016-10-23 07:20] LABS: AUTOMATED NEUTROPHIL # 5.6 TH/MM3 (1.8-7.7); BASOPHIL # 0.1 TH/MM3 (0-0.2); BASOPHIL % 0.9 % (0.0-2.0); EOSINOPHIL # 0.4 TH/MM3 (0-0.4); HEMATOCRIT 40.8 % (39.0-51.0); HEMO FLAGS DIFF FINAL; LYMPH % 19.4 % (9.0-44.0); LYMPHOCYTE # 1.8 TH/MM3 (1.0-4.8); MEAN CELL VOLUME 97.6 FL (80.0-100.0); MEAN CORPUSCULAR HEMOGLOBIN 32.8 PG (27.0-34.0); MEAN CORPUSCULAR HGB CONC 33.6 % (32.0-36.0); MONO % 15.8 % (0.0-8.0); NEUT % 59.9 % (16.0-70.0); PLATELET COUNT 296 TH/MM3 (150-450); RED BLOOD COUNT 4.18 MIL/MM3 (4.50-5.90); RED CELL DISTRIBUTION WIDTH 15.7 % (11.6-17.2); WHITE BLOOD COUNT 9.4 TH/MM3 (4.0-11.0)
[2016-10-23 07:28] LABS: BLOOD GAS BASE EXCESS 1.7 mmol/L (-2-2); BLOOD GAS CARBOXYHEMOGLOBIN 1.5 % (0-4); BLOOD GAS HCO3 26 mmol/L (22-26); BLOOD GAS METHEMOGLOBIN 0.6 % (0-2); BLOOD GAS O2 HGB SATURATION 92 % (90-100); BLOOD GAS OXYGEN CONTENT 17.5 Vol % (12.0-20.0); BLOOD GAS PCO2 42 mmHg (38-42); BLOOD GAS PO2 69 mmHG (61-120); BLOOD GAS TOTAL HGB 13.5 G/DL (12.0-16.0); CRITICAL VALUE NO; DRAW SITE RT RADIAL; NUMBER OF ARTERIAL PUNCTURES 1; STAT YES; TEMP CORR TO 21; ULNAR PULSE PRESENT
[2016-10-23 07:37] LABS: ALT (GPT) 55 U/L (12-78); ANION GAP 6 MEQ/L (5-15); AST (GOT) 47 U/L (15-37); BICARBONATE 26.6 MEQ/L (21.0-32.0); BLOOD UREA NITROGEN 9 MG/DL (7-18); CHLORIDE 106 MEQ/L (98-107); GLOMERULAR FILTRATION RATE 75 ML/MIN (>89); POTASSIUM 3.8 MEQ/L (3.5-5.1); SODIUM (NA) 139 MEQ/L (136-145)
[2016-10-23 07:40] LABS: ALKALINE PHOSPHATASE 90 U/L (45-117); TOTAL BILIRUBIN ADULT 0.2 MG/DL (0.2-1.0)
--- NOTE | 2016-10-23 08:30 | RADRPT ---
EXAM DATE/TIME: 10/23/2016 08:15 [facility] COMPARISON: CHEST PA & LAT, February 09, 2015, 7:55. INDICATIONS : Patient complains of shortness of breath with history of COPD . MEDICAL HISTORY : Chronic obstructive pulmonary disease. Hypertension Diabetes mellitus type SURGICAL HISTORY : None. Right pnx 5 years ago ENCOUNTER: Initial ACUITY: 1 day PAIN SCORE: 4/10 LOCATION: Bilateral upper chest FINDINGS: PA and lateral views of the chest show the lungs to be hyperaerated. Bilateral apical pleural thicken ing more pronounced on the left. No acute infiltrate or effusion. The heart is normal in size. Bony s tructures are unremarkable. CONCLUSION: Hyperinflation suggesting COPD. No acute infiltrate or effusion. Matthew Lawler Jr., MD on October 23, 2016 at 8:28 Board Certified Radiologist. This report was verified electronically.
[2016-10-23 08:43] VITALS: BP 129/85; PULSE 101; RESP 16; O2SAT 96
[2016-10-23] MEDS ORDERED: SYMB160A INH (09:29)
[2016-10-23] MEDS ORDERED: VENTAER INH (09:29)
[2016-10-23] MEDS ORDERED: DOXYCYCLINE HYCLATE 100 MG CAP PO ONE (09:30)
[2016-10-23] MEDS ORDERED: AZITHROMYCIN 250 MG TAB PO ONE (09:30)
[2016-10-23 09:31] VITALS: BP 129/85; PULSE 102; RESP 16; O2SAT 95
[2016-10-23] MEDS ORDERED: DOXY100C PO (09:32)
[2016-10-23] MEDS ORDERED: MEDR4PAK PO (09:32)
== END 2016-10-23 10:49 | disposition home or self-care (01) ==
LOC: NEPE 06:32
DX: J40 Bronchitis, not specified as acute or chronic (principal); I10 Essential (primary) hypertension; F17.200 Nicotine dependence, unspecified, uncomplicated; Z87.09 Personal history of other diseases of the respiratory system; Z86.79 Personal history of other diseases of the circulatory system; Z87.19 Personal history of other diseases of the digestive system
CPT/HCPCS: 36600; 71020; 80053; 82805; 85025; 94664; 96374; 99285; J2930; J7613

== ENCOUNTER 2016-12-27 09:12 | Emergency (ER) | payer MEDICARE ==
[~2016-12-27] VITALS: Ht 175.3 cm; Wt 70.0 kg
[~2016-12-27 09:12] MED LIST changes: +MEDR4PAK PO; -PANT40TA3 PO; -PRED10PA PO
[2016-12-27 09:22] VITALS: BP 147/86; PULSE 49; PULSE 86; RESP 18; TEMP 98.2; O2SAT 98
[2016-12-27] MEDS ORDERED: SODIUM CHLORIDE 0.9% FLUSH 10 ML FLUSH IVF PRN (10:30)
[2016-12-27] MEDS ORDERED: methylPREDNISolone SOD SUCC 125 MG/2 ML VIAL IV PUSH ONE (10:30)
[2016-12-27] MEDS ORDERED: AZITHROMYCIN 250 MG TAB PO ONE (10:30)
[2016-12-27] MEDS: RESP: ALBUTEROL 2.5 MG/IPRATROPIUM 0.5 MG NEB (SCH) INH (10:40)
--- NOTE | 2016-12-27 10:45 | RADRPT ---
EXAM DATE/TIME: 12/27/2016 10:31 [facility] COMPARISON: CHEST PA & LAT, October 23, 2016, 8:15. INDICATIONS : Shortness of breath with cough. MEDICAL HISTORY : Chronic obstructive pulmonary disease. SURGICAL HISTORY : None. ENCOUNTER: Initial ACUITY: 2 days PAIN SCORE: 0/10 LOCATION: Bilateral chest FINDINGS: Moderate hyperinflation without infiltrate, pneumothorax or failure. Minimal increase in parenchymal changes apex left lung nonspecific. The heart and pulmonary vascularity are normal. CONCLUSION: Hyperinflation, minimal increase parenchymal changes left apex, negative for active i nfiltrate. Edenilson English MD FACR on December 27, 2016 at 10:42 Board Certified Radiologist. This report was verified electronically.
[2016-12-27 10:58] LABS: AUTOMATED NEUTROPHIL # 3.1 TH/MM3 (1.8-7.7); BASOPHIL # 0.1 TH/MM3 (0-0.2); BASOPHIL % 0.8 % (0.0-2.0); EOSINOPHIL # 0.6 TH/MM3 (0-0.4); EOSINOPHIL % 8.9 % (0.0-4.0); HEMO FLAGS DIFF FINAL; LYMPH % 30.2 % (9.0-44.0); LYMPHOCYTE # 1.9 TH/MM3 (1.0-4.8); MEAN CELL VOLUME 97.8 FL (80.0-100.0); MEAN CORPUSCULAR HEMOGLOBIN 34.2 PG (27.0-34.0); MEAN CORPUSCULAR HGB CONC 34.9 % (32.0-36.0); MONO % 11.9 % (0.0-8.0); NEUT % 48.2 % (16.0-70.0); PLATELET COUNT 208 TH/MM3 (150-450); RED BLOOD COUNT 3.99 MIL/MM3 (4.50-5.90); RED CELL DISTRIBUTION WIDTH 15.4 % (11.6-17.2); WHITE BLOOD COUNT 6.4 TH/MM3 (4.0-11.0)
[2016-12-27 11:19] LABS: ALKALINE PHOSPHATASE 75 U/L (45-117); TOTAL BILIRUBIN ADULT 0.4 MG/DL (0.2-1.0)
[2016-12-27 11:26] LABS: ALT (GPT) 49 U/L (12-78); ANION GAP 9 MEQ/L (5-15); AST (GOT) 63 U/L (15-37); BICARBONATE 25.2 MEQ/L (21.0-32.0); BLOOD UREA NITROGEN 9 MG/DL (7-18); CHLORIDE 100 MEQ/L (98-107); GLOMERULAR FILTRATION RATE 94 ML/MIN (>89); POTASSIUM 4.7 MEQ/L (3.5-5.1); SODIUM (NA) 134 MEQ/L (136-145)
[2016-12-27] MEDS ORDERED: AZIT250T3 PO (12:09)
[2016-12-27] MEDS ORDERED: VENTAER INH (12:09)
[2016-12-27] MEDS ORDERED: PRED-503 PO (12:09)
--- NOTE | 2016-12-27 12:11 | PD ---
HPI Chief Complaint: Respiratory Distress Time Seen by Provider: 10:16 Travel History International Travel<30 days: No Contact w/Intl Traveler<30days: No Traveled to known affect area: No History of Present Illness HPI This 61-year-old man who presents emergency room complaining of shortness of breath and congestion is been ongoing for the past 3 days or so. Symptoms been gradually worsening. No fevers. He otherwise has been feeling generally well. His a history of COPD/asthma. States she's been out of his inhalers. History Past Medical History Narrative Medical COPD/asthma Hypertension Social History Alcohol Use: Yes (RARELY) Tobacco Use: Yes (I CIG DAY ) Allergies-Medications (Allergen,Severity, Reaction): Coded Allergies: codeine (Unverified Adverse Reaction, Mild, HEART SKIPPS BEAT., 10/23/16) Reported Meds & Prescriptions Reported Meds & Active Scripts Active Ventolin Hfa 18 GM Inh (Albuterol Sulfate) 90 Mcg/Act Aer 2 Puff INH Q4-6H PRN Two puffs every 4-6 hrs as needed for shortness of breath or wheezing. If you need to use more often, call your doctor. Symbicort Inh (Budesonide/Formoterol Fumarate) 160-4.5 Mcg/Act Aero 2 Puff INH Q12HR Review of Systems Except as stated in HPI: all other systems reviewed are Neg Physical Exam Narrative GENERAL: Well-appearing 61-year-old man, no acute distress. SKIN: Focused skin assessment warm/dry. HEAD: Atraumatic. Normocephalic. EYES: Pupils equal and round. No scleral icterus. No injection or drainage. ENT: No nasal bleeding or discharge. Mucous membranes pink and moist. NECK: Trachea midline. No JVD. CARDIOVASCULAR: Regular rate and rhythm. No murmur appreciated. RESPIRATORY: Coarse breath sounds at posterior lung thomas. Normal rate and effort. Moderate diffuse wheezing. GASTROINTESTINAL: Abdomen soft, non-tender, nondistended. Hepatic and splenic margins not palpable. MUSCULOSKELETAL: No obvious deformities. No edema. NEUROLOGICAL: Awake and alert. No obvious cranial nerve deficits. Motor grossly within normal limits. Normal speech. PSYCHIATRIC: Appropriate mood and affect; insight and judgment normal. Data Data Last Documented VS Vital Signs Date Time Temp Pulse Resp B/P (MAP) Pulse Ox O2 Delivery O2 Flow Rate FiO2 12/27/16 09:32 89 24 99 12/27/16 09:30 Room Air 12/27/16 09:22 98.2 147/86 (106) Orders Orders Electrocardiogram (12/27/16 ) Complete Blood Count With Diff (12/27/16 10:21) Comprehensive Metabolic Panel (12/27/16 10:21) Influenzae A/B Antigen (12/27/16 10:21) Iv Access Insert/Monitor (12/27/16 10:21) Electrocardiogram (12/27/16 10:21) Ecg Monitoring (12/27/16 10:21) Oximetry (12/27/16 10:21) Oxygen Administration (12/27/16 10:21) Chest, Pa & Lat (12/27/16 10:21) Sodium Chloride 0.9% Flush (Ns Flush) (12/27/16 10:30) Albuterol-Ipratropium Neb (Duoneb Neb) (12/27/16 10:30) Azithromycin (Zithromax) (12/27/16 10:30) Methylprednisolone So Succ Inj (Solumedr (12/27/16 10:30) Labs Laboratory Tests Test 12/27/16 10:27 White Blood Count 6.4 TH/MM3 Red Blood Count 3.99 MIL/MM3 Hemoglobin 13.6 GM/DL Hematocrit 39.0 % Mean Corpuscular Volume 97.8 FL Mean Corpuscular Hemoglobin 34.2 PG Mean Corpuscular Hemoglobin Concent 34.9 % Red Cell Distribution Width 15.4 % Platelet Count 208 TH/MM3 Mean Platelet Volume 8.9 FL Neutrophils (%) (Auto) 48.2 % Lymphocytes (%) (Auto) 30.2 % Monocytes (%) (Auto) 11.9 % Eosinophils (%) (Auto) 8.9 % Basophils (%) (Auto) 0.8 % Neutrophils # (Auto) 3.1 TH/MM3 Lymphocytes # (Auto) 1.9 TH/MM3 Monocytes # (Auto) 0.8 TH/MM3 Eosinophils # (Auto) 0.6 TH/MM3 Basophils # (Auto) 0.1 TH/MM3 CBC Comment DIFF FINAL Differential Comment Blood Urea Nitrogen 9 MG/DL Creatinine 0.83 MG/DL Random Glucose 88 MG/DL Total Protein 7.7 GM/DL Albumin 3.6 GM/DL Calcium Level 8.7 MG/DL Alkaline Phosphatase 75 U/L Aspartate Amino Transf (AST/SGOT) 63 U/L Alanine Aminotransferase (ALT/SGPT) 49 U/L Total Bilirubin 0.4 MG/DL Sodium Level 134 MEQ/L Potassium Level 4.7 MEQ/L Chloride Level 100 MEQ/L Carbon Dioxide Level 25.2 MEQ/L Anion Gap 9 MEQ/L Estimat Glomerular Filtration Rate 94 ML/MIN MDM Medical Decision Making Medical Screen Exam Complete: Yes Emergency Medical Condition: Yes Interpretation(s) My review of EKG: Sinus rhythm at a rate of 90, normal axis, normal intervals, no acute ischemia. Chest x-ray: Hyperinflation with minimal increased remarkable changes in the left apex, negative for active infiltrate. LABS: CBC is unremarkable. CMP is unremarkable. Differential Diagnosis COPD exacerbation, pneumonia, bronchitis, ACS, heart failure, other Narrative Course Medical decision-making 61-year-old man who presents to the emergency department complaining of worsening cough congestion shortness of breath. X-rays unremarkable. Labs unremarkable. Likely COPD exacerbation. Diagnosis Primary Impression: Acute exacerbation of chronic obstructive pulmonary disease (COPD) Additional Instructions: Use albuterol inhaler every 4-6 hours as needed. Take steroids as prescribed. Take antibiotics as prescribed. Follow-up with your primary doctor in the next 2-4 days. Med/Other Pt SpecificInfo: Prescription(s) given Scripts Albuterol 18 GM Inh (Ventolin Hfa 18 GM Inh) 90 Mcg/Act Aer 2 PUFF INH Q4-6H Y for SHORTNESS OF BREATH, #1 INHALER 0 Refills Prov: Davis Saldivar MD 12/27/16 Prednisone (Deltasone) 20 Mg Tab 20 MG PO BID for 10 Days, #20 TAB 0 Refills Prov: Davis Saldivar MD 12/27/16 Azithromycin (Azithromycin) 250 Mg Tab 250 MG PO DAILY for Infection, #4 TAB 0 Refills Prov: Davis Saldivar MD 12/27/16 Disposition: 01 DISCHARGE HOME Condition: Stable Davis Saldivar MD Dec 27, 2016 12:11
--- NOTE | 2016-12-27 15:12 | EKG ---
Date Performed: 12/27/2016 Time Performed: 09:49:29 PTAGE: 61 years EKG: Sinus rhythm NORMAL ECG PREVIOUS TRACING : 08/28/2016 09.12 Compared to prior tracing no significant change DOCTOR: Nba Ospina Interpretating Date/Time 12/27/2016 15:11:27
== END 2016-12-27 12:26 | disposition home or self-care (01) ==
LOC: NEPC 09:12
DX: J44.1 Chronic obstructive pulmonary disease with (acute) exacerbation (principal); I10 Essential (primary) hypertension; Z72.0 Tobacco use
CPT/HCPCS: 71020; 80053; 85025; 87804; 93005; 94640; 94664; 96374; 99285; J2930

== ENCOUNTER 2017-03-03 14:22 | Inpatient (IN) | payer MEDICARE ==
[2017-03-03] VITALS (7 sets, daily range): BP systolic 140–164; BP diastolic 79–92; PULSE 109–119; RESP 22–32; TEMP 97.9–98.3; O2SAT 94–100
[~2017-03-03] VITALS: Ht 172.7 cm; Wt 77.4 kg
[~2017-03-03 14:22] MED LIST changes: +AZIT250T3 PO; -DOXY100C PO; -MEDR4PAK PO; +PRED-503 PO
[2017-03-03] MEDS ORDERED: RESP: ALBUTEROL 2.5 MG/IPRATROPIUM 0.5 MG NEB (SCH) INH ONE (14:45)
--- NOTE | 2017-03-03 14:52 | PD ---
HPI Chief Complaint: Respiratory Distress Time Seen by Provider: 14:34 Travel History International Travel<30 days: No Contact w/Intl Traveler<30days: No Traveled to known affect area: No History of Present Illness HPI 61-year-old male with history of COPD who presents via EMS for evaluation of dyspnea. He reports that he has had a cough with clear and yellow sputum production over the past several days. Today he woke up feeling very short of breath. He tried using his albuterol inhaler minimal relief. On route he received 125 mg of Solu-Medrol and 3 doses of albuterol nebulizer. He had some improvement of symptoms initially. Currently he is feeling short of breath and anxious, obviously tachypneic. Denies chest pain, abdominal pain, checked if fevers, sore throat. No sick contacts. No recent travel. No leg swelling. No other complaints. PFSH Past Medical History Arthritis: No Asthma: Yes Autoimmune Disease: No Blood Disorders: No Anxiety: Yes Depression: No Heart Rhythm Problems: Yes (skip beat, pt on Diltiazem) Cancer: No Cardiovascular Problems: Yes High Cholesterol: No Chemotherapy: No Chest Pain: No Congestive Heart Failure: No COPD: Yes Cerebrovascular Accident: No Coronary Artery Disease: Yes Diabetes: No Diminished Hearing: No Endocrine: No Gastrointestinal Disorders: Yes (NUMEROUS GI SERIES, ENDOSCOPY) GERD: Yes Glaucoma: No Genitourinary: No Headaches: No Hepatitis: Yes (HEP A IN HIGH SCHOOL) Hiatal Hernia: No Hypertension: Yes Immune Disorder: No Kidney Stones: No Musculoskeletal: No Neurologic: No Psychiatric: No Reproductive: No Respiratory: Yes (COPD) Immunizations Current: No Migraines: No Myocardial Infarction: No Pneumonia: Yes Radiation Therapy: No Renal Failure: No Seizures: No Sickle Cell Disease: No Sleep Apnea: No Thyroid Disease: No Ulcer: No Past Surgical History Abdominal Surgery: Yes ( UPPER GI) AICD: No Appendectomy: No Arteriovenous Shunt: No Cardiac Surgery: No Cholecystectomy: No Ear Surgery: No Endocrine Surgery: No Eye Surgery: No Genitourinary Surgery: No Gynecologic Surgery: No Insulin Pump: No Joint Replacement: No Oral Surgery: No Pacemaker: No Thoracic Surgery: Yes (CHEST TUBE RIGHT SIDE/ COLLAPSED LUNG 2012) Other Surgery: Yes Social History Alcohol Use: Yes (RARELY) Tobacco Use: Yes (I CIG DAY ) Substance Use: No Allergies-Medications (Allergen,Severity, Reaction): Coded Allergies: codeine (Unverified Adverse Reaction, Mild, HEART SKIPPS BEAT., 10/23/16) Reported Meds & Prescriptions Reported Meds & Active Scripts Active Ventolin Hfa 18 GM Inh (Albuterol Sulfate) 90 Mcg/Act Aer 2 Puff INH Q4-6H PRN Ventolin Hfa 18 GM Inh (Albuterol Sulfate) 90 Mcg/Act Aer 2 Puff INH Q4-6H PRN Two puffs every 4-6 hrs as needed for shortness of breath or wheezing. If you need to use more often, call your doctor. Symbicort Inh (Budesonide/Formoterol Fumarate) 160-4.5 Mcg/Act Aero 2 Puff INH Q12HR Review of Systems Except as stated in HPI: all other systems reviewed are Neg Physical Exam Narrative GENERAL: Well-developed well-nourished male who appears tachypneic. Tachycardic on monitor. SKIN: Warm and dry. HEAD: Atraumatic. Normocephalic. EYES: Pupils equal and round. No scleral icterus. No injection or drainage. ENT: No nasal bleeding or discharge. Mucous membranes pink and moist. NECK: Trachea midline. No JVD. CARDIOVASCULAR: Regular rate and rhythm. No murmur appreciated. RESPIRATORY: Diffuse wheezing bilaterally, tachypneic, prolonged expiratory phase GASTROINTESTINAL: Abdomen soft, non-tender, nondistended. Hepatic and splenic margins not palpable. MUSCULOSKELETAL: No obvious deformities. No clubbing. No cyanosis. No edema. NEUROLOGICAL: Awake and alert. No obvious cranial nerve deficits. Motor grossly within normal limits. Normal speech. PSYCHIATRIC: Appropriate mood and affect; insight and judgment normal. Data Data Last Documented VS Vital Signs Date Time Temp Pulse Resp B/P (MAP) Pulse Ox O2 Delivery O2 Flow Rate FiO2 03/03/17 16:49 109 26 140/92 (108) 100 BiPAP 03/03/17 14:58 40 03/03/17 14:55 3.00 03/03/17 14:47 98.3 Orders Orders Complete Blood Count With Diff (03/03/17 14:35) Basic Metabolic Panel (Bmp) (03/03/17 14:35) B-Type Natriuretic Peptide (03/03/17 14:35) Magnesium (Mg) (03/03/17 14:35) Influenzae A/B Antigen (03/03/17 14:35) Iv Access Insert/Monitor (03/03/17 14:35) Electrocardiogram (03/03/17 14:35) Ecg Monitoring (03/03/17 14:35) Oximetry (03/03/17 14:35) Chest, Single Ap (03/03/17 14:35) Albuterol-Ipratropium Neb (Duoneb Neb) (03/03/17 14:45) Lorazepam Inj (Ativan Inj) (03/03/17 16:00) Ceftriaxone Inj (Rocephin Inj) (03/03/17 16:30) Azithromycin Inj (Zithromax Inj) (03/03/17 16:30) Resp Bipap / Cpap Non Invas Vt (03/03/17 16:38) Arterial Blood Gas (Abg) (03/03/17 ) Admit Order (Ed Use Only) (03/03/17 17:54) Labs Laboratory Tests Test 03/03/17 14:41 03/03/17 15:40 03/03/17 17:22 White Blood Count 11.7 TH/MM3 Red Blood Count 4.07 MIL/MM3 Hemoglobin 14.4 GM/DL Hematocrit 40.8 % Mean Corpuscular Volume 100.2 FL Mean Corpuscular Hemoglobin 35.3 PG Mean Corpuscular Hemoglobin Concent 35.2 % Red Cell Distribution Width 15.0 % Platelet Count 337 TH/MM3 Mean Platelet Volume 8.6 FL Neutrophils (%) (Auto) 76.3 % Lymphocytes (%) (Auto) 13.6 % Monocytes (%) (Auto) 8.8 % Eosinophils (%) (Auto) 0.5 % Basophils (%) (Auto) 0.8 % Neutrophils # (Auto) 8.9 TH/MM3 Lymphocytes # (Auto) 1.6 TH/MM3 Monocytes # (Auto) 1.0 TH/MM3 Eosinophils # (Auto) 0.1 TH/MM3 Basophils # (Auto) 0.1 TH/MM3 CBC Comment DIFF FINAL Differential Comment B-Type Natriuretic Peptide 27 PG/ML Blood Urea Nitrogen 19 MG/DL Creatinine 1.00 MG/DL Random Glucose 113 MG/DL Calcium Level 9.4 MG/DL Magnesium Level 1.8 MG/DL Sodium Level 135 MEQ/L Potassium Level 4.9 MEQ/L Chloride Level 99 MEQ/L Carbon Dioxide Level 26.4 MEQ/L Anion Gap 10 MEQ/L Estimat Glomerular Filtration Rate 76 ML/MIN Blood Gas Puncture Site RT RADIAL Blood Gas Patient Temperature 98.6 Blood Gas HCO3 21 mmol/L Blood Gas Base Excess -3.9 mmol/L Blood Gas Oxygen Saturation 96 % Arterial Blood pH 7.37 Arterial Blood Partial Pressure CO2 37 mmHg Arterial Blood Partial Pressure O2 117 mmHG Arterial Blood Oxygen Content 18.5 Vol % Arterial Blood Carboxyhemoglobin 1.3 % Arterial Blood Methemoglobin 0.6 % Blood Gas Hemoglobin 13.6 G/DL Oxygen Delivery Device BiPAP Blood Gas Ventilator Setting 10 IPAP 5EPAP 5 PEEP Blood Gas Inspired Oxygen 40 % MDM Medical Decision Making Medical Screen Exam Complete: Yes Emergency Medical Condition: Yes Medical Record Reviewed: Yes Differential Diagnosis COPD exacerbation, spontaneous pneumothorax, pericardial effusion, bronchitis Narrative Course The patient was placed on ECG monitor and pulse oximetry. A 12-lead EKG was obtained. Plan is for lab work, chest x-ray. DuoNeb treatment has been ordered. The patient was placed on BiPAP significant improvement in symptoms. CBC reveals a WBC count of 11.7. BMP reveals a BUN of 19. BNP is 27. Chest x-ray reveals cardiomegaly. The patient will be admitted for COPD exacerbation. He was given azithromycin and Rocephin. He was able to be weaned off the BiPAP. Diagnosis Primary Impression: Acute exacerbation of chronic obstructive pulmonary disease (COPD) Admitting Information Admitting Physician Requests: Admit Mack Watson Mar 03, 2017 14:52
[2017-03-03 14:57] LABS: AUTOMATED NEUTROPHIL # 8.9 TH/MM3 (1.8-7.7); BASOPHIL # 0.1 TH/MM3 (0-0.2); BASOPHIL % 0.8 % (0.0-2.0); EOSINOPHIL # 0.1 TH/MM3 (0-0.4); EOSINOPHIL % 0.5 % (0.0-4.0); HEMATOCRIT 40.8 % (39.0-51.0); HEMOGLOBIN 14.4 GM/DL (13.0-17.0); LYMPH % 13.6 % (9.0-44.0); LYMPHOCYTE # 1.6 TH/MM3 (1.0-4.8); MEAN CELL VOLUME 100.2 FL (80.0-100.0); MEAN CORPUSCULAR HEMOGLOBIN 35.3 PG (27.0-34.0); MEAN CORPUSCULAR HGB CONC 35.2 % (32.0-36.0); MEAN PLATELET VOLUME 8.6 FL (7.0-11.0); MONO % 8.8 % (0.0-8.0); NEUT % 76.3 % (16.0-70.0); PLATELET COUNT 337 TH/MM3 (150-450); RED BLOOD COUNT 4.07 MIL/MM3 (4.50-5.90); WHITE BLOOD COUNT 11.7 TH/MM3 (4.0-11.0)
--- NOTE | 2017-03-03 15:50 | RADRPT ---
EXAM DATE/TIME: 03/03/2017 14:41 [facility] COMPARISON: CHEST SINGLE AP, August 28, 2016, 8:25. INDICATIONS : Shortness of breath, difficulty breath starting today MEDICAL HISTORY : Chronic obstructive pulmonary disease SURGICAL HISTORY : None. ENCOUNTER: Initial ACUITY: 1 day PAIN SCORE: 0/10 LOCATION: Bilateral chest FINDINGS: The cardiac silhouette is enlarged in transverse diameter. The lungs are free of acute parenchymal op acity. No effusions are identified. There is prominence of the aortic knob is with calcification kiki acteristic of atherosclerotic vascular disease. CONCLUSION: 1. Cardiomegaly. No acute pulmonary disease. Gui Mckeon MD on March 03, 2017 at 15:47 Board Certified Radiologist. This report was verified electronically.
[2017-03-03] MEDS ORDERED: LORazepam 2 MG/ML VIAL IV PUSH ONE (16:00)
[2017-03-03 16:11] LABS: BICARBONATE 26.4 MEQ/L (21.0-32.0); CALCIUM 9.4 MG/DL (8.5-10.1); MAGNESIUM 1.8 MG/DL (1.5-2.5)
[2017-03-03] MEDS ORDERED: cefTRIAXone INJ 1,000 MG in SODIUM CHLORIDE 0.9% INJ 100 ML IV ONE (16:30)
[2017-03-03] MEDS ORDERED: AZITHROMYCIN INJ 500 MG in SODIUM CHLOR 0.9% 250 ML INJ 250 ML IV ONE (16:30)
--- NOTE | 2017-03-03 17:40 | HHI.HP ---
HPI Service [facility] Hospitalists Primary Care Physician No Primary Care Physician Admission Diagnosis Diagnoses: Chief Complaint: Cough with sputum production Dyspnea Travel History International Travel<30 Days: No Contact w/Intl Traveler <30 Da: No Traveled to Known Affected Are: No Sepsis Criteria SIRS Criteria (2 or more): Heart rate over 90, RR > 20 or PaCO2 < 32 Criteria Outcome: Meets SIRS criteria History of Present Illness Written by Arleen Ibrahim, acting as scribe for Dr. Estrada on 03/03/17 at 17:27. This is a 61yo male with a PMHX significant for COPD with ongoing tobaccoism, HTN, anxiety and hx of collapsed lung in 2011 who presents to [facility] ED with complaints of cough with yellowish sputum production for the past several days. This morning he woke up and was severely short of breath. He tried using his albuterol inhaler at home but with minimal relief prompting him to come into the ED. While in route with EMS, patient received 125 mg of Solu- Medrol and 3 doses of albuterol nebulizer with some initial improvement but short-term after arriving at the ED patient became tachypneic with RR 32. He was placed on BiPAP. Patient's breathing has improved now and he is on nasal cannula. Patient admits to daily alcohol consumption or 4 beers per day and states his last beer was at 7:00 this morning. Patient does not use oxygen at home. Review of Systems Except as stated in HPI: all other systems reviewed are Neg Past Family Social History Past Medical History COPD Ongoing tobaccoism Hx of medication noncompliance HTN, not on medication Anxiety Hx of collapsed lung 2011 Hx of esophageal strictures s/p dilatation years ago Past Surgical History Chest tube placement 2011 Hx of esophageal stricture dilation 15 years ago Reported Medications Ventolin Hfa 18 GM Inh (Albuterol Sulfate) 90 Mcg/Act Aer 2 Puff INH Q4-6H PRN Deltasone (Prednisone) 20 Mg Tab 20 Mg PO BID 10 Days Azithromycin 250 Mg Tab 250 Mg PO DAILY Ventolin Hfa 18 GM Inh (Albuterol Sulfate) 90 Mcg/Act Aer 2 Puff INH Q4-6H PRN Two puffs every 4-6 hrs as needed for shortness of breath or wheezing. If you need to use more often, call your doctor. Symbicort Inh (Budesonide/Formoterol Fumarate) 160-4.5 Mcg/Act Aero 2 Puff INH Q12HR Allergies: Coded Allergies: codeine (Unverified Adverse Reaction, Mild, HEART SKIPPS BEAT., 10/23/16) Active Ordered Medications Current Medications Medications (Trade) Dose Ordered Sig/Adam Route Start Time Stop Time Status Last Admin (NS Flush) 2 ml UNSCH PRN IV FLUSH 03/03/17 18:15 UNV (NS Flush) 2 ml BID IV FLUSH 03/03/17 21:00 UNV (Tylenol) 650 mg Q4H PRN PO 03/03/17 18:15 UNV (Zofran Inj) 4 mg Q6H PRN IVP 03/03/17 18:15 UNV (Lovenox Inj) 40 mg Q24H SQ 03/03/17 18:15 UNV (Narcan Inj) 0.4 mg UNSCH PRN IV PUSH 03/03/17 18:15 UNV (Alyson-Colace) 1 tab BID PO 03/03/17 21:00 UNV (Milk Of Magnesia Liq) 30 ml Q12H PRN PO 03/03/17 18:15 UNV (Senokot) 17.2 mg Q12H PRN PO 03/03/17 18:15 UNV (Dulcolax Supp) 10 mg DAILY PRN RECTAL 03/03/17 18:15 UNV (Lactulose Liq) 30 ml DAILY PRN PO 03/03/17 18:15 UNV (Duoneb Neb) 1 ampule Q2HR NEB PRN NEB 03/03/17 18:15 UNV (Duoneb Neb) 1 ampule Q4HR WHILE AWAKE NEB NEB 03/03/17 20:00 UNV (SoluMEDROL INJ) 40 mg Q6HR IV PUSH 03/04/17 00:00 UNV Azithromycin 500 mg/Sodium Chloride 250 ml @ 250 mls/hr Q24H IV 03/03/17 18:15 UNV Ceftriaxone Sodium 1000 mg/ Sodium Chloride 100 ml @ 200 mls/hr Q24H IV 03/03/17 18:15 UNV (Symbicort 160-4.5 Mcg Inh) 2 puff Q12HR INH 03/03/17 21:00 UNV Family History Father, colon cancer Mother, lung cancer, never smoked Social History Patient reports hx of tobacco use for the past 40yrs previously heavy smoker up to 3ppd but now only smokes 3-4 cigarette/day. Patient reports daily alcohol consumption of 4 beers per day. Reports his last alcoholic beverage was at 7am this morning. Physical Exam Vital Signs Vital Signs Date Time Temp Pulse Resp B/P (MAP) Pulse Ox O2 Delivery O2 Flow Rate FiO2 03/03/17 16:49 109 26 140/92 (108) 100 BiPAP 03/03/17 14:58 99 40 03/03/17 14:56 112 32 98 Nasal Cannula 03/03/17 14:55 32 98 Nasal Cannula 3.00 03/03/17 14:47 98.3 118 32 141/79 (99) 96 Nasal Cannula 2.00 Physical Exam GENERAL: This is a well-nourished, well-developed male patient, in no apparent distress. Awake and alert. SKIN: No rashes, ecchymoses or lesions. Cool and dry. HEAD: Atraumatic. Normocephalic. No temporal or scalp tenderness. EYES: Pupils equal round and reactive. Extraocular motions intact. No scleral icterus. No injection or drainage. ENT: Nose without bleeding or purulent drainage. Throat without erythema, tonsillar hypertrophy or exudate. Uvula midline. Airway patent. NECK: Trachea midline. No lymphadenopathy. Supple, nontender, no meningeal signs. CARDIOVASCULAR: Tachycardic with regular rhythm without murmurs, gallops, or rubs. RESPIRATORY: Diminished breath sounds with scattered wheezing throughout. GASTROINTESTINAL: Abdomen soft, non-tender, nondistended. No hepato-splenomegaly , or palpable masses. No guarding. MUSCULOSKELETAL: Extremities without clubbing, cyanosis, or edema. No joint tenderness, effusion, or edema noted. No calf tenderness. NEUROLOGICAL: Awake and alert. Motor and sensory grossly within normal limits. Five out of 5 muscle strength in all muscle groups. No focal neurologic findings appreciated. Normal speech. Laboratory Laboratory Tests Test 03/03/17 14:41 03/03/17 15:40 White Blood Count 11.7 Red Blood Count 4.07 Hemoglobin 14.4 Hematocrit 40.8 Mean Corpuscular Volume 100.2 Mean Corpuscular Hemoglobin 35.3 Mean Corpuscular Hemoglobin Concent 35.2 Red Cell Distribution Width 15.0 Platelet Count 337 Mean Platelet Volume 8.6 Neutrophils (%) (Auto) 76.3 Lymphocytes (%) (Auto) 13.6 Monocytes (%) (Auto) 8.8 Eosinophils (%) (Auto) 0.5 Basophils (%) (Auto) 0.8 Neutrophils # (Auto) 8.9 Lymphocytes # (Auto) 1.6 Monocytes # (Auto) 1.0 Eosinophils # (Auto) 0.1 Basophils # (Auto) 0.1 CBC Comment DIFF FINAL Differential Comment B-Type Natriuretic Peptide 27 Blood Urea Nitrogen 19 Creatinine 1.00 Random Glucose 113 Calcium Level 9.4 Magnesium Level 1.8 Sodium Level 135 Potassium Level 4.9 Chloride Level 99 Carbon Dioxide Level 26.4 Anion Gap 10 Estimat Glomerular Filtration Rate 76 Date/Time Source Procedure Growth Status 03/03/17 15:50 Nasal Aspirate Influenza Types A,B Antigen (MATT) - Final NEGATIVE FOR FLU A AND B ANTIGEN.... Complete Result Diagram: 03/03/17 1441 03/03/17 1540 Imaging Last Impressions Chest X-Ray 03/03/17 1435 Signed Impressions: Service Date/Time: Friday, March 03, 2017 14:41 - CONCLUSION: 1. Cardiomegaly. No acute pulmonary disease. MD Kevin Hoffman VTE Risk Assessment Kevin VTE Risk Assessment: Mod/High Risk (score >= 2) Caprini Risk Assessment Model Point Value = 1 Point Value = 2 Point Value = 3 Point Value = 5 Age 41-60 Minor surgery BMI > 25 kg/m2 Swollen legs Varicose veins or History of unexplained or recurrent spontaneous Oral contraceptives or hormone replacement Sepsis (< 1 month) Serious lung disease, including pneumonia (< 1 month) Abnormal pulmonary function Acute myocardial infarction Congestive heart failure (< 1 month) History of inflammatory bowel disease Medical patient at bed rest Age 61-74 Arthroscopic surgery Major open surgery (> 45 min) Laparoscopic surgery (> 45 min) Malignancy Confined to bed (> 72 hours) Immobilizing plaster cast Central venous access Age >= 75 History of VTE Family history of VTE Factor V Leiden Prothrombin [id number] Lupus anticoagulant Anticardiolipin antibodies Elevated serum homocysteine Heparin-induced thrombocytopenia Other congenital or acquired thrombophilia Stroke (< 1 month) Elective arthroplasty Hip, pelvis, or leg fracture Acute spinal cord injury (< 1 month) Prophylaxis Regimen Total Risk Factor Score Risk Level Prophylaxis Regimen 0-1 Low Early ambulation 2 Moderate Order ONE of the following: *Sequential Compression Device (SCD) *Heparin 5000 units SQ BID 3-4 Higher Order ONE of the following medications: *Heparin 5000 units SQ TID *Enoxaparin/Lovenox 40 mg SQ daily (WT < 150 kg, CrCl > 30 mL/min) *Enoxaparin/Lovenox 30 mg SQ daily (WT < 150 kg, CrCl > 10-29 mL/min) *Enoxaparin/Lovenox 30 mg SQ BID (WT < 150 kg, CrCl > 30 mL/min) AND/OR *Sequential Compression Device (SCD) 5 or more Highest Order ONE of the following medications: *Heparin 5000 units SQ TID (Preferred with Epidurals) *Enoxaparin/Lovenox 40 mg SQ daily (WT < 150 kg, CrCl > 30 mL/min) *Enoxaparin/Lovenox 30 mg SQ daily (WT < 150 kg, CrCl > 10-29 mL/min) *Enoxaparin/Lovenox 30 mg SQ BID (WT < 150 kg, CrCl > 30 mL/min) AND *Sequential Compression Device (SCD) Assessment and Plan Assessment and Plan 61yo male with a PMHX significant for COPD with ongoing tobaccoism, CAD, HTN, anxiety and hx of collapsed lung in 2011 who presents to [facility] ED with complaints of cough with yellowish sputum production for the past several days. Patient meets SIRS criteria with elevated HR 109 and RR 26 COPD exacerbation Ongoing tobaccoism - Cessation counseling - Patient given IV Azithromycin and Rocephin in the ED. Continue. - Duonebs scheduled - IV methylprednisolone 40mg q 6h - continue supplemental oxygen to maintain O2 sats above 92%. Patient currently satting 100% on Bipap. Wean off of oxygen as tolerated. - resume home Symbicort Inh BID Leukocytosis - suspect reactive - CXR reveals cardiomegaly but no acute cardiopulmonary process, images reviewed by me - patient is afebrile - monitor white count Macrocytosis - Suspect secondary to alcohol abuse - Monitor Alcohol abuse Patient states his last alcoholic beverage was at 7am this morning - monitor for signs of DTs - CIWA protocol - Thiamine/MVI/Folic acid daily Hypertension reports hx of but has not been on medication for 10+ years - fair control at present - continue to monitor BP and will initiate treatment as indicated DVT prophylaxis - Lovenox sq This note was transcribed by BRYCE Patel. I, Dr. Meryl Estrada personally performed the history, physical exam, and medical decision making; and confirmed the accuracy of the information in the transcribed note. Authenticated by Dr. Meryl Estrada on 03/03/17 at 17:27. Discussed Condition With ED physician, nursing staff, patient Arleen Ibrahim Mar 03, 2017 17:40 Meryl Estrada MD Mar 03, 2017 19:41
--- NOTE | 2017-03-03 18:03 | PD ---
Physical Exam Narrative GENERAL: Well-nourished, well-developed patient. SKIN: Warm and dry. HEAD: Normocephalic and atraumatic. EYES: No injection or drainage. ENT: No nasal drainage noted. NECK: Supple, trachea midline. CARDIOVASCULAR: Regular rate and rhythm RESPIRATORY: Inspiratory and expiratory wheezing bilaterally. No accessory muscle use. Tachypnea noted GASTROINTESTINAL: Abdomen nondistended. NEUROLOGICAL: Awake. Moves all extremities and sensory grossly within normal limits. Normal speech. Data Data Last Documented VS Vital Signs Date Time Temp Pulse Resp B/P (MAP) Pulse Ox O2 Delivery O2 Flow Rate FiO2 03/03/17 16:49 109 26 140/92 (108) 100 BiPAP 03/03/17 14:58 40 03/03/17 14:55 3.00 03/03/17 14:47 98.3 Orders Orders Complete Blood Count With Diff (03/03/17 14:35) Basic Metabolic Panel (Bmp) (03/03/17 14:35) B-Type Natriuretic Peptide (03/03/17 14:35) Magnesium (Mg) (03/03/17 14:35) Influenzae A/B Antigen (03/03/17 14:35) Iv Access Insert/Monitor (03/03/17 14:35) Electrocardiogram (03/03/17 14:35) Ecg Monitoring (03/03/17 14:35) Oximetry (03/03/17 14:35) Chest, Single Ap (03/03/17 14:35) Albuterol-Ipratropium Neb (Duoneb Neb) (03/03/17 14:45) Lorazepam Inj (Ativan Inj) (03/03/17 16:00) Ceftriaxone Inj (Rocephin Inj) (03/03/17 16:30) Azithromycin Inj (Zithromax Inj) (03/03/17 16:30) Resp Bipap / Cpap Non Invas Vt (03/03/17 16:38) Arterial Blood Gas (Abg) (03/03/17 ) Admit Order (Ed Use Only) (03/03/17 17:54) Labs Laboratory Tests Test 03/03/17 14:41 03/03/17 15:40 03/03/17 17:22 White Blood Count 11.7 TH/MM3 Red Blood Count 4.07 MIL/MM3 Hemoglobin 14.4 GM/DL Hematocrit 40.8 % Mean Corpuscular Volume 100.2 FL Mean Corpuscular Hemoglobin 35.3 PG Mean Corpuscular Hemoglobin Concent 35.2 % Red Cell Distribution Width 15.0 % Platelet Count 337 TH/MM3 Mean Platelet Volume 8.6 FL Neutrophils (%) (Auto) 76.3 % Lymphocytes (%) (Auto) 13.6 % Monocytes (%) (Auto) 8.8 % Eosinophils (%) (Auto) 0.5 % Basophils (%) (Auto) 0.8 % Neutrophils # (Auto) 8.9 TH/MM3 Lymphocytes # (Auto) 1.6 TH/MM3 Monocytes # (Auto) 1.0 TH/MM3 Eosinophils # (Auto) 0.1 TH/MM3 Basophils # (Auto) 0.1 TH/MM3 CBC Comment DIFF FINAL Differential Comment B-Type Natriuretic Peptide 27 PG/ML Blood Urea Nitrogen 19 MG/DL Creatinine 1.00 MG/DL Random Glucose 113 MG/DL Calcium Level 9.4 MG/DL Magnesium Level 1.8 MG/DL Sodium Level 135 MEQ/L Potassium Level 4.9 MEQ/L Chloride Level 99 MEQ/L Carbon Dioxide Level 26.4 MEQ/L Anion Gap 10 MEQ/L Estimat Glomerular Filtration Rate 76 ML/MIN Blood Gas Puncture Site RT RADIAL Blood Gas Patient Temperature 98.6 Blood Gas HCO3 21 mmol/L Blood Gas Base Excess -3.9 mmol/L Blood Gas Oxygen Saturation 96 % Arterial Blood pH 7.37 Arterial Blood Partial Pressure CO2 37 mmHg Arterial Blood Partial Pressure O2 117 mmHG Arterial Blood Oxygen Content 18.5 Vol % Arterial Blood Carboxyhemoglobin 1.3 % Arterial Blood Methemoglobin 0.6 % Blood Gas Hemoglobin 13.6 G/DL Oxygen Delivery Device BiPAP Blood Gas Ventilator Setting 10 IPAP 5EPAP 5 PEEP Blood Gas Inspired Oxygen 40 % MDM Supervised Visit with ROSENDO: Yes Interpretation(s) CBC & BMP Diagram 03/03/17 14:41 03/03/17 15:40 Calcium Level 9.4, Magnesium Level 1.8 Last 24 hours Impressions Chest X-Ray 03/03/17 6225 Signed Impressions: Service Date/Time: Friday, March 03, 2017 14:41 - CONCLUSION: 1. Cardiomegaly. No acute pulmonary disease. Gui Mckeon MD Narrative Course I, Dr. fitzgerald, have reviewed the advance practice practitioner's documentation and am in agreement, met with the patient face to face, made the diagnosis, and the medical decision making was done by me. *My assessment and Findings: 61-year-old male presents with COPD exacerbation. Started on BiPAP given tachypnea and decreased aeration. Patient had significant improvement and on ABG without significant findings. Was able to wean off BiPAP but given still requiring oxygen he'll need to stay in the hospital for further care. Diagnosis Primary Impression: Acute exacerbation of chronic obstructive pulmonary disease (COPD) Hoda Fitzgerald MD Mar 03, 2017 18:03
[2017-03-03] MEDS ORDERED: BISACODYL 10 MG SUPP RECTAL PRN (18:15)
[2017-03-03] MEDS ORDERED: LACTULOSE SYRUP 20 GM/30 ML CUP PO PRN (18:15)
[2017-03-03] MEDS ORDERED: ACETAMINOPHEN 325 MG TAB PO PRN (18:15)
[2017-03-03] MEDS ORDERED: MAGNESIUM HYDROXIDE SUSP 30 ML CUP PO PRN (18:15)
[2017-03-03] MEDS ORDERED: SODIUM CHLORIDE 0.9% FLUSH 10 ML FLUSH IV FLUSH PRN (18:15)
[2017-03-03] MEDS ORDERED: SENNOSIDES 8.6 MG TAB PO PRN (18:15)
[2017-03-03] MEDS ORDERED: NALOXONE HCL 0.4 MG/ML AMP IV PUSH PRN (18:15)
[2017-03-03] MEDS ORDERED: LORazepam 2 MG TAB PO PRN (18:45)
[2017-03-03] MEDS ORDERED: LORazepam 2 MG/ML VIAL IV PUSH PRN ×3 (18:45)
[2017-03-03] MEDS ORDERED: FLUMAZENIL 0.5 MG/5 ML VIAL IV PUSH PRN (18:45)
[2017-03-03] MEDS: LORazepam 1 MG TAB PO PRN ×2 (18:56→22:59)
[2017-03-03] MEDS ORDERED: FOLIC ACID 1 MG TAB PO ONE (19:00)
[2017-03-03] MEDS ORDERED: MULTIVITAMIN TAB PO ONE (19:00)
[2017-03-03] MEDS ORDERED: THIAMINE HCL 100 MG TAB PO ONE (19:00)
[2017-03-03] MEDS: RESP: ALBUTEROL 2.5 MG/IPRATROPIUM 0.5 MG NEB (SCH) NEB (19:54)
[2017-03-03] MEDS: ENOXAPARIN SODIUM 40 MG/0.4 ML SYRINGE SQ SCH (20:45)
[2017-03-03] MEDS: DOCUSATE SODIUM 50 MG/SENNA 8.6 MG TAB PO SCH (20:45)
[2017-03-03] MEDS: BUDESONIDE-FORMOTEROL 160/4.5 MCG INHALER INH SCH (20:46)
[2017-03-03] MEDS: SODIUM CHLORIDE 0.9% FLUSH 10 ML FLUSH IV FLUSH SCH (20:46)
[2017-03-03] MEDS: methylPREDNISolone SOD SUCC 40 MG/1 ML VIAL IV PUSH SCH (23:00)
[2017-03-03] MEDS: RESP: ALBUTEROL 2.5 MG/IPRATROPIUM 0.5 MG NEB (PRN) NEB (23:48)
[2017-03-04] VITALS (11 sets, daily range): BP systolic 108–150; BP diastolic 63–93; PULSE 82–111; RESP 16–21; TEMP 97.5–98.3; O2SAT 95–100
[2017-03-04] MEDS: LORazepam 1 MG TAB PO PRN ×2 (05:18→21:58)
[2017-03-04] MEDS: methylPREDNISolone SOD SUCC 40 MG/1 ML VIAL IV PUSH SCH ×3 (05:18→21:57)
[2017-03-04] MEDS: RESP: ALBUTEROL 2.5 MG/IPRATROPIUM 0.5 MG NEB (SCH) NEB ×4 (08:04→21:37)
[2017-03-04 08:57] LABS: BICARBONATE 24.6 MEQ/L (21.0-32.0); CALCIUM 9.1 MG/DL (8.5-10.1); CREATININE 0.94 MG/DL (0.60-1.30)
[2017-03-04] MEDS: MULTIVITAMIN TAB PO SCH (09:47)
[2017-03-04] MEDS: FOLIC ACID 1 MG TAB PO SCH (09:47)
[2017-03-04] MEDS: THIAMINE HCL 100 MG TAB PO SCH (09:47)
[2017-03-04] MEDS: DOCUSATE SODIUM 50 MG/SENNA 8.6 MG TAB PO SCH ×2 (09:47→21:58)
[2017-03-04] MEDS: BUDESONIDE-FORMOTEROL 160/4.5 MCG INHALER INH SCH ×2 (09:48→21:58)
[2017-03-04] MEDS: SODIUM CHLORIDE 0.9% FLUSH 10 ML FLUSH IV FLUSH SCH ×2 (09:48→21:58)
[2017-03-04] MEDS: LORazepam 2 MG/ML VIAL IV PUSH PRN ×2 (09:53→16:26)
--- NOTE | 2017-03-04 11:24 | HHI.PR ---
Subjective Remarks Follow-up COPD exacerbation 03/04/17-patient seen and examined, still complains of shortness of breath however improved compared to last night. Denies any chest pain. Wheezing improving. Objective Vitals Vital Signs Date Time Temp Pulse Resp B/P (MAP) Pulse Ox O2 Delivery O2 Flow Rate FiO2 03/04/17 08:07 97.5 95 21 143/93 (110) 95 03/04/17 08:05 100 Nasal Cannula 2.00 03/04/17 04:08 109 03/04/17 04:00 Nasal Cannula 2.00 03/04/17 04:00 97.5 106 17 108/63 (78) 96 03/04/17 00:09 108 03/04/17 00:00 97.5 111 20 127/79 (95) 98 03/04/17 00:00 Nasal Cannula 2.00 03/03/17 20:14 114 03/03/17 20:00 Nasal Cannula 2.00 03/03/17 19:59 95 Nasal Cannula 2.00 03/03/17 19:00 97.9 119 22 164/80 (108) 94 03/03/17 18:46 Nasal Cannula 2.00 03/03/17 16:49 109 26 140/92 (108) 100 BiPAP 03/03/17 14:58 99 40 03/03/17 14:56 112 32 98 Nasal Cannula 03/03/17 14:55 32 98 Nasal Cannula 3.00 03/03/17 14:47 98.3 118 32 141/79 (99) 96 Nasal Cannula 2.00 I/O 03/03/17 03/03/17 03/03/17 03/04/17 03/04/17 03/04/17 07:00 15:00 23:00 07:00 15:00 23:00 Intake Total 720 ml Output Total 800 ml Balance -80 ml Intake Oral 720 ml Output Urine Total 800 ml # Bowel Movements 0 Result Diagram: 03/03/17 1441 03/04/17 0708 Imaging Last Impressions Chest X-Ray 03/03/17 1435 Signed Impressions: Service Date/Time: Friday, March 03, 2017 14:41 - CONCLUSION: 1. Cardiomegaly. No acute pulmonary disease. Gui Mckeon MD Objective Remarks GENERAL: NAD SKIN: Warm and dry. HEAD: Normocephalic. EYES: No scleral icterus. No injection or drainage. NECK: Supple, trachea midline. No JVD or lymphadenopathy. CARDIOVASCULAR: Regular rate and rhythm without murmurs, gallops, or rubs. RESPIRATORY: Breath sounds decrease bilaterally. No accessory muscle use. Bilateral expiratory wheezes GASTROINTESTINAL: Abdomen soft, non-tender, nondistended. MUSCULOSKELETAL: No cyanosis, or edema. BACK: Nontender without obvious deformity. No CVA tenderness. A/P Problem List: (1) Acute exacerbation of chronic obstructive pulmonary disease (COPD) ICD Code: J44.1 - Chronic obstructive pulmonary disease with (acute) exacerbation Status: Acute Assessment and Plan COPD exacerbation Ongoing tobaccoism - Cessation counseling provided - Switch to by mouth azithromycin 250 mg daily - Continue Duo nebs scheduled and maintain oxygen saturation above 92% - Decrease IV methylprednisolone 40mg to q 8h - Start Spiriva and continue Symbicort Inh BID Leukocytosis - suspect reactive - CXR reveals cardiomegaly but no acute cardiopulmonary process - monitor white count Macrocytosis - Suspect secondary to alcohol abuse - Monitor Alcohol abuse Patient states his last alcoholic beverage was at 7am this morning - monitor for signs of DTs - CIWA protocol - Thiamine/MVI/Folic acid daily Hypertension reports hx of but has not been on medication for 10+ years - continue to monitor BP and will initiate treatment as indicated DVT prophylaxis - Lovenox sq Enoch Abrams MD Mar 04, 2017 11:24
--- NOTE | 2017-03-04 13:54 | EKG ---
Date Performed: 03/03/2017 Time Performed: 14:37:43 PTAGE: 61 years EKG: SINUS TACHYCARDIA POSSIBLE RIGHT ATRIAL ENLARGEMENT MINIMAL ST DEPRESSION ABNORMAL RHYTHM E CG Compared to PREVIOUS TRACING , heart rate is faster and the atrial abnormality more prominent. PREVIO US TRACIN12/27/2016 09.49.29 DOCTOR: Tommy Vidal Interpretating Date/Time 03/04/2017 13:54:08
[2017-03-04] MEDS ORDERED: cefTRIAXone INJ 1,000 MG in SODIUM CHLORIDE 0.9% INJ 100 ML IV SCH (16:00)
[2017-03-04] MEDS: AZITHROMYCIN 250 MG TAB PO SCH (16:25)
[2017-03-04] MEDS ORDERED: AZITHROMYCIN INJ 500 MG in SODIUM CHLOR 0.9% 250 ML INJ 250 ML IV SCH (17:00)
[2017-03-04] MEDS: guaiFENesin E.R. 600 MG TAB PO SCH (21:57)
[2017-03-04] MEDS: ENOXAPARIN SODIUM 40 MG/0.4 ML SYRINGE SQ SCH (21:58)
[2017-03-05] VITALS (14 sets, daily range): BP systolic 115–145; BP diastolic 74–85; PULSE 77–110; RESP 16–20; TEMP 97.5–98.3; O2SAT 96–99
[2017-03-05] MEDS: RESP: ALBUTEROL 2.5 MG/IPRATROPIUM 0.5 MG NEB (PRN) NEB (00:29)
[2017-03-05] MEDS: methylPREDNISolone SOD SUCC 40 MG/1 ML VIAL IV PUSH SCH ×3 (05:07→21:16)
[2017-03-05] MEDS: LORazepam 1 MG TAB PO PRN ×4 (05:07→22:50)
[2017-03-05 07:14] LABS: AUTOMATED NEUTROPHIL # 9.2 TH/MM3 (1.8-7.7); BASOPHIL % 0.1 % (0.0-2.0); HEMATOCRIT 39.2 % (39.0-51.0); HEMOGLOBIN 13.6 GM/DL (13.0-17.0); LYMPH % 4.4 % (9.0-44.0); LYMPHOCYTE # 0.5 TH/MM3 (1.0-4.8); MEAN CELL VOLUME 101.1 FL (80.0-100.0); MEAN CORPUSCULAR HEMOGLOBIN 35.1 PG (27.0-34.0); MEAN CORPUSCULAR HGB CONC 34.7 % (32.0-36.0); MEAN PLATELET VOLUME 9.1 FL (7.0-11.0); MONO % 5.3 % (0.0-8.0); MONOCYTE # 0.5 TH/MM3 (0-0.9); NEUT % 90.2 % (16.0-70.0); PLATELET COUNT 263 TH/MM3 (150-450); RED BLOOD COUNT 3.88 MIL/MM3 (4.50-5.90); RED CELL DISTRIBUTION WIDTH 14.2 % (11.6-17.2); WHITE BLOOD COUNT 10.2 TH/MM3 (4.0-11.0)
[2017-03-05 07:34] LABS: BICARBONATE 24.9 MEQ/L (21.0-32.0); CREATININE 0.97 MG/DL (0.60-1.30)
[2017-03-05] MEDS: RESP: ALBUTEROL 2.5 MG/IPRATROPIUM 0.5 MG NEB (SCH) NEB ×4 (08:09→20:58)
[2017-03-05] MEDS: SODIUM CHLORIDE 0.9% FLUSH 10 ML FLUSH IV FLUSH SCH ×2 (08:58→21:17)
[2017-03-05] MEDS: TIOTROPIUM BROMIDE 18 MCG INH INH SCH (08:59)
[2017-03-05] MEDS: MULTIVITAMIN TAB PO SCH (09:00)
[2017-03-05] MEDS: DOCUSATE SODIUM 50 MG/SENNA 8.6 MG TAB PO SCH ×2 (09:00→21:00)
[2017-03-05] MEDS: FOLIC ACID 1 MG TAB PO SCH (09:00)
[2017-03-05] MEDS: THIAMINE HCL 100 MG TAB PO SCH (09:00)
[2017-03-05] MEDS: guaiFENesin E.R. 600 MG TAB PO SCH ×2 (09:00→21:17)
[2017-03-05] MEDS: BUDESONIDE-FORMOTEROL 160/4.5 MCG INHALER INH SCH ×2 (09:01→21:15)
--- NOTE | 2017-03-05 09:59 | HHI.PR ---
Subjective Remarks Follow-up COPD exacerbation 03/04/17-patient seen and examined, still complains of shortness of breath however improved compared to last night. Denies any chest pain. Wheezing improving. 03/05/17-patient seen and examined, still significantly shortness of breath however reports improvement of cough symptoms. Objective Vitals Vital Signs Date Time Temp Pulse Resp B/P (MAP) Pulse Ox O2 Delivery O2 Flow Rate FiO2 03/05/17 08:10 97 Nasal Cannula 2.00 03/05/17 08:08 97.8 92 18 140/77 (98) 98 03/05/17 08:02 95 03/05/17 04:00 Nasal Cannula 2.00 03/05/17 04:00 98.3 88 18 115/74 (88) 97 03/05/17 03:45 77 03/05/17 00:00 98.1 84 16 117/79 (92) 97 03/05/17 00:00 Nasal Cannula 2.00 03/04/17 23:34 88 03/04/17 21:38 96 Nasal Cannula 2.00 03/04/17 20:00 82 03/04/17 20:00 97.8 89 16 123/79 (94) 97 03/04/17 20:00 Nasal Cannula 2.00 03/04/17 16:07 98.3 99 21 150/76 (100) 96 03/04/17 12:07 98.1 96 21 120/82 (95) 95 I/O 03/04/17 03/04/17 03/04/17 03/05/17 03/05/17 03/05/17 07:00 15:00 23:00 07:00 15:00 23:00 Intake Total 720 ml 820 ml Output Total 800 ml Balance -80 ml 820 ml Intake Oral 720 ml 820 ml Output Urine Total 800 ml # Voids 4 # Bowel Movements 0 0 Result Diagram: 03/05/1751903/05/17519 Objective Remarks GENERAL: NAD SKIN: Warm and dry. HEAD: Normocephalic. EYES: No scleral icterus. No injection or drainage. NECK: Supple, trachea midline. No JVD or lymphadenopathy. CARDIOVASCULAR: Regular rate and rhythm without murmurs, gallops, or rubs. RESPIRATORY: Breath sounds decrease bilaterally. No accessory muscle use. Bilateral expiratory wheezes GASTROINTESTINAL: Abdomen soft, non-tender, nondistended. MUSCULOSKELETAL: No cyanosis, or edema. BACK: Nontender without obvious deformity. No CVA tenderness. A/P Problem List: (1) Acute exacerbation of chronic obstructive pulmonary disease (COPD) ICD Code: J44.1 - Chronic obstructive pulmonary disease with (acute) exacerbation Status: Acute Assessment and Plan COPD exacerbation Ongoing tobaccoism - Cessation counseling provided - Switch to by mouth azithromycin 250 mg daily - Continue Duo nebs scheduled and maintain oxygen saturation above 92% - Continue IV methylprednisolone 40mg to q 8h - Continue Spiriva and Symbicort INH BID Leukocytosis - suspect reactive - CXR reveals cardiomegaly but no acute cardiopulmonary process - monitor white count Macrocytosis - Suspect secondary to alcohol abuse - Monitor Alcohol abuse - monitor for signs of DTs - CIWA protocol - Thiamine/MVI/Folic acid daily Hypertension reports hx of but has not been on medication for 10+ years - continue to monitor BP and will initiate treatment as indicated DVT prophylaxis - Lovenox sq Enoch Abrams MD Mar 05, 2017 09:59
[2017-03-05] MEDS: REMOVE OLD PATCH T-DERMAL SCH (10:00)
[2017-03-05] MEDS: NICOTINE 21 MG/24 HR PATCH T-DERMAL SCH (10:12)
[2017-03-05] MEDS: AZITHROMYCIN 250 MG TAB PO SCH (15:52)
[2017-03-05] MEDS: ONDANSETRON HCL 4 MG/2 ML VIAL IVP PRN (17:10)
[2017-03-05] MEDS: ENOXAPARIN SODIUM 40 MG/0.4 ML SYRINGE SQ SCH (21:16)
[2017-03-06] VITALS (13 sets, daily range): BP systolic 118–136; BP diastolic 71–95; PULSE 74–110; RESP 18–20; TEMP 97.3–98.3; O2SAT 94–99
[2017-03-06] MEDS: methylPREDNISolone SOD SUCC 40 MG/1 ML VIAL IV PUSH SCH ×3 (06:32→20:26)
[2017-03-06] MEDS: LORazepam 1 MG TAB PO PRN ×2 (06:34→23:40)
[2017-03-06] MEDS: RESP: ALBUTEROL 2.5 MG/IPRATROPIUM 0.5 MG NEB (SCH) NEB ×4 (07:54→19:26)
[2017-03-06] MEDS: MULTIVITAMIN TAB PO SCH (08:14)
[2017-03-06] MEDS: guaiFENesin E.R. 600 MG TAB PO SCH ×2 (08:14→20:26)
[2017-03-06] MEDS: FOLIC ACID 1 MG TAB PO SCH (08:14)
[2017-03-06] MEDS: SODIUM CHLORIDE 0.9% FLUSH 10 ML FLUSH IV FLUSH SCH ×2 (08:14→20:31)
[2017-03-06] MEDS: DOCUSATE SODIUM 50 MG/SENNA 8.6 MG TAB PO SCH ×2 (08:14→20:26)
[2017-03-06] MEDS: TIOTROPIUM BROMIDE 18 MCG INH INH SCH (08:14)
[2017-03-06] MEDS: THIAMINE HCL 100 MG TAB PO SCH (08:14)
[2017-03-06] MEDS: REMOVE OLD PATCH T-DERMAL SCH (08:15)
[2017-03-06] MEDS: NICOTINE 21 MG/24 HR PATCH T-DERMAL SCH (08:15)
[2017-03-06] MEDS: BUDESONIDE-FORMOTEROL 160/4.5 MCG INHALER INH SCH ×2 (08:18→20:30)
--- NOTE | 2017-03-06 11:47 | HHI.PR ---
Subjective Remarks Follow-up COPD exacerbation 03/04/17-patient seen and examined, still complains of shortness of breath however improved compared to last night. Denies any chest pain. Wheezing improving. 03/05/17-patient seen and examined, still significantly shortness of breath however reports improvement of cough symptoms. 03/06/17-patient seen and examined, +shortness of breath with exertion; cough improved Objective Vitals Vital Signs Date Time Temp Pulse Resp B/P (MAP) Pulse Ox O2 Delivery O2 Flow Rate FiO2 03/06/17 08:17 97.3 110 20 118/87 (97) 94 03/06/17 08:00 91 03/06/17 07:55 97 Nasal Cannula 2.00 03/06/17 07:53 Nasal Cannula 2.00 40 03/06/17 04:25 74 03/06/17 04:00 97.6 87 18 118/71 (87) 99 03/06/17 00:00 98.3 86 18 118/75 (89) 97 03/05/17 23:58 108 03/05/17 23:43 Nasal Cannula 2.00 03/05/17 20:59 96 Nasal Cannula 3.00 03/05/17 20:29 104 03/05/17 20:00 98.0 110 16 127/77 (94) 99 03/05/17 16:25 98.1 107 20 145/80 (101) 96 03/05/17 16:07 108 03/05/17 12:32 97.5 106 18 141/85 (103) 98 03/05/17 12:10 96 I/O 03/05/17 03/05/17 03/05/17 03/06/17 03/06/17 03/06/17 06:59 14:59 22:59 06:59 14:59 22:59 Intake Total 940 ml Balance 940 ml Intake Oral 940 ml # Voids 3 # Bowel Movements 2 Result Diagram: 03/05/17 0520 03/05/17 0520 Imaging Last Impressions Chest X-Ray 03/03/17 1435 Signed Impressions: Service Date/Time: Friday, March 03, 2017 14:41 - CONCLUSION: 1. Cardiomegaly. No acute pulmonary disease. Gui Mckeon MD Objective Remarks GENERAL: NAD SKIN: Warm and dry. HEAD: Normocephalic. EYES: No scleral icterus. No injection or drainage. NECK: Supple, trachea midline. No JVD or lymphadenopathy. CARDIOVASCULAR: Regular rate and rhythm without murmurs, gallops, or rubs. RESPIRATORY: Breath sounds decrease bilaterally. No accessory muscle use. Bilateral expiratory wheezes GASTROINTESTINAL: Abdomen soft, non-tender, nondistended. MUSCULOSKELETAL: No cyanosis, or edema. BACK: Nontender without obvious deformity. No CVA tenderness. A/P Problem List: (1) Acute exacerbation of chronic obstructive pulmonary disease (COPD) ICD Code: J44.1 - Chronic obstructive pulmonary disease with (acute) exacerbation Status: Acute Assessment and Plan COPD exacerbation Ongoing tobaccoism - Cessation counseling provided - On mouth azithromycin 250 mg daily - Continue Duo nebs scheduled +PRN and maintain oxygen saturation above 92% - Continue IV methylprednisolone 40mg to q 8h - Continue Spiriva and Symbicort INH BID -Repeat CXR in AM Leukocytosis - Resolved Macrocytosis - Suspect secondary to alcohol abuse - Monitor Alcohol abuse - monitor for signs of DTs - [facility] protocol - Thiamine/MVI/Folic acid daily Hypertension reports hx of but has not been on medication for 10+ years - continue to monitor BP and will initiate treatment as indicated DVT prophylaxis - Lovenox sq Enoch Abrams MD Mar 06, 2017 11:47
[2017-03-06] MEDS: ONDANSETRON HCL 4 MG/2 ML VIAL IVP PRN (15:55)
[2017-03-06] MEDS: AZITHROMYCIN 250 MG TAB PO SCH (15:55)
[2017-03-06] MEDS: ENOXAPARIN SODIUM 40 MG/0.4 ML SYRINGE SQ SCH (20:26)
[2017-03-07] VITALS (9 sets, daily range): BP systolic 117–135; BP diastolic 71–78; PULSE 72–115; RESP 16–18; TEMP 97.3–97.9; O2SAT 97–99
[2017-03-07] MEDS: RESP: ALBUTEROL 2.5 MG/IPRATROPIUM 0.5 MG NEB (PRN) NEB (00:37)
[2017-03-07] MEDS: methylPREDNISolone SOD SUCC 40 MG/1 ML VIAL IV PUSH SCH (06:48)
[2017-03-07] MEDS: RESP: ALBUTEROL 2.5 MG/IPRATROPIUM 0.5 MG NEB (SCH) NEB ×2 (08:07→11:45)
[2017-03-07] MEDS: BUDESONIDE-FORMOTEROL 160/4.5 MCG INHALER INH SCH (08:16)
[2017-03-07] MEDS: TIOTROPIUM BROMIDE 18 MCG INH INH SCH (08:16)
[2017-03-07] MEDS: THIAMINE HCL 100 MG TAB PO SCH (08:18)
[2017-03-07] MEDS: REMOVE OLD PATCH T-DERMAL SCH (08:18)
[2017-03-07] MEDS: FOLIC ACID 1 MG TAB PO SCH (08:18)
[2017-03-07] MEDS: LORazepam 1 MG TAB PO PRN (08:18)
[2017-03-07] MEDS: MULTIVITAMIN TAB PO SCH (08:18)
[2017-03-07] MEDS: DOCUSATE SODIUM 50 MG/SENNA 8.6 MG TAB PO SCH (08:18)
[2017-03-07] MEDS: SODIUM CHLORIDE 0.9% FLUSH 10 ML FLUSH IV FLUSH SCH (08:18)
[2017-03-07] MEDS: guaiFENesin E.R. 600 MG TAB PO SCH (08:18)
[2017-03-07] MEDS: NICOTINE 21 MG/24 HR PATCH T-DERMAL SCH (08:19)
--- NOTE | 2017-03-07 10:55 | HHI.FF ---
Face to Face Verification Diagnosis: (1) Acute exacerbation of chronic obstructive pulmonary disease (COPD) Home Health Nursing Order: Signs/symptoms of disease process I have seen patient Edenilson Flood on 03/07/17. My clinical findings support the need for the requested home health care services because: Patient has SOB I certify that my clinical findings support that this patient is homebound because: Hx COPD- exertion dyspnea/weakness Enoch Abrams MD Mar 07, 2017 10:55
[2017-03-07] MEDS ORDERED: AZIT250T3 PO (11:05)
[2017-03-07] MEDS ORDERED: IPRA17I INH (11:05)
[2017-03-07] MEDS ORDERED: VENTAER INH (11:05)
[2017-03-07] MEDS ORDERED: PRED20 PO (11:05)
[2017-03-07] MEDS ORDERED: SPIRCAP INH (11:05)
[2017-03-07] MEDS ORDERED: Budeson-Formot 160-4.5 Mcg Inh INH (11:05)
[2017-03-07] MEDS ORDERED: guaiFENesin ER PO (11:05)
--- NOTE | 2017-03-07 11:08 | HHI.DS ---
Discharge Summary Admission Date Mar 03, 2017 at 17:56 Discharge Date: Mar 07, 2017 Admitting Diagnosis (1) Acute exacerbation of chronic obstructive pulmonary disease (COPD) ICD Code: J44.1 - Chronic obstructive pulmonary disease with (acute) exacerbation Status: Acute Procedures none Brief History - From Admission Written by Arleen Ibrahim, acting as scribe for Dr. Estrada on 03/03/17 at 17:27. This is a 61yo male with a PMHX significant for COPD with ongoing tobaccoism, HTN, anxiety and hx of collapsed lung in 2011 who presents to [facility] ED with complaints of cough with yellowish sputum production for the past several days. This morning he woke up and was severely short of breath. He tried using his albuterol inhaler at home but with minimal relief prompting him to come into the ED. While in route with EMS, patient received 125 mg of Solu- Medrol and 3 doses of albuterol nebulizer with some initial improvement but short-term after arriving at the ED patient became tachypneic with RR 32. He was placed on BiPAP. Patient's breathing has improved now and he is on nasal cannula. Patient admits to daily alcohol consumption or 4 beers per day and states his last beer was at 7:00 this morning. Patient does not use oxygen at home. CBC/BMP: 03/05/17 0520 03/05/17 0520 Significant Findings Laboratory Tests Test 03/05/17 05:20 Red Blood Count 3.88 MIL/MM3 (4.50-5.90) Mean Corpuscular Volume 101.1 FL (80.0-100.0) Mean Corpuscular Hemoglobin 35.1 PG (27.0-34.0) Neutrophils (%) (Auto) 90.2 % (16.0-70.0) Lymphocytes (%) (Auto) 4.4 % (9.0-44.0) Neutrophils # (Auto) 9.2 TH/MM3 (1.8-7.7) Lymphocytes # (Auto) 0.5 TH/MM3 (1.0-4.8) Blood Urea Nitrogen 29 MG/DL (7-18) Random Glucose 151 MG/DL (74-106) Sodium Level 133 MEQ/L (136-145) Chloride Level 97 MEQ/L (98-107) Estimat Glomerular Filtration Rate 79 ML/MIN (>89) PE at Discharge GENERAL: NAD SKIN: Warm and dry. HEAD: Normocephalic. EYES: No scleral icterus. No injection or drainage. NECK: Supple, trachea midline. No JVD or lymphadenopathy. CARDIOVASCULAR: Regular rate and rhythm without murmurs, gallops, or rubs. RESPIRATORY: Breath sounds decrease bilaterally. No accessory muscle use. Bilateral expiratory wheezes GASTROINTESTINAL: Abdomen soft, non-tender, nondistended. MUSCULOSKELETAL: No cyanosis, or edema. BACK: Nontender without obvious deformity. No CVA tenderness. Hospital Course While patient was in the hospital, she was treated for: COPD exacerbation Ongoing tobaccoism - Cessation counseling provided - Treated with mouth azithromycin 250 mg daily - Treated with Duo nebs scheduled +PRN and maintain oxygen saturation above 92% - Treated with IV methylprednisolone 40mg to q 8h and switched to PO Prednisone - Treated with Spiriva and Symbicort INH BID Leukocytosis - Resolved Macrocytosis - Suspect secondary to alcohol abuse - Monitor Alcohol abuse - monitor for signs of DTs - [facility] protocol - Thiamine/MVI/Folic acid daily Hypertension reports hx of but has not been on medication for 10+ years - continue to monitor BP and will initiate treatment as indicated DVT prophylaxis - Lovenox sq Pt Condition on Discharge: Stable Discharge Disposition: Disch w/ Home Health Serv Discharge Time: <= 30 minutes Discharge Instructions DIET: Follow Instructions for: Heart Healthy Diet Activities you can perform: Regular-No Restrictions Follow up Referrals: PCP Follow-up - 1 Week New Medications: Albuterol 18 GM Inh (Ventolin Hfa 18 GM Inh) 90 Mcg/Act Aer 2 PUFF INH Q4-6H PRN for SHORTNESS OF BREATH, #1 INHALER 3 Refills Ipratropium HFA 12.9 GM Inh (Atrovent HFA 12.9 GM Inh) 17 Mcg/Actuation Aer 2 PUFF INH QID for Shortness of Breath, #1 INHALER 3 Refills Azithromycin (Azithromycin) 250 Mg Tab 250 MG PO Q24H for Infection, #5 TAB Prednisone (Prednisone) 20 Mg Tab 20 MG PO BID for Breathing Treatment, #14 TAB Tiotropium Inh (Spiriva Handihaler) 18 Mcg Cap 18 MCG INH DAILY for Breathing Treatment, #30 CAP 3 Refills 1 capsule = 18 mcg [Budeson-Formot 160-4.5 Mcg Inh] () 60 PUFF AERO 2 PUFF INH Q12HR, #1 4 Refills [guaiFENesin ER] () 600 MG TABCR 600 MG PO BID, #20 Discontinued Medications: Albuterol 18 GM Inh (Ventolin Hfa 18 GM Inh) 90 Mcg/Act Aer 2 PUFF INH Q4-6H PRN for SHORTNESS OF BREATH, #1 INHALER 1 Refill Two puffs every 4-6 hrs as needed for shortness of breath or wheezing. If you need to use more often, call your doctor. Albuterol 18 GM Inh (Ventolin Hfa 18 GM Inh) 90 Mcg/Act Aer 2 PUFF INH Q4-6H PRN for SHORTNESS OF BREATH, #1 INHALER 0 Refills Budesonide-Formoterol Inh (Symbicort Inh) 160-4.5 Mcg/Act Aero 2 PUFF INH Q12HR for COPD, #1 INHALER Enoch Abrams MD Mar 07, 2017 11:08
[2017-03-07] MEDS ORDERED: predniSONE 20 MG TAB PO SCH (21:00)
== END 2017-03-07 13:54 | disposition home health service (06) | DRG 192 ==
LOC: NEPE 14:22 → NEDA 17:56 → N04B 18:38
PROVIDERS: ADMIT Hospitalist; ATTEND Hospitalist
PROC: 5A09357 Assistance with Respiratory Ventilation, Less than 24 Consecutive Hours, Continuous Positive Airway Pressure (ICD-10-PCS; principal; 2017-03-03)
DX: J44.1 Chronic obstructive pulmonary disease with (acute) exacerbation (principal); D72.829 Elevated white blood cell count, unspecified; F41.9 Anxiety disorder, unspecified; F17.210 Nicotine dependence, cigarettes, uncomplicated; I25.10 Atherosclerotic heart disease of native coronary artery without angina pectoris; F10.10 Alcohol abuse, uncomplicated; D75.89 Other specified diseases of blood and blood-forming organs; R06.82 Tachypnea, not elsewhere classified; K21.9 Gastro-esophageal reflux disease without esophagitis
CPT/HCPCS: 36600; 71045; 80048; 82550; 82552; 82805; 83735; 83880; 85025; 87804; 93005; 94002; 94640; 94664; 96365; 96368; 96375; J0456; J0696; J1650; J2060; J2405; J2920; J7050